=== PATIENT | female | born 1945 | race Caucasian/White ===

== ENCOUNTER → 2022-09-14 12:40 | Outpatient (BNVA) | payer MEDICARE, SELFPAY | PROVIDERS: PCP Pediatrics; Visit Provider Psychiatry & Neurology Psychiatry | DX: F32.4 Major depressive disorder, single episode, in partial remission (principal) | CPT/HCPCS: 90833; 99212 ==

== ENCOUNTER → 2023-03-10 11:25 | Outpatient (BNVA) | payer MEDICARE, SELFPAY | PROVIDERS: PCP Pediatrics; Visit Provider Psychiatry & Neurology Psychiatry | DX: F32.4 Major depressive disorder, single episode, in partial remission (principal); E78.00 Pure hypercholesterolemia, unspecified; I10 Essential (primary) hypertension | CPT/HCPCS: 90833; 99212 ==

== ENCOUNTER 2023-07-23 12:05 | Outpatient (AMB) | payer MEDICARE, SELFPAY ==
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
== END 2023-07-23 17:17 | disposition home or self-care (01) ==
LOC: HO.HOP 12:05
PROVIDERS: PCP Pediatrics; Visit Provider Psychiatry & Neurology Psychiatry
DX: E78.00 Pure hypercholesterolemia, unspecified (principal); I10 Essential (primary) hypertension; F32.4 Major depressive disorder, single episode, in partial remission
CPT/HCPCS: 90833; 99213

== ENCOUNTER → 2023-07-23 12:05 | Outpatient (BNVA) | payer MEDICARE, SELFPAY | PROVIDERS: PCP Pediatrics; Visit Provider Psychiatry & Neurology Psychiatry | DX: F32.4 Major depressive disorder, single episode, in partial remission (principal); E78.00 Pure hypercholesterolemia, unspecified; I10 Essential (primary) hypertension | CPT/HCPCS: 90833; 99212 ==

== ENCOUNTER 2023-12-30 10:56 | Outpatient (AMB) | payer MEDICARE, SELFPAY ==
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
== END 2023-12-30 12:07 | disposition home or self-care (01) ==
LOC: HO.HOP 10:56
PROVIDERS: PCP Pediatrics; Visit Provider Psychiatry & Neurology Psychiatry
DX: F32.4 Major depressive disorder, single episode, in partial remission (principal)
CPT/HCPCS: 90833; 99213

== ENCOUNTER → 2023-12-30 10:56 | Outpatient (BNVA) | payer MEDICARE, SELFPAY | PROVIDERS: PCP Pediatrics; Visit Provider Psychiatry & Neurology Psychiatry | DX: F32.4 Major depressive disorder, single episode, in partial remission (principal) | CPT/HCPCS: 99212 ==

== ENCOUNTER → 2024-03-09 11:03 | Outpatient (BNVA) | payer MEDICARE, SELFPAY | PROVIDERS: PCP Pediatrics; Visit Provider Psychiatry & Neurology Psychiatry ==

== ENCOUNTER 2024-07-26 12:51 | Outpatient (AMB) | payer MEDICARE, SELFPAY ==
--- OUTSIDE RECORDS SUMMARY | 2024-07-26 12:52 | XMS_ITS | Continuity of Care Document ---
Author Organization [facility] Address [address] [place] [address]- Care Team Providers Care Circus Train Supervisor Name Role Phone Hakeem BOOGIE, Dannie Primary Care Physician Encounter [facility] [place] Date(s): 03/30/23 - 04/29/23 [facility] [address] [place] [id number] Allergies, Adverse Reactions, Alerts Substance Reaction Severity Status Demerol HCl Rash/Headache Active Medications Calcium 600 +D oral tablet 2, tablet, By Mouth, Daily, 01/24/09 23:07:38 Start Date: 01/24/09 Stop Date: 02/23/09 Status: Ordered Fioricet Tablet By Mouth, Every 4 hours, 0 Refills, Maintenance, 03/24/19 10:42:17 EDT Start Date: 03/24/19 Status: Ordered LORazepam 1 mg oral tablet 1 tablet = 1 mg, By Mouth, 2 times a day, PRN as needed for anxiety, 0 Refills, Maintenance, 03/24/19 10:39:34 EDT, Tablet Start Date: 03/24/19 Status: Ordered Multivitamin 1, tablet, By Mouth, Daily, 01/24/09 23:07:09, Constant Indicator Start Date: 01/24/09 Stop Date: 02/23/09 Status: Ordered omeprazole 20 mg oral delayed release tablet 1 tablet = 20 mg, By Mouth, Daily, PRN Dyspepsia, # 120 tablet, 0 Refills, Maintenance, 07/15/20 13:10:00 EDT, EC Tablet Start Date: 07/15/20 Status: Ordered simvastatin 20 mg oral tablet 20 mg, 1, tablet, By Mouth, Daily at bedtime, # 30 tablet, Refills 0, Maintenance, 03/24/19 10:42:01 EDT Start Date: 03/24/19 Status: Ordered Toprol XL 50 mg oral tablet, extended release 100 mg, By Mouth, Daily, Soft Stop Start Date: 01/24/09 Stop Date: 02/23/09 Status: Ordered traZODone 100 mg oral tablet 100 mg, 1, tablet, By Mouth, Daily at bedtime, # 180 tablet, Refills 0, Maintenance, 03/24/19 10:40:26 EDT Start Date: 03/24/19 Status: Ordered Wellbutrin XL 300 mg/24 hours oral tablet, extended release 300 mg, By Mouth, Every 24 hours, 01/24/09 23:06:35 Start Date: 01/24/09 Stop Date: 02/22/09 Status: Ordered Social History Social History Type Response Smoking Status Never (less than 100 in lifetime) entered on: 02/06/22 Sex Patient Care team information Care Team Personnel Name: Dannie Palacio MD Position: Reference Physician Member Role: PCP Address: Address: [address] [place] [address]- Care Team Related Persons Name: MEE PATRICIA Address: home [address] [place] [address]
--- OUTSIDE RECORDS SUMMARY | 2024-07-26 12:52 | XMS_ITS | Continuity of Care Document ---
Author Organization [facility] Address [address] [place] [address] [address] [place] [address]- Care Team Providers Care Mechanic Senior Name Role Phone Dannie Palacio MD Primary Care Physician [place] [facility] [place]23 - 11/28/23 [facility] [address] [place], [place] [address] Allergies, Adverse Reactions, Alerts Substance Reaction [...] Reference Physician Member Role: PCP Address: Address: [address] [place] [address]- Care Team Related Persons Name: MEE PATRICIA Address: home [address] [place] [address]
--- OUTSIDE RECORDS SUMMARY | 2024-07-26 12:52 | XMS_ITS | Continuity of Care Document ---
Author Organization [facility] Address [address] [place] [address]- Care Team Providers Care Local Area Network Administrator Name Role Phone Hakeem BOOGIE, Dannie Primary Care Physician Encounter [facility] [place] Date(s): 03/08/24 - 04/07/24 [facility] [address] [place] [id number] Allergies, Adverse Reactions, Alerts Substance Reaction Severity Status Demerol HCl Rash/Headache Active Medications Calcium 600 +D oral tablet 2, tablet, By Mouth, Daily, 01/24/09 23:07:38 Start Date: 01/24/09 Stop Date: 02/23/09 Status: Ordered Colace sodium 100 mg oral capsule 100 mg, 1, capsule, By Mouth, 2 times a day, PRN, # 20 capsule, Refills 0, Tot. Refills 0, Maintenance, for constipation, 02/09/24 14:29:00 EDT, Route to Pharmacy Electronically, [facility]/pharmacy #[id number], Partial fill upon patient request if the prescriptio... Start Date: 02/09/24 Status: Ordered Fioricet Tablet By Mouth, Every 4 hours, 0 Refills, Maintenance, 03/24/19 10:42:17 EDT Start Date: 03/24/19 Status: Ordered levothyroxine 0.1 mg oral tablet 1 tablet = 100 mcg, By Mouth, Daily, # 30 tablet, 11 Refills, Maintenance, 03/09/24 15:52:00 EDT, [facility]/pharmacy #[id number], Partial fill upon patient request if the prescription is for a schedule II opioiddrug., 152.9, cm, 02/24/24 13:12:00 EDT, Height, 70... Start Date: 03/09/24 Status: Ordered LORazepam 1 mg oral tablet [...] EC Tablet Start Date: 07/15/20 Status: Ordered PROzac 10 mg oral capsule 10 mg, 1, capsule, By Mouth, Daily, # 30 capsule, Refills 0, Maintenance, 02/09/24 11:32:00 EDT, Partial fill upon patient request if the prescription is for a schedule II opioid drug. Start Date: 02/09/24 Status: Ordered simvastatin 20 mg oral tablet [...] Date: 01/24/09 Stop Date: 02/22/09 Status: Ordered Problem List Condition Confirmation Course Effective Dates Status H ealth Status Informant Bursitis of hip Confirmed Active CKD (chronic kidney disease) 1 Confirmed Active Impaired glucose metabolism 2 Confirmed Active Dyslipidemia Confirmed Active GERD (gastroesophageal reflux disease) 3 Confirmed Active Hiatal hernia Confirmed Active Hypertension Confirmed Active Migraines Confirmed Active Depression with anxiety Confirmed Active Multinodular goiter (nontoxic) Confirmed Active Osteoarthritis Confirmed Active Osteoporosis Confirmed Active RBBB Confirmed Active 1Estimated GFR between 54 and 61 in review of labs from 2021 on 2Hemoglobin A1c of 6 in late 2022 3h/o gastritis Social History Social History Type Response Smoking Status Never (less than 100 in lifetime) entered on: 02/06/22 Sex Patient Care team information Care Team Personnel Name: Issa BLAND, Kelle Position: S RN Member Role: Primary Care Nurse Name: Hakeem BOOGIE, Dannie Position: Reference Physician Member Role: PCP Address: Address: [address] [place] [address]- Care Team Related Persons Name: MEE PATRICIA Address: home [address] [place] [address]
--- OUTSIDE RECORDS SUMMARY | 2024-07-26 12:53 | XMS_ITS | Continuity of Care Document ---
Author Organization [facility] Address [address] [place] [address]- Care Team Providers Care Unscrambler Name Role Phone Hakeem BOOGIE, Dannie Primary Care Physician [phone] [place] [facility] [place](s): 03/24/23 - 04/23/23 [facility] [address] [place] [id number] Allergies, Adverse Reactions, Alerts Substance [...] Reference Physician Member Role: PCP Address: Address: [address] [place] [address]- Care Team Related Persons Name: MEE PATRICIA Address: home [address] [place] [address]
--- OUTSIDE RECORDS SUMMARY | 2024-07-26 12:53 | XMS_ITS | Continuity of Care Document ---
Author Organization [facility] Address [address] [facility] [place] [address]- Care Team Providers Care Business Rules Analyst Name Role Phone Hakeem BOOGIE, Dannie Primary Care Physician [phone] Encounter 10/22/21 - 10/29/21 [facility] [address], [address] [place] [address]- Attending Physician: Dannie Palacio MD Admitting Physician: Dannie Palacio MD Referring Physician: Dannie Palacio MD Allergies, Adverse Reactions, Alerts Substance Reaction Severity [...] (less than 100 in lifetime) entered on: 03/24/19 Sex
--- OUTSIDE RECORDS SUMMARY | 2024-07-26 12:53 | XMS_ITS | Continuity of Care Document ---
Author Organization [facility] Address [address] [place] [address]- Care Team Providers Care Copper Plater Name Role Phone Hakeem BOOGIE, Dannie Primary Care Physician Encounter [facility] [place] Date(s): 05/19/21 - 06/18/21 [facility] [address] [place] [id number] Allergies, Adverse Reactions, Alerts Substance Reaction [...]
--- OUTSIDE RECORDS SUMMARY | 2024-07-26 12:53 | XMS_ITS | Continuity of Care Document ---
Author Organization [facility] Address [address] [place] [address]- Care Team Providers Care Merchandise Carrier Name Role Phone Dannie Palacio MD Primary Care Physician [phone] Encounter [facility] [place] [facility] [id number] Date(s): 05/01/24 - 05/31/24 [facility] [address] [place] [phone] Allergies, Adverse Reactions, Alerts Substance Reaction Severity [...] 02/09/24 14:29:00 EDT, Route to Pharmacy Electronically, [facility]/pharmacy #[id number], Partial fill upon patient request if the prescriptio... Start Date: 02/09/24 Status: Ordered Fioricet Tablet By Mouth, Every 4 hours, 0 Refills, Maintenance, 03/24/19 10:42:17 EDT Start Date: 03/24/19 Status: Ordered levothyroxine 0.1 mg oral tablet See Instructions, 1 tablet By Mouth 6xweekly. Take 0.5 tabs on day 7., # 30 each, 11 Refills, Maintenance, 03/09/24 15:52:00 EDT, [facility]/pharmacy #[id number], Partial fill upon patient request if the prescription is for a schedule II opioid drug., 152.9, cm, 0... Start Date: 03/09/24 Status: Ordered LORazepam 1 [...] Reference Physician Member Role: PCP Address: Address: [address] [place] [address]- Care Team Related Persons Name: MEE PATRICIA Address: home [address] [place] [address]
--- OUTSIDE RECORDS SUMMARY | 2024-07-26 12:53 | XMS_ITS | Continuity of Care Document ---
Author Organization [facility] Address [address] [place] [address]- Care Team Providers Care Stitching Machine Operator Name Role Phone Dannie Palacio MD Primary Care Physician Encounter [facility] [place] Date(s): 07/11/20 - 08/18/[address] [address]- [facility] Attending Physician: Nick Sanchez MD Admitting Physician: Nick Sanchez MD Referring Physician: Nick Sanchez MD Allergies, Adverse Reactions, Alerts Substance Reaction Severity Status Demerol HCl Rash/Headache Active Medications Calcium 600 +D oral tablet 2, tablet, By Mouth, Daily, 01/24/09 23:07:38 Start Date: 01/24/09 Stop Date: 02/23/09 Status: Ordered Effexor XR 150 mg oral capsule, extended release 150 mg, 1, capsule, By Mouth, Daily, # 30 capsule, Refills 0, Maintenance, 03/24/19 10:39:10 EDT Start Date: 03/24/19 Status: Ordered Effexor XR 150 mg oral capsule, extended release 150 mg, By Mouth, Daily, 01/24/09 23:06:10 Start Date: 01/24/09 Stop Date: 02/23/09 Status: [...] 1 tablet = 20 mg, By Mouth, 2 times a day, # 120 tablet, 0 Refills, Maintenance, 07/15/20 13:10:00 EDT, EC Tablet Start Date: 07/15/20 Status: Ordered simvastatin 20 mg oral tablet 20 mg, 1, tablet, By Mouth, Daily at bedtime, # 30 tablet, Refills 0, Maintenance, 03/24/19 10:41:18 EDT Start Date: 03/24/19 Status: Ordered simvastatin 20 mg oral tablet 20 mg, 1, tablet, By Mouth, Daily at bedtime, # 30 tablet, Refills 0, Maintenance, 03/24/19 10:42:01 EDT Start Date: 03/24/19 Status: Ordered Toprol XL 50 mg oral tablet, extended release 50 mg, By Mouth, Daily, 01/24/09 23:06:22 Start Date: 01/24/09 Stop Date: 02/23/09 Status: Ordered traZODone 100 mg oral tablet 100 mg, 1, tablet, By Mouth, 2 times a day, # 180 tablet, Refills 0, Maintenance, 03/24/19 10:40:26EDT Start Date: 03/24/19 Status: Ordered trazodone 100 mg oral tablet 100 mg, 1, tablet, By Mouth, 3 times a day, 01/24/09 23:06:53 Start Date: 01/24/09 Stop Date: 02/23/09 Status: Ordered Wellbutrin XL 300 mg/24 hours oral tablet, extended release 300 mg, By Mouth, Every 24 hours, 01/24/09 23:06:35 Start Date: 01/24/09 Stop Date: 02/22/09 Status: Ordered Social History Social History Type Response Smoking Status Never (less than 100 in lifetime) entered on: 03/24/19 Sex
--- OUTSIDE RECORDS SUMMARY | 2024-07-26 12:53 | XMS_ITS | Continuity of Care Document ---
Author Organization [facility] Address [address] [place] [address] [address] [place] [address]- Care Team Providers Care Mortar Mixer Name Role Phone Dannie Palacio MD Primary Care Physician [phone] [place] [facility] [place] - 03/[place]/[address] [place], [place] [address] Attending Physician: Douglas BOOGIE, May Referring Physician: Dannie Palacio MD Allergies, Adverse [...] 02/09/24 14:29:00 EDT, Route to Pharmacy Electronically, [facility]/pharmacy #[id number], Partial fill upon patient request if the prescriptio... Start Date: 02/09/24 Status: Ordered Fioricet Tablet By Mouth, Every 4 hours, 0 Refills, Maintenance, 03/24/19 10:42:17 EDT Start Date: 03/24/19 Status: Ordered levothyroxine 0.112 mg oral tablet 1 tablet = 112 mcg, By Mouth, Daily, # 30 tablet, 2 Refills, Maintenance, 02/09/24 14:29:00 EDT, Tablet, [facility]/pharmacy #[id number], Partial fill upon patient request if the prescription is for a schedule IIopioid drug., 152.9, cm, 02/09/24 11:34:00 EDT, Hei... Start Date: 02/09/24 Stop Date: 05/09/24 Status: Ordered LORazepam 1 mg oral tablet [...] of 6 in late 2022 3h/o gastritis Vital Signs Most recent to oldest [Reference Range]: 1 Height 152.9 cm (02/24/24 1:12 PM) Weight 69.2 kg (02/24/24 1:12 PM) Pulse Rate [55-90 bpm] 81 bpm (02/24/24 1:12 PM) Body Mass Index [18.5-24.99 kg/m2] 29.6 kg/m2 *H* (02/24/24 1:12 PM) Blood Pressure [90-138/55-84 mm Hg] 159/ 85mm Hg *H* (02/24/24 1:12 PM) Temperature [96.8-100.4 DegF] 97.9 DegF (02/24/24 1:12 PM) Blood pressure sites Arm, left (02/24/24 1:12 PM) Temperature Route Temporal (02/24/24 1:12 PM) Social History Social History Type Response Smoking Status Never (less than 100 in lifetime) entered on: 02/06/22 Sex Patient Care team information Care Team Personnel Name: Kelle Parsons RN Position: ALISHA RN Member Role: Primary Care Nurse Name: Dannie Palacio MD Position: Reference Physician Member Role: PCP Address: Address: [address] [place] [address] Care Team Related Persons Name: HARSHADMEE Address: home [address] [place] [address]
--- OUTSIDE RECORDS SUMMARY | 2024-07-26 12:53 | XMS_ITS | Continuity of Care Document ---
Author Organization [facility] Address [address] [place] [address]- Care Team Providers Care Dry Mop Maker Name Role Phone Hakeem BOOGIE, Dannie Primary Care Physician [place] [facility] [place](s): 05/25/24 - 06/24/24 [facility] [address] [place] [id number] Allergies, Adverse Reactions, Alerts Substance Reaction Severity [...] 02/09/24 14:29:00 EDT, Route to Pharmacy Electronically, [facility]/pharmacy #[id number], Partial fill upon patient request if the prescriptio... Start Date: 02/09/24 Status: Ordered Fioricet Tablet By Mouth, Every 4 hours, 0 Refills, Maintenance, 03/24/19 10:42:17 EDT Start Date: 03/24/19 Status: Ordered levothyroxine 0.1 mg oral tablet See Instructions, 1 tablet By Mouth 6xweekly. Take 0.5 tabs on day 7., # 30 each, 11 Refills, Maintenance, 03/09/24 15:52:00 EDT, [facility]/pharmacy #[id number], Partial fill upon patient request [...] Reference Physician Member Role: PCP Address: Address: [address] [place] [address] Care Team Related Persons Name: HARSHADMEE Address: home [address] [place] [address]
--- OUTSIDE RECORDS SUMMARY | 2024-07-26 12:53 | XMS_ITS | Continuity of Care Document ---
Author Organization [facility] Address [address] [place] [address]- Care Team Providers Care Bowling Alley Manager Name Role Phone Dannie Palacio MD Primary Care Physician [phone] Encounter [facility] [place] Date(s): 06/14/20 - 08/15/20 [facility] [address] [place] [address]- [facility] Attending Physician: Allyn Wei MD Admitting Physician: Allyn Wei MD Referring Physician: Dannie Palacio MD Allergies, [...]
--- OUTSIDE RECORDS SUMMARY | 2024-07-26 12:53 | XMS_ITS | Continuity of Care Document ---
Author Organization [facility] Address [address] [place] [address]- Care Team Providers Care Filenet P8 Developer Name Role Phone Dannie Palacio MD Primary Care Physician [phone] Encounter [facility] [place] Date(s): 07/15/20 - 08/14/20 [facility] [address] [place] [address]- [facility] Attending Physician: Claire Kennedy Admitting Physician: Claire Kennedy Referring Physician: AdmtrClaire Allergies, Adverse Reactions, Alerts Substance Reaction Severity [...]
--- OUTSIDE RECORDS SUMMARY | 2024-07-26 12:53 | XMS_ITS | Continuity of Care Document ---
Author Organization [facility] Address [address] [place] [address]- Care Team Providers Care Director Of Event Sales Name Role Phone Hakeem BOOGIE, Dannie Primary Care Physician En[place] [facility] [place] Date(s): 10/06/23 - 11/05/23 [facility] [address] [place] [address] [[email or web address]] Allergies, Adverse Reactions, Alerts Substance Reaction Severity [...] Reference Physician Member Role: PCP Address: Address: [address] [place] [address]- Care Team Related Persons Name: MEE PATRICIA Address: home [address] [place] [address]
--- OUTSIDE RECORDS SUMMARY | 2024-07-26 12:53 | XMS_ITS | Continuity of Care Document ---
Author Organization [facility] Address [address] [place] [address]- Care Team Providers Care Clerk Entry Level Name Role Phone Hakeem BOOGIE, Dannie [id number]s): [facility] - 02/02/24 [facility] [address], [place] [address] Attending Physician: Fam Wilkerson DO Referring Physician: Douglas BOOGIE, May Allergies, Adverse Reactions, Alerts Substance Reaction Severity [...] of 6 in late 2022 3h/o gastritis Procedures Procedure Date Related Diagnosis Body Site Status Appendectomy 1958 Completed Cervical spine surgery Co mpleted Hysterectomy and left salpingo-oophorectomy sample 1 C ompleted Tubal ligation Completed 1Reportedly some residual right ovarian tissue Vital Signs Most recent to oldest [Reference Range]: 1 Height 152.9 cm (01/26/24 11:55 AM) Weight 69.9 kg (01/26/24 11:55 AM) Oxygen Saturation [94-100 %] 97 % (01/26/24 11:55 AM) Pulse Rate [55-90 bpm] 88 bpm (01/26/24 11:55 AM) Body Mass Index [18.5-24.99 kg/m2] 29.9 kg/m2 *H* (01/26/24 11:55 AM) Blood Pressure [90-138/55-84 mm Hg] 146/ 63mm Hg *H* (01/26/24 11:55 AM) Respiratory Rate [16-30 br/min] 18 br/mi n (01/26/24 11:55 AM) Blood pressure sites Arm, left (01/26/24 11:55 AM) Weight Obtained Via Standing scale (01/26/24 11:55 AM) Social History Social History Type Response Smoking Status Never (less than 100 in lifetime) entered on: 02/06/22 Sex EKG study * Event Display: ECG 12-Lead Authored Date: Please click on pdf link to open report * Event Display: ECG 12-Lead Authored Date: Ventricular Rate: 83 BPM Atrial Rate: 83 BPM P-R Interval: 150 ms QRS Duration: 124 ms Q-T Interval: 388 ms QTC Calculation(Bazett): 455 ms P [place]: 22 degrees R [place]: -10 degrees T [place]: 14 degrees Normal sinus rhythm Right bundle branch block Moderate voltage criteria for LVH, may be normal variant Abnormal ECG When compared with ECG of 06-FEB-2022 07:55, No significant change was found Confirmed by PAZ LUNSFORD MD ([id number]) on 01/26/2024 12:13:37 PM [place]: PAZ LUNSFORD MD Patient Care team information Care Team Personnel Name: Dannie Palacio MD Position: Reference Physician Member Role: PCP Address: Address: [address] [place] [address]- Care Team Related Persons Name: MEE PATRICIA Address: home [address] [place] [address]
--- OUTSIDE RECORDS SUMMARY | 2024-07-26 12:53 | XMS_ITS | Continuity of Care Document ---
Author Organization [facility] Address [address] [place] [address]- Care Team Providers Care Principal Security Architect Name Role Phone Hakeem BOOGIE, Dannie Primary Care Physician En[facility] [place] Date(s): 06/23/24 - 07/23/24 [facility] [address] [place] [id number] Allergies, Adverse Reactions, Alerts Substance Reaction [...] 02/09/24 14:29:00 EDT, Route to Pharmacy Electronically, [facility]/pharmacy #[id number], Partial fill upon patient request if the prescriptio... Start Date: 02/09/24 Status: Ordered Fioricet Tablet By Mouth, Every 4 hours, 0 Refills, Maintenance, 03/24/19 10:42:17 EDT Start Date: 03/24/19 Status: Ordered levothyroxine 0.1 mg oral tablet See Instructions, 1 tablet By Mouth 6xweekly. Take 0.5 tabs on day 7., # 30 each, 11 Refills, Maintenance, 03/09/24 15:52:00 EDT, [facility]/pharmacy #[id number], Partial fill upon patient request if [...] Reference Physician Member Role: PCP Address: Address: [address] [place] [address] Care Team Related Persons Name: HARSHADMEE Address: home [address] [place] [address]
--- OUTSIDE RECORDS SUMMARY | 2024-07-26 12:53 | XMS_ITS | Continuity of Care Document ---
Author Organization [facility] Address [address] [place] [address] [address] [place] [address]- Care Team Providers Care Jukebox Coin Collector Name Role Phone Dannie Palacio MD Primary Care Physician [place] [facility] [place] Date(s): 11/25/23 - 12/25/23 [facility] [address] [place], [place] [address] Allergies, Adverse Reactions, Alerts Substance Reaction Severity [...] Reference Physician Member Role: PCP Address: Address: [address] [place] [address]- Care Team Related Persons Name: MEE PATRICIA Address: home [address] [place] [address]
--- OUTSIDE RECORDS SUMMARY | 2024-07-26 12:53 | XMS_ITS | Continuity of Care Document ---
Author Organization [facility] Address [address] [place] [address]- Care Team Providers Care Crozer Operator Name Role Phone Hakeem BOOGIE, Dannie Primary Care Physician [phone] En[place] [facility] [place] Date(s): 10/08/23 - 11/07/23 [facility] [address] [place] [address] [...] Reference Physician Member Role: PCP Address: Address: [address] [place] [address]- Care Team Related Persons Name: MEE PATRICIA Address: home [address] [place] [address]
--- OUTSIDE RECORDS SUMMARY | 2024-07-26 12:53 | XMS_ITS | Continuity of Care Document ---
Author Organization [facility] Address [address] [place] [address]- Care Team Providers Care Regional Intermodal Truck Driver Name Role Phone Dannie Palacio MD Primary Care Physician [phone] Encounter [facility] [place] Date(s): 09/05/21 - 10/19/21 [facility] [address] [place] [address] Attending Physician: Gloria Beltran MD Admitting Physician: Devin BOOGIE, Gloria Referring Physician: Dannie Palacio MD Allergies, Adverse [...]
--- OUTSIDE RECORDS SUMMARY | 2024-07-26 12:53 | XMS_ITS | Continuity of Care Document ---
Author Organization [facility] Address [address] [place] [address]- Care Team Providers Care Maintenance Technician 3Rd Shift Name Role Phone Hakeem BOOGIE, Dannie Primary Care Physician [place] [facility] [place] Date(s[place] 05/07/21 - 06/06/21 [facility] [address] [place] [address] Attending Physician: Claire Kennedy Admitting Physician: Claire [...]
--- OUTSIDE RECORDS SUMMARY | 2024-07-26 12:53 | XMS_ITS | Continuity of Care Document ---
Author Organization [facility] Address [address] [place] [address]- Care Team Providers Care Maintenance Services Dispatcher Name Role Phone Hakeem BOOGIE, Dannie Primary Care Physician En[place] [facility] [place] Date(s): 03/09/24 - 04/08/24 [facility] [address] [place] [address] [...] 02/09/24 14:29:00 EDT, Route to Pharmacy Electronically, [facility]/pharmacy #[id number], Partial fill upon patient request if the prescriptio... Start Date: 02/09/24 Status: Ordered Fioricet Tablet By Mouth, Every 4 hours, 0 Refills, Maintenance, 03/24/19 10:42:17 EDT Start Date: 03/24/19 Status: Ordered levothyroxine 0.1 mg oral tablet 1 tablet = 100 mcg, By Mouth, Daily, # 30 tablet, 11 Refills, Maintenance, 03/09/24 15:52:00 EDT, [facility]/pharmacy #[id number], Partial fill upon patient request if [...] Reference Physician Member Role: PCP Address: Address: [address] [place] [address] Care Team Related Persons Name: MEE PATRICIA Address: home [address] [place] [address]
--- OUTSIDE RECORDS SUMMARY | 2024-07-26 12:53 | XMS_ITS | Continuity of Care Document ---
Author Organization [facility] Address [address] [place] [address]- Care Team Providers Care Veterinary Laboratory Diagnostician Name Role Phone Hakeem BOOGIE, Dannie Primary Care Physician [place] [facility] [place] 12/21/23 - 01/20/24 [facility] [address] [place] [phone] Allergies, Adverse Reactions, Alerts Substance Reaction [...] Reference Physician Member Role: PCP Address: Address: [address] [place] [address]- Care Team Related Persons Name: MEE PATRICIA Address: home [address] [place] [address]
--- OUTSIDE RECORDS SUMMARY | 2024-07-26 12:53 | XMS_ITS | Continuity of Care Document ---
Author Organization [facility] Address [address] [place] [address]- Care Team Providers Care Stay Cutter Name Role Phone Hakeem BOOGIE, Dannie Primary Care Physician En[place] [facility] [place] Date(s): 03/04/23 - 04/03/23 [facility] [address] [place] [address] Allergies, Adverse Reactions, Alerts Substance Reaction [...] Reference Physician Member Role: PCP Address: Address: [address] [place] [address]- Care Team Related Persons Name: MEE PATRICIA Address: home [address] [place] [address]
--- OUTSIDE RECORDS SUMMARY | 2024-07-26 12:53 | XMS_ITS | Continuity of Care Document ---
Author Organization [facility] Address [address] [place] [address]- Care Team Providers Care Sales Floor Manager Name Role Phone Hakeem BOOGIE, Dannie Primary Care Physician Encounter [facility] [place] Date(s): 07/23/21 - 08/22/21 [facility] [address] [place] [address] Allergies, Adverse Reactions, Alerts Substance [...]
--- OUTSIDE RECORDS SUMMARY | 2024-07-26 12:53 | XMS_ITS | Continuity of Care Document ---
Author Organization [facility] Address [address] [place] [address]- Care Team Providers Care Leasing Property Manager Name Role Phone Hakeem BOOGIE, Dannie Primary Care Physician [phone] En[place] [facility] [place] Date(s): 12/21/23 - 01/20/24 [facility] [address] [place] [address] Allergies, Adverse Reactions, Alerts Substance [...] Physician Member Role: PCP Address: Address: [address] [place] [address]- Care Team Related Persons Name: MEE PATRICIA Address: home [address] [place] [address]
--- OUTSIDE RECORDS SUMMARY | 2024-07-26 12:53 | XMS_ITS | Continuity of Care Document ---
Author Organization [facility] Address [address] [place] [address]- Care Team Providers Care Head Of Global Strategic Partnerships Name Role Phone Dannie Palacio MD Primary Care Physician [phone] [place] [facility] [place]10/[place] - 06/25/21 [facility] [address] [place] [address] Attending Physician: Gloria Beltran MD Admitting Physician: [...]
--- OUTSIDE RECORDS SUMMARY | 2024-07-26 12:53 | XMS_ITS | Continuity of Care Document ---
Author Organization [facility] Address [address] [place] [address] [address] [place] [address]- Care Team Providers Care Aircraft Motor Mechanic Name Role Phone Dannie Palacio MD Primary Care Physician Encounter [facility] [place] Date(s): 11/25/23 - 12/25/23 [facility] [address] [place], [place] [address] Allergies, Adverse Reactions, Alerts Substance Reaction Severity [...] Reference Physician Member Role: PCP Address: Address: [address] [place] [address]- Care Team Related Persons Name: MEE PATRICIA Address: home [address] [place] [address]
--- OUTSIDE RECORDS SUMMARY | 2024-07-26 12:53 | XMS_ITS | Continuity of Care Document ---
Author Organization [facility] Address [address] [place] [address] [address] [place] [address]- Care Team Providers Care Gastrointestinal Technician Name Role Phone Hakeem BOOGIE, Dannie Primary Care Physician Encounter [facility] [place] Date(s): 10/28/23 - 11/04/23 [facility] [address] [place], [place] [address] Attending Physician: Douglas BOOGIE, May Referring Physician: Samantha Cordova MD Allergies, Adverse Reactions, Alerts Substance Reaction [...] Date: 01/24/09 Stop Date: 02/22/09 Status: Ordered Vital Signs Most recent to oldest [Reference Range]: 1 Height 152.9 cm (10/28/23 9:17 AM) Weight 70.0 kg (10/28/23 9:17 AM) Pulse Rate [55-90 bpm] 83 bpm (10/28/23 9:17 AM) Body Mass Index [18.5-24.99 kg/m2] 29.94 kg/m2 *H* (10/28/23 9:17 AM) Blood Pressure [90-138/55-84 mm Hg] 178/ 78mm Hg *H* (10/28/23 9:17 AM) Temperature [96.8-100.4 DegF] 97.1 DegF (10/28/23 9:17 AM) Blood pressure sites Arm, left (10/28/23 9:17 AM) Temperature Route Temporal (10/28/23 9:17 AM) Social History Social History Type Response Smoking Status Never (less than 100 in lifetime) entered on: 02/06/22 Sex Patient Care team information Care Team Personnel Name: Dannie Palacio MD Position: Reference Physician Member Role: PCP Address: Address: [address] [place] [address]- Care Team Related Persons Name: MEE PATRICIA Address: home [address] [place] [address]
--- OUTSIDE RECORDS SUMMARY | 2024-07-26 12:53 | XMS_ITS | Continuity of Care Document ---
Author Organization [facility] Address [address] [place] [address]- Care Team Providers Care Electric Cutter Operator Name Role Phone Hakeem BOOGIE, Dannie Primary Care Physician [facility] [place] Date(s): 09/19/21 - 10/19/21 [facility] [address] [place] [address] Attending Physician: Claire Kennedy Admitting Physician: Claire Kennedy Referring Physician: Admtr ArClif Allergies, Adverse Reactions, Alerts Substance Reaction Severity [...]
--- OUTSIDE RECORDS SUMMARY | 2024-07-26 12:53 | XMS_ITS | Continuity of Care Document ---
Author Organization [facility] Address [address] [place] [address]- Care Team Providers Care Horizontal Resaw Operator Name Role Phone Hakeem BOOGIE, Dannie Primary Care Physician [phone] Encounter [facility] [place] Date(s): 09/09/21 - 10/09/21 [facility] [address] [place] [phone] Allergies, Adverse Reactions, Alerts Substance Reaction Severity [...]
--- OUTSIDE RECORDS SUMMARY | 2024-07-26 12:53 | XMS_ITS | Continuity of Care Document ---
Author Organization [facility] Address [address] [place] [address]- Care Team Providers Care Call Or Contact Centre Manager Name Role Phone Hakeem BOOGIE, Dannie Primary Care Physician [place] [facility] [place]): [place]21 - 08/31/21 [facility] [address] [place] [id number] Attending Physician: Not on Staff, Attending MD Allergies, Adverse Reactions, Alerts Substance Reaction [...]
--- OUTSIDE RECORDS SUMMARY | 2024-07-26 12:53 | XMS_ITS | Continuity of Care Document ---
Author Organization [facility] Address [address] [place] [address] [address] [place] [address]- Care Team Providers Care Nurse Advocate Name Role Phone Dannie Palacio MD Primary Care Physician [place] [facility] [place] 12/01/23 - 12/31/23 [facility] [address] [place], [place] [address] Allergies, Adverse Reactions, Alerts Substance [...] Physician Member Role: PCP Address: Address: [address] [place] [address]- Care Team Related Persons Name: MEE PATRICIA Address: home [address] [place] [address]
--- OUTSIDE RECORDS SUMMARY | 2024-07-26 12:53 | XMS_ITS | Continuity of Care Document ---
Author Organization [facility] Address [address] [place] [address]- Care Team Providers Care Litigation Docket Manager Name Role Phone Hakeem BOOGIE, Dannie Primary Care Physician En[place] [facility] [place] Date(s): 05/07/21 - 05/14/21 [facility] [address] [place] [id number] Attending Physician: Allyn Wei MD Referring Physician: Dannie [...] recent to oldest [Reference Range]: 1 Height 155 cm (05/07/21 9:48 AM) Weight 67.8 kg (05/07/21 9:48 AM) Oxygen Saturation [94-100 %] 97 % (05/07/21 9:48 AM) Pulse Rate [55-90 bpm] 80 bpm (05/07/21 9:48 AM) Body Mass Index [18.5-24.99] 28.22 *H* (05/07/21 9:48 AM) Blood Pressure [90-138/55-84 mm Hg] 118/ 66mm Hg (05/07/21 9:48 AM) Temperature [96.8-100.4 DegF] 96.8 DegF (05/07/21 9:48 AM) Blood pressure sites Arm, right (05/07/21 9:48 AM) Temperature Route Temporal (05/07/21 9:48 AM) Social History Social History Type Response Smoking Status Never (less than 100 in lifetime) entered on: 03/24/19 Sex
--- OUTSIDE RECORDS SUMMARY | 2024-07-26 12:53 | XMS_ITS | Continuity of Care Document ---
Author Organization [facility] Address [address] [place] [address]- Care Team Providers Care Search Marketing Analyst Name Role Phone Hakeem BOOGIE, Dannie Primary Care Physician [phone] En[place] [facility] [place](s[place] 05/11/24 - 06/10/24 [facility] [address] [place] [address] Allergies, Adverse Reactions, Alerts Substance Reaction Severity [...] 02/09/24 14:29:00 EDT, Route to Pharmacy Electronically, [facility]/pharmacy #[id number], Partial fill upon patient request if the prescriptio... Start Date: 02/09/24 Status: Ordered Fioricet Tablet By Mouth, Every 4 hours, 0 Refills, Maintenance, 03/24/19 10:42:17 EDT Start Date: 03/24/19 Status: Ordered levothyroxine 0.1 mg oral tablet See Instructions, 1 tablet By Mouth 6xweekly. Take 0.5 tabs on day 7., # 30 each, 11 Refills, Maintenance, 03/09/24 15:52:00 EDT, [facility]/pharmacy #[id number], Partial fill upon patient request [...] Reference Physician Member Role: PCP Address: Address: [address] [place] [address] Care Team Related Persons Name: HARSHADMEE Address: home [address] [place] [address]
--- OUTSIDE RECORDS SUMMARY | 2024-07-26 12:53 | XMS_ITS | Continuity of Care Document ---
Author Organization [facility] Address [address] [place] [address]- Care Team Providers Care Database Developer Name Role Phone Hakeem BOOGIE, Dannie Primary Care Physician [place] [facility] [place] 06/07/21 [facility] [address] [place] [id number] Allergies, Adverse [...]
--- OUTSIDE RECORDS SUMMARY | 2024-07-26 12:53 | XMS_ITS | Continuity of Care Document ---
Author Organization [facility] Address [address] [place] [address] [address] [place] [address]- Care Team Providers Care Care Tech Name Role Phone Dannie Palacio MD Primary Care Physician [place] [facility] [place](s): 02/10/24 - 03/11/[address] [place], [place] [address] Allergies, Adverse Reactions, Alerts Substance Reaction [...] 02/09/24 14:29:00 EDT, Route to Pharmacy Electronically, [facility]/pharmacy #[id number], Partial fill upon patient request if the prescriptio... Start Date: 02/09/24 Status: Ordered Fioricet Tablet By Mouth, Every 4 hours, 0 Refills, Maintenance, 03/24/19 10:42:17 EDT Start Date: 03/24/19 Status: Ordered levothyroxine 0.1 mg oral tablet 1 tablet = 100 mcg, By Mouth, Daily, # 30 tablet, 11 Refills, Maintenance, 03/09/24 15:52:00 EDT, [facility]/pharmacy #[id number], Partial fill upon patient request if [...] Team Personnel Name: Kelle Parsons RN Position: S RN Member Role: Primary Care Nurse Name: Hakeem BOOGIE, Dannie Position: Reference Physician Member Role: PCP Address: Address: [address] [place] [address]- Care Team Related Persons Name: ERAL PATRICIAA Address: home [address] [place] [address]
--- OUTSIDE RECORDS SUMMARY | 2024-07-26 12:53 | XMS_ITS | Continuity of Care Document ---
Author Organization [facility] Address [address] [place] [address] [address] [place] [address]- Care Team Providers Care Roll Dough Divider Name Role Phone Dannie Palacio MD Primary Care Physician [place] [facility] [place](s): 02/24/24 - 03/25/[address] [place], [place] [address] Attending Physician: Admtr, Claire Admitting Physician: Admtr, Ar8 Referring Physician: Admtr, Ar8 Allergies, Adverse Reactions, Alerts Substance Reaction Severity [...] 02/09/24 14:29:00 EDT, Route to Pharmacy Electronically, [facility]/pharmacy #[id number], Partial fill upon patient request if the prescriptio... Start Date: 02/09/24 Status: Ordered Fioricet Tablet By Mouth, Every 4 hours, 0 Refills, Maintenance, 03/24/19 10:42:17 EDT Start Date: 03/24/19 Status: Ordered levothyroxine 0.1 mg oral tablet 1 tablet = 100 mcg, By Mouth, Daily, # 30 tablet, 11 Refills, Maintenance, 03/09/24 15:52:00 EDT, [facility]/pharmacy #[id number], Partial fill upon [...] Reference Physician Member Role: PCP Address: Address: [address] [place] [address]- Care Team Related Persons Name: MEE PATRICIA Address: home [address] [place] [address]
--- OUTSIDE RECORDS SUMMARY | 2024-07-26 12:53 | XMS_ITS | Continuity of Care Document ---
Author Organization [facility] Address [address] [place] [id number]- Care Team Providers Care Dent Remover Name Role Phone Hakeem BOOGIE, Dannie Primary Care Physician Encounter [facility] [place] Date(s): 04/02/22 - 05/02/22 [facility] [address] [place] [id number] Allergies, Adverse Reactions, Alerts Substance Reaction [...]
--- OUTSIDE RECORDS SUMMARY | 2024-07-26 12:53 | XMS_ITS | Continuity of Care Document ---
Author Organization [facility] Address [address] [place] [phone]- Care Team Providers Care Cook Fast Food Name Role Phone Dannie Palacio MD Primary Care Physician [phone] Encounter [facility] [place] Date(s): 10/04/23 - 11/03/23 [facility] [address] [place] [id number] Attending Physician: Claire Kennedy Admitting Physician: Claire [...] 100 in lifetime) entered on: 02/06/22 Sex Radiology * Event Display: Bone Density Authored Date: * Event Display: Ultrasound Miscellaneous Authored Date: * Event Display: MRI Head, Non- BH Authored Date: * Event Display: MRI Head, Non- BH Authored Date: Patient Care team information Care Team Personnel Name: Dannie Palacio MD Position: Reference Physician Member Role: PCP Address: Address: [address] [place] [address]- Care Team Related Persons Name: MEE PATRICIA Address: home [address] [place] [address]
--- OUTSIDE RECORDS SUMMARY | 2024-07-26 12:54 | XMS_ITS | Continuity of Care Document ---
Author Organization [facility] Address [address] [place] [phone]- Care Team Providers Care Advertising Traffic Manager Name Role Phone Dannie Palacio MD Primary Care Physician Encounter [facility] [place] Date(s): 07/15/20 - 07/22/20 [facility] [address] [place] [phone]- [facility] Attending Physician: Allyn Wei MD Referring Physician: [...] oldest [Reference Range]: 1 Height 155 cm (07/15/20 12:56 PM) Weight 72.2 kg (07/15/20 12:56 PM) Pulse Rate [55-90 bpm] 86 bpm (07/15/20 12:56 PM) Body Mass Index [18.5-24.99] 30.05 *>HHI* (07/15/20 12:56 PM) Blood Pressure [90-138/55-84 mm Hg] 140/ 76mm Hg *H* (07/15/20 12:56 PM) Temperature [96.8-100.4 DegF] 96.7 DegF *L* (07/15/20 12:56 PM) Blood pressure sites Arm, right (07/15/20 12:56 PM) Temperature Route Temporal (07/15/20 12:56 PM) Dry Weight 72.2 kg (07/15/20 12:56 PM) Weight Obtained Via Standing scale (07/15/20 12:56 PM) Dry Weight Obtained Via Standing scale (07/15/20 12:56 PM) Social History Social History Type Response Smoking Status Never (less than 100 in lifetime) entered on: 03/24/19 Sex
--- OUTSIDE RECORDS SUMMARY | 2024-07-26 12:54 | XMS_ITS | Continuity of Care Document ---
Author Organization [facility] Address [address] [place] [phone]- Care Team Providers Care Senior Patient Account Representative Name Role Phone Hakeem BOOGIE, Dannie Primary Care Physician [phone] Encounter [facility] [place] Date(s): 04/13/23 - 05/13/23 [facility] [address] [place] [id number] Allergies, Adverse Reactions, Alerts Substance [...] Reference Physician Member Role: PCP Address: Address: [address] [place] [phone]- Care Team Related Persons Name: MEE PATRICIA Address: home [address] [place] [id number]
--- OUTSIDE RECORDS SUMMARY | 2024-07-26 12:54 | XMS_ITS | Continuity of Care Document ---
Author Organization [facility] Address [address] [place] [phone]- Care Team Providers Care Breeder Hen Service Technician Name Role Phone Hakeem BOOGIE, Dannie Primary Care Physician Encounter [facility] [place] Date(s): 10/15/23 - 11/14/23 [facility] [address] [place] [id number] Allergies, Adverse Reactions, Alerts Substance [...] Reference Physician Member Role: PCP Address: Address: [address] [place] [address]- Care Team Related Persons Name: MEE PATRICIA Address: home [address] [place] [id number]
--- OUTSIDE RECORDS SUMMARY | 2024-07-26 12:54 | XMS_ITS | Continuity of Care Document ---
Author Organization [facility] Address [address] [place] [phone]- Care Team Providers Care Gel Coat Sprayer Name Role Phone Hakeem BOOGIE, Dannie Primary Care Physician Encounter [facility] [place] Date(s): 09/22/21 - 10/22/21 [facility] [address] [place] [id number] Allergies, Adverse Reactions, Alerts Substance Reaction Severity [...]
--- OUTSIDE RECORDS SUMMARY | 2024-07-26 12:54 | XMS_ITS | Continuity of Care Document ---
Author Organization [facility] Address [address] [place] [phone]- Care Team Providers Care Child Attendant Name Role Phone Dannie Palacio MD Primary Care Physician [phone] [place] [facility] [place] 07/16/20 - 08/15/20 [facility] [address] [place] [phone]- [facility] Attending Physician: Claire Kennedy Admitting Physician: Claire [...]
--- OUTSIDE RECORDS SUMMARY | 2024-07-26 12:54 | XMS_ITS | Continuity of Care Document ---
Author Organization [facility] ter Address [address] [place] [id number]- Care Team Providers Care Practice Consultant Name Role Phone Dannie Palacio MD Primary Care Physician [phone] [place] [facility] 02/09[place]24 - 02/10/[address] [id number] Discharge Disposition: A-D/C Home Attending Physician: May Cole MD Admitting Physician: May Cole MD Referring Physician: May Cole MD Allergies, Adverse Reactions, Alerts Substance Reaction Severity Status Demerol HCl Rash/Headache Active Medications benzonatate 100 mg oral capsule 1 capsule = 100 mg, By Mouth, 3 times a day, PRN as needed for cough, for 14 days, # 42 capsule, 0 Refills, Acute 02/24/24 11:55:00 EDT, 02/10/24 11:55:00 EDT, Capsule, [id number], Partial fill upon patient request if the prescription is for a... Start Date: 02/10/24 Stop Date: 02/24/24 Status: Ordered Calcium 600 +D oral tablet 2, tablet, By Mouth, Daily, 01/24/09 23:07:38 Start Date: 01/24/09 Stop Date: 02/23/09 Status: Ordered Colace sodium 100 mg oral capsule 100 mg, 1, capsule, By Mouth, 2 times a day, PRN, # 20 capsule, Refills 0, Tot. Refills 0, Maintenance, for constipation, 02/09/24 14:29:00 EDT, Route to Pharmacy Electronically, [facility]/pharmacy #[id number], Partial fill upon patient request if the prescriptio... Start Date: 02/09/24 Status: Ordered Fioricet Tablet By Mouth, Every 4 hours, 0 Refills, Maintenance, 03/24/19 10:42:17 EDT Start Date: 03/24/19 Status: Ordered levothyroxine 0.112 mg oral tablet 1 tablet = 112 mcg, By Mouth, Daily, # 30 tablet, 2 Refills, Maintenance, 02/09/24 14:29:00 EDT, Tablet, [facility]/pharmacy #[id number], Partial fill upon patient request if [...] EC Tablet Start Date: 07/15/20 Status: Ordered oxyCODONE 5 mg oral tablet 5 mg, Tablet, By Mouth, Every 4 hours, PRN for Pain , Moderate, Routine, 02/09/24 14:56:00 EDT Start Date: 02/09/24 Stop Date: 02/10/24 Status: Discontinued oxyCODONE 5 mg oral tablet 5 mg, By Mouth, Every 6 hours, PRN, for 3 days, # 12 tablet, Refills 0, Tot. Refills 0, Acute 02/12/24 14:29:00 EDT, Pain , Moderate, 02/09/24 14:29:00 EDT, Route to Pharmacy Electronically, [facility]/pharmacy #[id number], Partial fill upon patient request if the... Start Date: 02/09/24 Stop Date: 02/12/24 Status: Ordered PROzac 10 mg oral capsule [...] Start Date: 03/24/19 Status: Ordered Toprol XL 100 mg oral tablet, extended release 100 mg, XL Tablet, By Mouth, 02/10/24 9:00:00 EDT Start Date: 02/10/24 Stop Date: 02/10/24 Status: Completed Toprol XL 50 mg oral tablet, extended [...] Procedure Date Related Diagnosis Body Site Status Thyroidectomy, total or complete 02/09/24 Completed Vital Signs Most recent to oldest [Reference Range]: 1 2 3 Height 152.9 cm (02/09/24 5:52 PM) 152.9 cm (02/09/24 11:21 AM) 152.9 cm (02/07/24 3:30 PM) Weight 70.1 kg (02/09/24 5:52 PM) 70.1 kg (02/09/24 11:21 AM) 69.9 kg (02/07/24 3:30 PM) Oxygen Saturation [94-100 %] 97 % (02/10/24 7:00 AM) 95 % (02/10/24 4:49 AM) 93 % *L* (02/10/24 12:34 AM) Pulse Rate [55-90 bpm] 88 bpm (02/10/24 8:56 AM) 87 bpm (02/10/24 7:00 AM) 93 bpm *H* (02/10/24 4:49 AM) Body Mass Index [18.5-24.99 kg/m2] 29.98 kg/m2 *H* (02/09/24 5:52 PM) 29.98 kg/m2 *H* (02/09/24 11:21 AM) 29.9 kg/m2 *H* (02/07/24 3:30 PM) Blood Pressure [90-138/55-84 mm Hg] 140/70mm Hg *H* (02/10/24 8:56 AM) 145/70mm Hg *H* (02/10/24 7:00 AM) 140/68mm Hg *H* (02/10/24 4:49 AM) Respiratory Rate [16-30 br/min] 16 br/min (02/10/24 11:00 AM) 18 br/min (02/10/24 7:38 AM) 18 br/min (02/10/24 6:38 AM) Temperature [96.8-100.4 DegF] 98.1 DegF (02/10/24 7:00 AM) 98.4 DegF (02/10/24 4:49 AM) 98.0 DegF (02/10/24 12:34 AM) Liters per Minute 6 L/min (02/09/24 2:45 PM) 6 L/min (02/09/24 2:30 PM) Mode of Delivery (Oxygen) Room air (02/10/24 7:00 AM) Room air (02/10/24 4:49 AM) Room air (02/10/24 12:34 AM) Blood pressure sites Arm, right (02/10/24 7:00 AM) Arm, right (02/10/24 4:49 AM) Arm, left (02/10/24 12:34 AM) Temperature Route Oral (02/10/24 7:00 AM) Oral (02/10/24 4:49 AM) Oral (02/10/24 12:34 AM) Dry Weight 70.1 kg (02/09/24 5:52 PM) 70.1 kg (02/09/24 11:21 AM) 69.9 kg (02/07/24 3:30 PM) Weight Obtained Via Standing scale (02/09/24 11:21 AM) Dry Weight Obtained Via Standing scale (02/09/24 11:21 AM) Social History Social History Type Response Smoking Status Never (less than 100 in lifetime) entered on: 02/06/22 Sex Hospital Progress note * Julia Medellin RN: PERFORM, SIGN, VERIFY Event Display: Progress Note Hospital Authored Date: Patient: ARACELY CRISTINA Age: 78 years Sex: Female : 1945 Associated Diagnoses: None Author: Julia Medellin RN Findings Narrative/Incidental IV access pulled DC instructions explained to the pt DC via WC * Stephanie Barker RN: PERFORM, SIGN, VERIFY Event Display: Progress Note Hospital Authored Date: Patient: ARACELY CRISTINA Age: 78 years Sex: Female : 1945 Associated Diagnoses: None Author: Stephanie Barker RN Findings Problem Related to Alteration in Endocrine : Alteration in Endocrine Function/new 02/10/2024 10:00 EDT Alteration in Endocrine Related to Parathyroid Goals & Outcomes, Endocrine Intake & Output will improve & return to baseline, Pt will receive/maintain adequate nutrition status, Pt will resume/maintain adequate cardiac output, Pt willresume/maintain adequate hemodynamic status, Pt will tolerate age appropriate diet prior to discharge, Pt will experience progressive wound healing Interventions, Endocrine Assess/monitor GI/ status, Assess skin turgor, temperature & capillary refill, Maintain IV access, Monitor pt's response to IV hydration, Teach Pt/caregiver activity instructions, Teach Pt/caregiver pain management strategies, Teach Pt/caregiver signs & symptoms of hypoglycemia, Teach Pt/caregiver signs & symptoms of hyperglycemia, Teach Pt/caregiver use of home glucose monitoring, Teach Pt/caregiver Medic Alert bracelet/Wallet Notification BH Goals/Interventions, Endocrine Yes Endocrine, Problem Start 02/09/2024 19:09 Reviewed Plan with, Endocrine Patient Patient Progression, Endocrine Pt progressing according to plan . Narrative/Incidental P: Alteration in Endocrine I: See above care plan E: Upon assessment patient reports 5/10 pain. Pain well managed with oxycodone, ice, and rest and repositioning. Jaw bra applied to neck every other hour as ordered. Patient is alert and oriented to person, place, time, and situation. Lung sounds clear on room air. Patient denies shortness of breath. Patient has dry nonproductive cough. PRN throat lozenges given for comfort. Patient not using incentive spirometer, contraindicated. No edema noted upon assessment. Circulation, movement, and sensation present in all four extremities. Patient wearing sequential compression boots. Abdomen is soft,round, and nontender. Bowel sounds present in all four quadrants. Patient passing gas and belching. Patient tolerating diet. Patient independently ambulating around the room and unit approximately 300 feet. Patient voiding clear yellow urine. Patient has anterior neck incision with steri strips. Minimal swelling noted at incision site. Bed locked and in lowest position. Call varghese in reach. . Discharge Information Case Management Discharge Plan : Case Management Discharge Plan Data 02/10/2024 10:47 EDT Discharge Level of Care at Discharge Home/Chcf/Foster Care * Shari Matthew: PERFORM Event Display: Progress Note Hospital Authored Date: [id number] Patient: ??ARACELY CRISTINA ? Age:??78 Years?Sex:??Female?:??1945?? Subjective Pain with coughing, sore throat. Able to swallow ok, but doesn't like the food. Voice a little raspy but was like that prior to surgery and doesn't think its any worse. Ambulating, voiding. No fevers, nausea or vomiting Physical Exam Vitals & Measurements T:??98.1?F?? HR:??88??(Peripheral)?? RR:??18?? BP:??140/70?? SpO2:??97%?? HT:??152.9??cm?? WT:??70.1??kg?? BMI:??29.98? Physical Exam: Constitutional:??In no acute distress, awake, and alert HEENT: Neck incision with minimal swelling, bruising. Soft. Steris c/d/i Respiratory: Non-labored breathing on room air Cardiovascular: Regular rate. No LE edema; SCDs in place. Warm, well-perfused Neurologic:??Alert and oriented x3.??No focal neurological deficits. Moves all extremities spontaneously Assessment/Plan 78F with multinodular goiter now s/p total thyroid (Douglas, 02/08). Recovering well overall. Postop PTH, Ical wnl. Incision looks good, no hematoma. ?? Plan: - Diet - Pain ctrl prn - Levothyroxine 112mcg daily - Home meds - Ambulate/SCDs - DC home? Discussed with Dr. Douglas MCCANN [id number] Intake and Output Intake and Output Results?? This visit (24 hour periods starting at 07:00 EDT)? 02/10/24 *?? 02/09/24?? 02/08/24?? Total Summary?Intake mL?? --?? ,905?? --?Output mL?? --?? 3,175?? --?Fluid Balance ?? --?? -1,270?? --?? Intake (2)?Lactated Ringers Injection 1,000 mL mL?? --?? 1,225?? --?Oral Fluids mL?? --?? 680?? --?Total?? --?? 1,905?? --?? Output (1)?Urine Voided mL?? --?? 3,175?? --?Total?? --?? 3,175?? --?? Counts (2)?Oral Fluids mL?? --?? 680?? --?Urine Voided mL?? --?? 3,175?? --? * This column has not completed the indicated time period.?? Labs Last 24 Hours CHEM GENERAL ? Event Name?? Event Result?? Date/Time?? Calcium, Ionized pH Corrected 1.17 mmol/L 02/10/24 04:57:00 ? Lab Results Test Name Test Result Date/Time PTH, Intact 48 pg/mL 02/09/2024 14:49 EDT * Douglas BOOGIE, May: PERFORM Event Display: Progress Note Hospital Authored Date: [id number] As above.?? Normal voice and parathyroid function.?Minimal per-Incisional bruising, no hematoma. Discharged home on levothyroxine??112 mcg daily. ??No need for outpatient calcium supplements unless becomes symptomatic. Follow-up in 2 to 3 weeks. Note * Stephanie Barker RN: PERFORM Event Display: Discharge/Transfer Note Hospital Authored Date: [id number] Nursing Discharge Note Entered On: 02/10/2024 10:47 EDT Performed On: 02/10/2024 10:47 EDT by Stephanie Barker RN Nursing Discharge Note 2 Discharge Time : 02/10/2024 11:06 EDT Julia Medellin RN - 02/10/2024 11:06 EDT Discharge Level of Care at Discharge : Home/Chcf/Foster Care Patient Left Unit Via : Wheelchair Patient Accompanied Off Unit with : Responsible adult DC Instructions Provided & Signed by Pt : Yes Patient Understands D/C Instructions : Yes Patient Instructions Discharge Signed : Yes Did Pt have Specialty Bed or Wound Vac : No Stephanie Barker RN - 02/10/2024 10:47 EDT * Julia Medellin RN: PERFORM Event Display: Patient Education/Instruction Authored Date: [id number] Inpatient Adult Discharge Instructions. [address] [address] Name: ARACELY CRISTINA : 1945?? Visit: 02/09/2024 11:04?? Current Date: 02/10/2024 10:54 ?? Account: [id number]?? Inpatient Adult Discharge Instructions We would like to thank you for allowing us to assist you with your healthcare needs. The following includes patient education materials and information regarding your injury/illness. Our entire staffstrives to provide an excellent experience for our patients and their families. PLEASE ENSURE YOU FOLLOW-UP PER THE INSTRUCTIONS BELOW! ?? YOUR OPINION IS IMPORTANT TO US! Please complete the survey you may receive by mail or email. Your feedback will be used to make improvements to the healthcare experiences of our patients and their families. Surveys are administered by [employer] ?? If further treatment with your primary care physician or another doctor is recommended, it is important for you to keep the appointment. Call your primary care physician or return to the Emergency Department immediately if your condition worsens, fails to improve, or new symptoms develop. If you need to find a doctor, you can call [facility] [employer] for a referral at [phone] or toll free at [phone]) or log in to [email or web address], Inc... ?? [facility], in keeping with [facility] guidance, no longer requires face masks for staff, patientsor visitors in most situations. Similiar to time spent indoors at other locations, there is the chance that you were exposed to repiratory viruses during your time with us (such as flu or COVID-19). If you develop symptoms concerning for a viral respiratory infection, please seek testing (and treatment if indicated) from your medical provider or home test kit. ?? You can view and manage your care through the patient portal or by using a health care mya of your choosing. [employer] is a website that allows you to securely view your medical information including your hospital discharge summary, office visit summaries, medications and follow-up visits. You can also request appointments, renew medications, and request access to your medical information using a health care mya of your choosing, or just ask a question. You can enroll at [email or web address] or register during your next office visit. You have been discharged from [facility], Patient Care Unit: SW6??. If you have any questions regarding these instructions, including results of studies pending, afteryou leave, please call us and we will be happy to assist you 24/05. [facility] Your Care Team Attending Physician May Cole MD?? Consulting Providers May Cole MD?? Discharging Providers Shari Matthew Your Diagnosis Goiter Tests Performed Below is a partial list of the tests performed during your hospitalization. You may have had other tests and procedures not included in this list. Please discuss all test results with your provider. HOLD GEL TUBE HOLD LAVENDER TUBE Ionized Calcium PTH Intact Pathology Tissue Request ()?? Primary Care Provider Dannie Palacio MD? Advance Directive Health Care Proxy on File Yes - Health Care Proxy Caregiver Relationship: Daughter Name of Caregiver: mee patricia Discharge Vitals Temperature: 98.1 DegF Height: 152.9 cm Pulse Rate: 88 bpm Weight: 70.1 kg Respiratory Rate: 18 br/min Body Mass Index:??29.98 kg/m2??High Systolic Blood Pressure:??140 mm Hg??High Body surface area: 1.73 Diastolic Blood Pressure: 70 mm Hg ?? Oxygen Saturation: 97 % ?? Studies Pending All studies ordered during this hospital stay have been completed unless listed below. Please discuss all pending results with your provider listed above in these instructions. ?? Pathology Tissue Request ()?? What to do next Instructions From Your Doctor Discharge Instructions?If you develop fever, chills, increased pain, nausea, vomiting, bleeding, or increased redness or pus around the wound please call the surgery office at . A narcotic was prescribed to help reduce your pain. Take only as needed for your pain; you may choose to fill the prescription in a lesser amount. When taking opioids, there is an increase chance of abuse and/or overdose. Other side effects/complications include nausea, vomiting, difficulty breathing, sedation and constipation. A stool softener was also prescribed to help prevent constipation. Please take medicationsas prescribed and do not drive while on narcotic medications. Refer to handout for more information. ?You may continue to take Extra Strength Tylenol 1000mg every??6-8 hours for pain control if needed ? Please begin levothyroxine 112mcg daily. Please take first thing in the morning without other medications and on an empty??stomach.??You will need to follow up with health science instructor??in 2-3 months forfurther management and dose adjustments. ?? If you develop any symptoms, such as numbness or tingling in your fingers or around your mouth, please begin taking Citracal 2 tablets??two times a day and call the office? Please begin levothyroxine 80mcg daily. You will need to follow up with health science instructor??in 2-3 months for further management and dose adjustments. ?Incision??is closed with absorbable sutures and overlying Steri- strips. Please remove Steri-strip in one week.?If you have any questions, please call the surgery office at . ?Please call your Primary Care Provider within 1 week for post hospital follow up and review of your medications. ?Activity Instructions ?-Increase activity as tolerated ?-No tub baths until incision(s) has/have healed ?-May shower??tomorrow ?-No driving until off narcotics and cleared by Surgery?Incision??is closed with absorbable sutures and overlying Steri- strips. Please remove Steri-strip in one week.?If you have any questions, please call the surgery office at ?Activity Instructions ?-Increase activity as tolerated ?-No tub baths until incision(s) has/have healed ?-May shower??tomorrow ?-No driving until off narcotics and cleared by Surgery? Orders? 02/10/24 10:35:00 EDT?? Prescriptions??, ??02/10/24 10:35:00 EDT?? Scheduled Follow-Up Appointments 2023 1:00 PM EDT ?? With: Ricardo Gaitan Where: [address] [place], [place] [id number]- Status: Pending You Need to Schedule the Following Appointments Follow Up with??Ricardo Pearson When:??02/24/2024 01:00 PM EDT Why: Follow up after your recent surgery Where: [address] [place] [address] Drive [address] [place] [address]- Business (1) Discharge Medications ARACELY CRISTINA :1945 Visit Date:02/09/2024 Medications: Please continue your medications until treatment is completed or stopped by your provider. Medications not listed below should be discontinued. Discuss any questions related to medications with your provider. What How Much When Instructions Next Dose New Docusate (Colace sodium 100 mg oral capsule) 1 capsule Oral Twice a day as needed for for constipation Pickup at [facility]/pharmacy #[id number] as needed New Levothyroxine (levothyroxine 0.112 mg oral tablet) 1 tab(s) Oral Daily Duration: 30 Days Refills: 2 Pickup at [facility]/pharmacy #0957 7am 02/11/24 New Oxycodone (oxyCODONE 5 mg oral tablet) 5 Milligram Oral Every 6 hours as needed for Pain , Moderate Duration: 3 Days Pickup at [facility]/pharmacy #0957 as needed Unchanged Acetaminophen/ Butalbital/ Caffeine (Fioricet Tablet) Oral Every 4 hours as directed Unchanged BuPROpion (Wellbutrin XL 300 mg/ 24 hours oral tablet, extended release) 300 Milligram Oral Every 24 hours 9am 02/11/24 Unchanged Calcium And Vitamin D Combination (Calcium 600 +D oral tablet) 2 tab(s) Oral Daily 9am 02/11/24 Unchanged Fluoxetine (PROzac 10 mg oral capsule) 1 capsule Oral Daily 9a02/11/24 Unchanged Lorazepam (LORazepam 1 mg oral tablet) 1 tab(s) Oral Twice a day as needed for as needed for anxiety as needed Unchanged Metoprolol (Toprol XL 50 mg oral tablet, extended release) 100 Milligram Oral Daily 9a02/11/24 Unchanged Multivitamin 1 tab(s) Oral Daily 02/11/24 Unchanged Omeprazole (omeprazole 20 mg oral delayed release tablet) 1 tab(s) Oral Daily as needed for Dyspepsia as needed Unchanged Simvastatin (simvastatin 20 mg oral tablet) 1 tab(s) Oral Daily at Bedtime 8pm 02/10/24 Unchanged Trazodone (traZODone 100 mg oral tablet) 1 tab(s) Oral Daily at Bedtime 8pm 02/10/24 Pharmacy Information [facility]/pharmacy #[id number]: [address] [place] [address] [phone] Prescription Given During Visit Docusate (Colace sodium 100 mg oral capsule) - 1 capsule = 100 mg, By Mouth, 2 times a day, # 20 capsule, 0 Refills, [facility] [place] [address] [phone]?? Levothyroxine (levothyroxine 0.112 mg oral tablet) - 1 tablet = 112 mcg, By Mouth, Daily, # 30 tablet, 2 Refills, [id number], [address] [place] [phone]?? Oxycodone (oxyCODONE 5 mg oral tablet) - 5 mg, By Mouth, Every 6 hours, # 12 tablet, 0 Refills, [id number], [address] [place] [phone]?? Laboratory Results Below is a partial list of the most recent Laboratory test results done prior to this discharge. You may have had other tests and procedures not included in this list. Please discuss all test resultswith your provider. HOLD GEL TUBE (02/10/2024) ???Hold Gel Top - SPECIMEN DISCARDED AFTER 1 WEEK HOLD LAVENDER TUBE (02/10/2024) ???Hold Lavender Top - SPECIMEN DISCARDED AFTER 24 HOURS. Ionized Calcium (02/10/2024) ???Calcium, Ionized pH Corrected - 1.17 mmol/L PTH Intact (02/09/2024) ???PTH, Intact - 48 pg/mL Allergies (NKA means No Known Allergies) Demerol HCl??(Rash/Headache) Problems Active Problems??(13) Bursitis of hip?? CKD (chronic kidney disease)?? Depression with anxiety?? Dyslipidemia?? GERD (gastroesophageal reflux disease)?? Hiatal hernia?? Hypertension?? Impaired glucose metabolism?? Migraines?? Multinodular goiter (nontoxic)?? Osteoarthritis?? Osteoporosis?? RBBB?? Education Materials Below is the list of Educational Leaflet Providered with your Discharge Instructions. Valuables and Belongings I fully understand and agree that [facility] accepts no responsibility for all my personal property including clothing, toilet articles, radios, jewelry, dentures, hearing aids, rings, money, or any other property that is in my possession or is brought to me after admission. I understand certain valuables may be placed in a hospital safe for a short period of time. I understand that the hospital is not liable for loss or damage due to accident, fire, or other natural occurrence while said property is in the safe. I accept full responsibility for any personal property that I keep with me, and will not hold the hospital responsible in case of loss or disappearance. I acknowledge that i have been encouraged to send valuables and belongings home. ?? Review of Valuable and Belonging List: With patient Disposition of Belongings: Sent home with patient/family Possessions released to: Patient Date for Pt to Sign Valuables/Belongings: 02/10/24 10:47:00 ?? Other Discharge Information ? Case Management Discharge Plan?? Discharge Plan?? Discharge Level of Care at Discharge: Home/Chcf/Foster Care ?? Pulmonary Rehab Status?? Pulmonary Rehab Discharge Status?? Respiratory Rate: 18 br/min ? Common Emergency Awareness Tips IS IT A STROKE? Act FAST and Check for these signs: FACE Does the face look uneven? ARM Does one arm drift down? SPEECH Does their speech sound strange? TIME Call at any sign of stroke ?? Heart Attack Signs Chest discomfort: Most heart attacks involve discomfort in the center of the chest and lasts more than a few minutes, or goes away and comes back. It can feel like uncomfortable pressure, squeezing, fullness or pain. Discomfort in upper body: Symptoms can include pain or discomfort in one or both arms, back, neck, jaw or stomach. Shortness of breath: With or without discomfort. Other signs: Breaking out in a cold sweat, nausea, or lightheaded. Remember, MINUTES DO MATTER. If you experience any of these heart attack warning signs, call to get immediate medical attention! ?? Smoking can increase your chances of developing chronic health problems and can cause harmful effects to other family members in your house. If you smoke, you are strongly encouraged to quit. Please call [facility] [employer] at [phone] or [phone] ([phone]) or log in to [email or web address] for referrals to smoking cessation programs. ?? 314 Suicide & Crisis Lifeline is available 24/05 if you or someone you know needs to find a reason to keep living. By calling 930 you'll be connected to a skilled, trained counselor at a crisis center in your area. INPATIENT DISCHARGE INSTRUCTIONS SIGNATURE PAGE ARACELY CRISTINA Location:[facility] Registration Date and Time:02/09/2024 11:04 EDT Primary Care Physician: Hakeem BOOGIE, Dannie, Attending Physician: Douglas BOOGIE, May, I ARACELY CRISTINA, have received the above patient education materials/instructions and have verbalized understanding. If ambulance or transport services are being used I further acknowledge being given a choice of service. ?? If you need to contact me, please call me at this number: . Patient/Courtesy Clerk Name: Patient/Courtesy Clerk Signature: Relationship to Patient: Witness Name/Signature: Date: * Minh Toro MD: PERFORM, SIGN, VERIFY Event Display: Patient Education Handout Authored Date: [id number] Patient Care team information Care Team Personnel Name: Kelle Parsons RN Position: ALISHA RN Member Role: Primary Care Nurse Name: Dannie Palacio MD Position: Reference Physician Member Role: PCP Address: Address: [address] [place] [address] Care Team Related Persons Name: MEE PATRICIA Address: home [address] [place] [address]
--- OUTSIDE RECORDS SUMMARY | 2024-07-26 12:54 | XMS_ITS | Continuity of Care Document ---
Author Organization [facility] Address [address] [place] [address]- Care Team Providers Care Convention Planner Name Role Phone Hakeem BOOGIE, Dannie Primary Care Physician [phone] [place] [facility] [place]/23 [facility] [address] [place] [id number] Allergies, Adverse Reactions, Alerts Substance [...] Reference Physician Member Role: PCP Address: Address: [address] [place] [address]- Care Team Related Persons Name: MEE PATRICIA Address: home [address] [place] [address]
--- OUTSIDE RECORDS SUMMARY | 2024-07-26 12:54 | XMS_ITS | Continuity of Care Document ---
Author Organization [facility] Address [address] [place] [address]- Care Team Providers Care Robotic Machine Operator Name Role Phone Dannie Palacio MD Primary Care Physician [place] [facility] [place] 07/25/20 - 08/24/20 [facility] [address] [place] [address]- [facility] Allergies, Adverse Reactions, Alerts Substance Reaction Severity [...]
--- OUTSIDE RECORDS SUMMARY | 2024-07-26 12:54 | XMS_ITS | Continuity of Care Document ---
Author Organization [facility] Address [address] [place] [address]- Care Team Providers Care Technician Trainee Name Role Phone Hakeem BOOGIE, Dannie Primary Care Physician [place] [facility] [place] 03/31/23 - 04/30/23 [facility] [address] [place] [address] Allergies, Adverse [...] Physician Member Role: PCP Address: Address: [address] [place] [address]- Care Team Related Persons Name: MEE PATRICIA Address: home [address] [place] [address]
--- OUTSIDE RECORDS SUMMARY | 2024-07-26 12:54 | XMS_ITS | Continuity of Care Document ---
Author Organization [facility] Address [address] [place] [address]- Care Team Providers Care Ground Layer Name Role Phone Hakeem BOOGIE, Dannie Primary Care Physician [phone] Encounter [facility] [place] Date(s): 09/19/21 - 10/19/21 [facility] [address] [place] [address] Allergies, Adverse Reactions, Alerts Substance Reaction [...]
--- OUTSIDE RECORDS SUMMARY | 2024-07-26 12:54 | XMS_ITS | Continuity of Care Document ---
Author Organization [facility] Address [address] [place] [address] [address] [place] [address]- Care Team Providers Care Hotel Front Desk Agent Name Role Phone Dannie Palacio MD Primary Care Physician Encounter [facility] [place] Date(s): 11/25/23 - 12/25/23 [facility] [address] [place], [place] [address] Allergies, Adverse Reactions, Alerts Substance Reaction [...] Physician Member Role: PCP Address: Address: [address] [place] [address]- Care Team Related Persons Name: MEE PATRICIA Address: home [address] [place] [address]
--- OUTSIDE RECORDS SUMMARY | 2024-07-26 12:54 | XMS_ITS | Continuity of Care Document ---
Author Organization [facility] ter Address [address] [place] [address]- Care Team Providers Care Food Expeditor Name Role Phone Dannie Palacio MD Primary Care Physician Encounter [facility] [place] Date(s): 02/06/22 - 02/06/[address] [address]- Encounter Diagnosis Right lower quadrant pain(Discharge Diagnosis) - 02/06/22 Discharge Disposition: A-D/C Home Attending Physician: Tatianna Kwan DO Admitting Physician: Tatianna Kwan DO Referring Physician: Not on Staff, Referring MD Allergies, Adverse Reactions, Alerts Substance Reaction [...] EDT, Tablet Start Date: 03/24/19 Status: Ordered MorPHINE Inj 4 mg, Injection, IV Push Slowly, Once, STAT, 02/06/22 7:17:00 EDT, Stop date 02/06/22 7:17:00 EDT Start Date: 02/06/22 Stop Date: 02/06/22 Status: Completed Multivitamin 1, tablet, By Mouth, Daily, 01/24/09 23:07:09, Constant Indicator Start Date: 01/24/09 Stop Date: 02/23/09 Status: Ordered omeprazole 20 mg oral delayed release tablet 1 tablet = 20 mg, By Mouth, Daily, PRN Dyspepsia, # 120 tablet, 0 Refills, Maintenance, 07/15/20 13:10:00 EDT, EC Tablet Start Date: 07/15/20 Status: Ordered oxyCODONE 5 mg oral capsule 1 capsule = 5 mg, By Mouth, Every 6 hours, PRN for pain, for 3 days, # 7 capsule, 0 Refills, Acute 02/09/22 12:23:00 EDT, 02/06/22 12:23:00 EDT, Capsule, [facility] # [id number], Partial fill upon patient request if the prescription is for a schedule II... Start Date: 02/06/22 Stop Date: 02/09/22 Status: Ordered simvastatin 20 mg oral tablet [...] Stop Date: 02/22/09 Status: Ordered Problem List Diagnosis Diagnosis Type Effective Dates Health Status Cl inical Service Informant Right lower quadrant pain Discharge Diagnosis 02/06/22 Results Radiology Reports * Exam Date Time Procedure Performing Provider Status 02/06/22 7:58 AM Chest Portable Sharda Foreman; Auth (Ve rified) Notes: (Chest Portable) Reason For Exam: Shortness of Breath RESULT: Chest Portable Chest Portable Hx of Present Illness: pt states that yesterday at noon started with right lower quad pain, and nowit is more in the right flank and in the right lower quad, denies nausea vomiting, eating and drinking well; Reason: Shortness of Breath; Clinical Question(s): CHF COMPARISON: None. FINDINGS: No acute cardiopulmonary process. IMPRESSION: No acute abnormality. Normal exam WSN: [id number] Ordering Physician: Damion Mayorga Dictated By: Han Faust MD Dictated Date/Time: 02/06/22 7:59 am Reviewed By: Han Faust MD Signed By: Han Faust MD Signed Date/Time: 02/06/22 7:59 am Transcribed By: BENNIE Transcribed Date/Time: 02/06/22 7:59 am Vital Signs Most recent to oldest [Reference Range]: 1 2 3 Height 154 cm (02/06/22 7:04 AM) 154 cm (02/06/22 5:22 AM) Weight 70 kg (02/06/22 7:04 AM) 70 kg (02/06/22 5:22 AM) Oxygen Saturation [94-100 %] 99 % (02/06/22 11:56 AM) 100 % (02/06/22 10:00 AM) 99 % (02/06/22 7:04 AM) Pulse Rate [55-90 bpm] 70 bpm (02/06/22 11:56 AM) 76 bpm (02/06/22 10:00 AM) 72 bpm (02/06/22 7:04 AM) Body Mass Index [18.5-24.99] 29.52 *H* (02/06/22 7:04 AM) Blood Pressure [90-138/55-84 mm Hg] 136/70mm Hg (02/06/22 11:56 AM) 148/68mm Hg *H* (02/06/22 10:00 AM) 142/66mm Hg *H* (02/06/22 7:04 AM) Respiratory Rate [16-30 br/min] 18 br/min (02/06/22 11:56 AM) 18 br/min (02/06/22 10:00 AM) 18 br/min (02/06/22 8:32 AM) Temperature [96.8-100.4 DegF] 97.6 DegF (02/06/22 7:04 AM) 97.8 DegF (02/06/22 5:22 AM) Mode of Delivery (Oxygen) Room air (02/06/22 11:56 AM) Room air (02/06/22 10:00 AM) Room air (02/06/22 7:04 AM) Blood pressure sites Arm, right (02/06/22 11:56 AM) Arm, right (02/06/22 10:00 AM) Arm, right (02/06/22 7:04 AM) Temperature Route Oral (02/06/22 7:04 AM) Oral (02/06/22 5:22 AM) Dry Weight 70 kg (02/06/22 7:04 AM) 70 kg (02/06/22 5:22 AM) Social History Social History Type Response Smoking Status Never (less than 100 in lifetime) entered on: 02/06/22 Sex
--- OUTSIDE RECORDS SUMMARY | 2024-07-26 12:54 | XMS_ITS | Continuity of Care Document ---
Author Organization [facility] ter Address [address] [place] [address]- Care Team Providers Care Protective Signal Operations Supervisor Name Role Phone Dannie Palacio MD Primary Care Physician [phone] Encounter [facility] [place] Date(s): 10/19/19 - 12/16/[address] [address]- [facility] Attending Physician: Kelley Lind MD Admitting Physician: Kelley Lind MD Referring Physician: Kelley Lind MD Allergies, Adverse Reactions, Alerts Substance Reaction [...] Date: 01/24/09 Stop Date: 02/23/09 Status: Ordered simvastatin 20 mg oral tablet [...]
--- OUTSIDE RECORDS SUMMARY | 2024-07-26 12:54 | XMS_ITS | Continuity of Care Document ---
Author Organization [facility] Address [address] [place] [address] [address] [place] [address]- Care Team Providers Care Inspector Canvas Products Name Role Phone Dannie Palacio MD Primary Care Physician Encounter [facility] [place] Date(s): 03/03/24 - 04/02/[address] [place], [place] [address] Allergies, Adverse Reactions, Alerts Substance Reaction [...] 02/09/24 14:29:00 EDT, Route to Pharmacy Electronically, [facility]/pharmacy #[id number], Partial fill upon patient request if the prescriptio... Start Date: 02/09/24 Status: Ordered Fioricet Tablet By Mouth, Every 4 hours, 0 Refills, Maintenance, 03/24/19 10:42:17 EDT Start Date: 03/24/19 Status: Ordered levothyroxine 0.1 mg oral tablet 1 tablet = 100 mcg, By Mouth, Daily, # 30 tablet, 11 Refills, Maintenance, 03/09/24 15:52:00 EDT, [facility]/pharmacy #[id number], Partial fill upon patient request [...] Reference Physician Member Role: PCP Address: Address: [address] [place] [address]- Care Team Related Persons Name: EARL PATRICIAA Address: home [address] [place] [address]
--- OUTSIDE RECORDS SUMMARY | 2024-07-26 12:54 | XMS_ITS | Continuity of Care Document ---
Author Organization [facility] Address [address] [place] [address]- Care Team Providers Care Mandate Retail Service Merchandiser Name Role Phone Dannie Palacio MD Primary Care Physician Encounter [facility] [place] Date(s): 01/26/24 - 02/25/24 [facility] [address] [place], [place] [address] Attending Physician: Claire Kennedy Admitting Physician: AdmtrClaire Referring Physician: Admtr, ArClif Allergies, Adverse Reactions, Alerts Substance Reaction [...] 02/09/24 14:29:00 EDT, Route to Pharmacy Electronically, [facility]/pharmacy #[id number], Partial fill upon patient request if the prescriptio... Start Date: 02/09/24 Status: Ordered Fioricet Tablet By Mouth, Every 4 hours, 0 Refills, Maintenance, 03/24/19 10:42:17 EDT Start Date: 03/24/19 Status: Ordered levothyroxine 0.112 mg oral tablet 1 tablet = 112 mcg, By Mouth, Daily, # 30 tablet, 2 Refills, Maintenance, 02/09/24 14:29:00 EDT, Tablet, [facility]/pharmacy #[id number], Partial fill upon patient [...] Reference Physician Member Role: PCP Address: Address: [address] [place] [address]- Care Team Related Persons Name: MEE PATRICIA Address: home [address] [place] [address]
--- OUTSIDE RECORDS SUMMARY | 2024-07-26 12:54 | XMS_ITS | Continuity of Care Document ---
Author Organization [facility] Address [address] [place] [address] [address] [place] [address]- Care Team Providers Care Cell Tower Climber Name Role Phone Dannie Palacio MD Primary Care Physician Encounter [facility] [place] Date(s): 05/25/24 - 06/24/[address] [place], [place] [address] Allergies, Adverse Reactions, Alerts Substance [...] 02/09/24 14:29:00 EDT, Route to Pharmacy Electronically, [facility]/pharmacy #[id number], Partial fill upon patient request if the prescriptio... Start Date: 02/09/24 Status: Ordered Fioricet Tablet By Mouth, Every 4 hours, 0 Refills, Maintenance, 03/24/19 10:42:17 EDT Start Date: 03/24/19 Status: Ordered levothyroxine 0.1 mg oral tablet See Instructions, 1 tablet By Mouth 6xweekly. Take 0.5 tabs on day 7., # 30 each, 11 Refills, Maintenance, 03/09/24 15:52:00 EDT, [facility]/pharmacy #[id number], Partial fill upon patient request if [...] Reference Physician Member Role: PCP Address: Address: [address] [place] [address]- Care Team Related Persons Name: MEE PATRICIA Address: home [address] [place] [address]
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
== END 2024-07-26 13:51 | disposition home or self-care (01) ==
LOC: HO.HOP 12:51
PROVIDERS: PCP Pediatrics; Visit Provider Psychiatry & Neurology Psychiatry
DX: F33.42 Major depressive disorder, recurrent, in full remission (principal)
CPT/HCPCS: 90833; 99213

== ENCOUNTER → 2024-07-26 12:51 | Outpatient (BNVA) | payer MEDICARE, SELFPAY | PROVIDERS: PCP Pediatrics; Visit Provider Psychiatry & Neurology Psychiatry | DX: F33.42 Major depressive disorder, recurrent, in full remission (principal) | CPT/HCPCS: 99212 ==

== ENCOUNTER 2024-10-17 11:58 | Outpatient (AMB) | payer MEDICARE, SELFPAY ==
--- OUTSIDE RECORDS SUMMARY | 2024-10-17 12:00 | XMS_ITS | Data Portability ---
Author Organization [place] - [facility], Allergy Address [address] [address] Assessment No assessment recorded. Plan of Treatment Reminders Order Date Submit Date Provider Last Modified By Organization Details Last Modified Time Details Appointments None record ed. Lab None record ed. Referral None record ed. Procedures None record ed. Surgeries None record ed. Imaging None record ed. Medication Orders None record ed. Patient TargetsNo targets recorded. Patient InstructionsNo instructions recorded. Reason for Referral None Reported. Results Created Date Observation Date Name Description Value Unit Range Abnormal Flag Note LastModifiedBy Organization Detail LastModifiedTime 06/21/20 24 11/11/2020 imagi ng/di agnos tic resul t No observ ation record ed. [email or web address] Not Available 20:45:05 Result Notes None recorded. Problems Name Problem SNOMED Code Status Onset Date Resolution Date Notes Provider Name and Address Organization Details Recorded Time Dizziness and giddiness 838381755 Active 2020 Dizziness and giddiness ; Note: Date Diagnosed : 11/11/2020 11:47 AM (R42) Not Available [facility] 4 02:56:40 Dysphonia 07297011 Active 2016 Hoarsenes s; Note: Date Diagnosed : 09/07/2017 10:26 AM (R49.0) Not Available [facility] 4 02:56:38 Allergic rhinitis 70306754 Active 2018 Perennial allergic rhinitis; Note: Date Diagnosed : 03/30/2019 10:59 AM (J30.89) Not Available [facility] 4 02:56:39 Gastroeso phageal reflux disease 602321765 Active 2014 Laryngoph aryngeal reflux; Note: Date Diagnosed : 07/11/2015 1:20 PM (530.81) Not Available [facility] 4 02:56:40 Gastroeso phageal reflux disease without esophagit is 654235189 Active 2018 Gastro-es ophageal reflux disease without esophagit is; Note: Date Diagnosed : 03/30/2019 10:56 AM (K21.9) Not Available [facility] 4 02:56:41 Difficult y speaking Active 2014 Muscle tension dysphonia ; Note: Date Diagnosed : 07/11/2015 1:20 PM (784.49) Not Available [facility] 4 02:56:37 Chronic hoarsenes s 44317734529 05 Active 2023 LUIS MANUEL SHELLEY MD [address] [place] [address] [place], [address] , [place] - [facility] 13:35:09 Chronic cough 67085503 Active 2023 LUIS MANUEL SHELLEY MD [address] [place] [address], [place], [address] , [place] - [facility] 4 13:44:56 Problem Notes None recorded. Procedures Surgical History Date Name Laterality Status Provider Name and Address Organization Details Recorded Time 05/25/2024 FFL_RE completed LUIS MANUEL SHELLEY MD [address] [place] [address], [place], [address], [facility] 05/25/2024 13:35:22 Imaging Results Imaging Date Name Status LastModified by Organiz ation Details LastModified Time 11/11/2020 imaging/diag nostic result completed [email or web address] Information not available 06/21/2024 20:45:05 Procedure Notes None recorded. Medical Equipment None Reported. Allergies Allergen ID Allergen Name Allergen Category Reaction Reaction Severity Criticality Documentation Date Start Date Code Code System Note Provider Name and Address Organization Details Recorded Time 480135 meperidin e hydrochlo ride medicatio n other Not available Not available 03/14/2024 28900 5 RxNorm React ion: unkno wn, unspe cifie d;; Not Available [facility] 4 01:14:58 Medications Name Sig Start Date Stop Date Status Note LastModified by Organization Details LastModified Time prednison e 10 mg tablet 11/11 completed Medicati on ID: [id number] Du ration Value: 12 Brand Name: predniso ne Send Method: E-Prescr ibed Sub s Allowed: subs OK Speci al Instruct ion: TAKE 4 TABS DAILY FOR 3 DAYS THEN 3 TABS FOR 3 DAYS THEN 2 TABS FOR 3 DAYS THEN 1 TAB FOR 3 DAYS Med icationG enericNa me: predniso ne Not Available Not Available Not Available azithromy rony 250 mg tablet 2014 active Medicati on ID: [id number] Du ration Value: 5 Brand Name: azithsailaja ycin Sen d Method: E-Prescr ibed Sub s Allowed: subs OK Speci al Instruct ion: TAKE 2 TABLETS BY MOUTH TODAY, THEN TAKE 1 TABLET DAILY FOR 4 DAYS Med icationG enericNa me: azithrom ycin Not Available Not Available Not Available fluconazo le 150 mg tablet PLEASE SEE ATTACHED FOR DETAILED DIRECTIO NS active Not Available Not Available No t Available metoprolo l succinate ER 50 mg tablet,ex tended release 24 hr 11/11 completed Medicati on ID: [id number] Du ration Value: 90 Brand Name: metoprol ol succinat e Send Method: E-Prescr ibed Sub s Allowed: subs OK Medic ationGen ericName : metoprol ol succinat e Not Available Not Available Not Available metoprolo l succinate ER 100 mg tablet,ex tended release 24 hr active Not Available Not Available Not Available moxifloxa rony 400 mg tablet TAKE 1 TABLET BY MOUTH EVERY DAY FOR 7 DAYS active Not Available Not Available No t Available venlafaxi ne ER 150 mg capsule,e xtended release 24 hr 11/11 completed Medicati on ID: [id number] Du ration Value: 90 Brand Name: venlafax ine Send Method: E-Prescr ibed Sub s Allowed: subs OK Medic ationGen ericName : venlafax ine Not Available Not Available Not Available acetamino phen 300 mg-codein e 30 mg tablet 2014 active Medicati on ID: [id number] Du ration Value: 10 Brand Name: acetamin ophen-co deine Se nd Method: E-Prescr ibed Sub s Allowed: subs OK Speci al Instruct ion: TAKE 1 TABLET BY MOUTH 3 TIMES A DAY NEEDED FOR COUGH Me dication GenericN vivi: acetamin ophen-co deine Not Available Not Available Not Available doxepin 10 mg capsule active Not Available Not Available Not Available omeprazol e 40 mg capsule,d elayed release 1 capsule by mouth 2014 active Medicati on ID: [id number] Du ration Value: 30 Prescri bed By Name: Jazmín ram MD Brand Name: omeprazo le Send Method: E-Prescr ibed Sub s Allowed: subs OK Medic ationGen ericName : omeprazo le Not Available Not Available Not Available butalbita l-acetami nophen-ca ffeine 50 mg-325 mg-40 mg tablet active Not Available Not Available Not Available levothyro xine 100 mcg tablet TAKE 1 TABLET BY MOUTH EVERY DAY active Not Available Not Available No t Available trazodone 100 mg tablet active Not Available Not Available Not Available benzonata te 100 mg capsule TAKE 1 CAPSULE BY MOUTH 3 TIMES A DAY FOR 14 DAYS NEEDED FOR COUGH active Not Available Not Available No t Available simvastat in 20 mg tablet active Not Available Not Available Not Available fluoxetin e 10 mg capsule active Not Available Not Available Not Available omeprazol e 20 mg capsule,d elayed release active Not Available Not Available Not Available lorazepam 1 mg tablet TAKE 1/2 TABLET (0.5MG) ORALLY 2 TIMES A DAY NEEDED FOR ANXIETY FOR 30 DAYS active Not Available Not Available No t Available methylpre dnisolone 4 mg tablets in a dose pack 11/11 completed Medicati on ID: [id number] Du ration Value: 6 Brand Name: methylpr ednisolo ne Send Method: E-Prescr ibed Sub s Allowed: subs OK Speci al Instruct ion: TAKE 6 TABLETS ON DAY 1 DIRECTED ON PACKAGE AND DECREASE BY 1 TAB E ACH DAY FOR A TOTAL OF 6 DAYS Med icationG enericNa me: methylpr ednisolo ne Not Available Not Available Not Available levothyro xine 112 mcg tablet TAKE 1 TABLET BY MOUTH EVERY DAY active Not Available Not Available No t Available oxycodone 5 mg tablet TAKE 1 TABLET BY MOUTH EVERY 6 HOURS FOR 3 DAYS NEEDED FOR PAIN active Not Available Not Available No t Available bupropion HCl XL 300 mg 24 hr tablet, extended release active Not Available Not Available Not Available bupropion HCl XL 150 mg 24 hr tablet, extended release 2014 active Medicati on ID: [id number] Du ration Value: 90 Brand Name: bupropio n HCl Send Method: E-Prescr ibed Sub s Allowed: subs OK Medic ationGen ericName : bupropio n HCl Not Available Not Available Not Available omeprazol e 20 mg tablet,de layed release by mouth 2020 active Medicati on ID: [id number] P rescribe d By Name: Sukumar Lundberg MD Brand Name: omeprazo le Send Method: E-Prescr ibed Sub s Allowed: subs OK Speci al Instruct ion: Take 1 tablet by mouth every day before breakfas t Medica tionGene ricName: omeprazo le Not Available Not Available Not Available Vitals Date Recorded Body height Body mass index (BMI) Body weight Provider Name and Address Organization Details Last Updated DateTime 05/25/2024 152.4 cm 28.9 kg/m2 24795.67 g Charanjit Gardner [place] - [facility] 05/25/2024 12:55:27 Social History None recorded. Functional Status None recorded. Mental Status None recorded. Family History Nothing Reported. Medical History No medical history recorded. Gynecological HistoryNo gynecological history recorded. Obstetrics History GPAL:G 0 P 0 0 0 0 Past Encounters Encounter ID Performer Location Encounter Start Date Encounter Closed Date Diagnosis/Indication Diagnosis SNOMED-CT Code Diagnosis ICD10 Code 9007 LUIS MANUEL SHELLEY MD [facility] [address] [address] 05/25/2024 11:47:16 05/25/2024 13:41:45 Chronic hoarseness 6707497089 105 R49.0 Gastroesop hageal reflux disease without esophagitis 059260260 K21.9 Chronic cough 02324206 R 05.3 Health Concerns Section Related Observation LastModified by Organization Detai ls LastModified Time None Recorded Concern Status LastModified by Organization Details LastModified Time None Recorded Advance Directives Directive None Recorded Payers Encounter Date Sequence Insurance Name Policy Number Policy Nieto Covered Member ID Nieto Member ID Guarantor Name 05/25/2024 1 [employer] - MEDICARE ADVANTAGE PLAN (MEDICARE REPLACEMENT HMO) [id number] 1 Amy Alcantar [id number] Amy Alcantar Notes Date Note Type Note Provider Name and Address Organization Details Recorded Time 05/25/2024 text/html She had a total thyroidectomy in January with Dr. Cole. Her voice was absent for a time after surgery. Her voice has recovered. No dysphagia. No trouble breathing. Has occasional laryngitis. Has GERD and takes omeprazole and clears her throat often. LUIS MANUEL SHELLEY MD [address] [place] [address], [id number] [place] - [facility] 05/25/2024 13:46:19 OBGyn Episode No OBEpisode recorded.
--- OUTSIDE RECORDS SUMMARY | 2024-10-17 12:01 | XMS_ITS | Continuity of Care Document ---
Author Organization [facility], Main Office Address [address] [facility] [address] [place] [address] Care Team Providers Care Farmer General Name Role Phone DANNIE MOORE Primary Care Provider BETHEL SAMUEL Trestle Builder WYATT GAYLE Greeter KONRAD HADDAD Inspector Rubber Stamp Die MELE FREGOSO Psychiatrist SANDRA AWAD Hand Surgeon JOSHUA ROBERTS Orthopedic Surgeon [phone] RIZWAN DANIELLE Buttonhole Tacker YUMIKO RAYMOND Stained Glass Artist GAMALIEL MEIER General Surgeon TRISTEN QUEZADA Glass Sander Belt Assessment No assessment recorded. Plan of Treatment Reminders Order Date Submit Date Provider Last Modified By Organization Details Last Modified Time Details Appointments FOLLOW UP 30MIN 2024 01:00P Lore Moore MD Not available Not available Not available Lab None recorded. Referral None recorded. Procedures None recorded. Surgeries None recorded. Imaging None recorded. Medication Orders erythromy rony 5 mg/gram (0.5 %) eye ointment 2023 024 roddy [facility] [id number], [address] [facility], [place], [address], 09/12/2024 10:38:30 Patient TargetsNo targets recorded. Patient InstructionsNo instructions recorded. Reason for Referral None Reported. Problems Name Problem SNOMED Code Status Onset Date Resolution Date Notes Provider Name and Address Organization Details Recorded Time Dysthymi a [id number] Completed 201306/26/2016 RECORDED 03/02/20 14 1:13PM BY PETTY NESS MA, OFFICE VISIT Dannie Moore MD [address], [place], [address] , [facility] 6 10:14:24 Tobacco user [id number] Completed 201205/15/2014 RECORDED 03/06/20 13 9:53AM BY PETTY NESS MA, ANNOTATI ON/ADDEN DUM Dannie Moore MD [address], [place], [address] , [facility] 6 10:14:24 History of clinical finding in subject [id number] Completed 201206/12/2015 RECORDED 03/06/20 13 9:53AM BY PETTY NESS MA, ANNOTATI ON/ADDEN DUM Dannie Moore MD [address], [place], [address] , [facility] 6 10:14:24 Asthma [id number] Completed 201307/01/2017 Dannie Moore MD [address], [place], [address] , [facility] 7 11:42:26 Headache [id number] Completed 201306/01/2024 Dannie Moore MD [address], [place], [address] , [facility] 4 14:47:07 Screenin g for malignan t neoplasm of breast Completed 201306/12/2015 RECORDED 03/02/20 14 1:17PM BY PETTY NESS MA, OFFICE VISIT Dannie Moore MD [address], [place], [address] , [facility] 6 10:14:24 Bursitis 58585883 Completed 201205/15/2014 IMPRESSI ON: PRINTED INFO PROVIDED FOR HOME THERAPY. TO RHEUM IF PERSISTA NT/WORSE ; RECORDED 03/06/20 13 9:53AM BY PETTY NESS MA, SAYRA ON/VALERY Moore MD [address] [address], [place], [address] , [facility] 6 10:14:24 Screenin g for malignan t neoplasm of colon Completed 201205/15/2014 RECORDED 10/16/20 13 8:49AM BY PETTY NESS MA, SAYRA ON/VALERY Moore MD [address] [address], [place], [address] , [facility] 6 10:14:24 Cough [id number] Completed 201305/15/2014 IMPRESSI ON: SEE IF THIS HELPS. WILL NEEDS FURTHER EVAL IF SYMPTOMS WORSEN/P ERSIST.; RECORDED 03/02/20 14 1:00PM BY PETTY NESS MA, SAYRA ON/VALERY Moore MD [address] [address], [place], [address] , [facility] 6 10:14:24 Influenz a vaccine needed [id number] 06 Completed 201105/15/2014 RECORDED 06/29/20 12 10:46AM BY PETTY NESS MA, OFFICE VISIT Dannie Moore MD [address] [address], [place], [address] , [facility] 6 10:14:24 Gastroes ophageal reflux disease 128063002 Completed 201105/15/2014 RECORDED 07/26/20 12 9:11AM BY PETTY NESS MA, SAYRA ON/VALERY Moore MD [address] [address], [place], [address] , [facility] 6 10:14:24 Adult health examinat ion Completed 201306/12/2015 IMPRESSI ON: WILL UPDATE IMMUNIZA TION STATUS AND SCREEN BASED ON RISK FACTORS. REGULAR DENTAL CARE AND SEATBELT USE ADVISED. DISTRACT ED DRIVING DISCUSSE D. COLON, BREAST AND CERVICAL CANCER SCREENIN G ARE UTD. ADVANCE DIRECTIV ES DISCUSSE D AND IN PLACE.; RECORDED 03/07/20 14 6:35AM BY DANNIE Maciel MD, OFFICE VISIT Dannie Moore MD [address] [address], [facility] [place], [address] , [facility] 6 10:14:24 Adult health examinat ion Completed 201205/15/2014 IMPRESSI ON: WILL UPDATE IMMUNIZA TION STATUS (ZOSTAVA X VACCINE ADVISED) AND SCREEN BASED ON RISK FACTORS. REGULAR DENTAL CARE AND SEATBELT USE ADVISED. DISTRACT ED DRIVING DISCUSSE D. ROUTINE DIVER HELPER CARE UTD VIA DR SAMUEL. DUE FOR COLONOSO CPY DUE THIS SUMMER.; RECORDED 08/04/20 13 1:04PM BY PETTY NESS MA, ANNOTATI ON/ADDEN DUM Dannie Moore MD [address] [address], [place], [address] , [facility] 6 10:14:24 Gastroes ophageal reflux disease 808716438 Active 2013 STORY: SON Beyer Patrice kinsey, [facility] 1 10:09:05 Hypercal cemia 58662709 Completed 201306/12/2015 IMPRESSI ON: SLIGHT ELEVATIO N, MAY BE LAB ERROR OR RELATED TO SUPPLEME NT. WILL REDUCE SUPPLEME NT DOSE AND FOLLOW. IF PERSISTA NT WILL NEED FURTHER EVALUATI ON.; RECORDED 03/02/20 14 1:13PM BY PETTY NESS MA, OFFICE VISIT Dannie Moore MD [address] [address], [place], [address] , [facility] 6 10:14:24 Pure hypercho lesterol emia 321661909 Active 2013 Kayleen Ibrahim tio, [facility] 1 10:09:05 Hypercho lesterol emia 06046614 Completed 201105/15/2014 RECORDED 07/26/20 12 9:12AM BY PETTY NESS MA, ANNEATI ON/VALERY Moore MD [address], [place], [address] , [facility] 6 10:14:24 Shoulder joint pain 474370261 Completed 201305/15/2014 IMPRESSI ON: SUSPECT BURSITIS VS ROTATOR CUFF TENDINOP ATHY. GIVEN LACK OF IMPACT HISTORY WILL DEFER IMAGING TO [facility]. HAS NAPROXER N AT HOME WILL TRY PAIN MED AT BEDTIME TO HELP WITH SLEEP WHILE WAITING FOR ORTHO.; RECORDED 12/11/19 14 1:12PM BY PETTY NESS MA, ANNOTJHOANA ON/VALERY Moore MD [address], [place], [address] , [facility] 6 10:14:24 Single major depressi ve episode Completed 201307/01/2017 STORY: ZENOBIA /BOBBY Moore MD [address] [facility] [address], [place], [address] , [facility] 7 11:43:42 Major depressi on single episode, in partial remissio n [id number] Completed 201306/01/2024 Dannie Moore MD [address] [facility] [address], [place], [address] , [facility] 4 14:44:19 Screenin g for malignan t neoplasm of breast Completed 201205/15/2014 RECORDED 08/04/20 13 1:04PM BY PETTY NESS MA, ANNOTATI ON/VALERY DUM Dannie Moore MD [address] [address], [place], [address] , [facility] 6 10:14:24 Migraine 30715370 Active 2013 Kayleen kinsey [facility] 1 10:09:05 Plantar nerve lesion 319078062 Completed 201205/15/2014 IMPRESSI ON: PT HAS HISTORY OF THIS DIAGNOSI S AND IS REQUESTI NG PODIATRY CONSULTA TION. SHE WILL ARRANGE. ; RECORDED 08/04/20 13 1:04PM BY PETTY NESS MA, ANNOTATI ON/ADDEN DUM Dannie Moore MD [address] [address], [place], [address] , [facility] 6 10:14:24 Non-toxi c multinod ular goiter 34115817 Active 2013 Kayleen kinsey, [facility] 1 10:09:05 [place] ht 192102777 Completed 201306/26/2016 IMPRESSI ON: POTETNAI L CROZE CUTTER HELPER HEALTH CONSEQUE ILES TREE Doyle. HEALTHIE R DIETARY AND EXERCISE HABITS ADVISED. ; RECORDED 03/02/20 14 1:13PM BY PETTY NESS MA, OFFICE VISIT Dannie Moore MD [address] [address], [place], [address] , [facility] 9 13:42:37 Active or passive immuniza tion Completed 201105/15/2014 RECORDED 07/26/20 12 9:57AM BY DANNIE Maciel MD, OFFICE VISIT Dannie Moore MD [address] [address], [place], [address] , [facility] 6 10:14:24 Chronic sinusiti s 85179395 Completed 201305/15/2014 RECORDED 03/02/20 14 1:44PM BY DANNIE Maciel MD, ANNOTATI ON/ADDEN DUM Dannie Moore MD [address] [facility] [address], [place], [address] , [facility] 6 10:14:24 Administ ration of diphther ia and tetanus vaccine Completed 201205/15/2014 RECORDED 08/04/20 13 1:04PM BY PETTY NESS MA, ANNOTATI ON/ADDEN DUM Dannie Moore MD [address] [address], [place], [address] , [facility] 6 10:14:24 Non-toxi c uninodul ar goiter 505848190 Completed 201306/26/2016 STORY: GLENN PASTORA; Dannie Moore MD [address] [address], [place], [address] , [facility] 6 10:14:24 Acute upper respirat ory infectio n 91373774 Completed 201205/15/2014 IMPRESSI ON: SOUNDS VIRAL AND LIKELY RESOLVIN G. CALL IF PERSISTA NT/WORSE .; RECORDED 03/06/20 13 9:53AM BY PETTY NESS MA, ANNOTATI ON/ADDEN DUM Dannie Moore MD [address] [address], [place], [address] , [facility] 6 10:14:24 Administ ration of viral vaccine Completed 201306/12/2015 RECORDED 03/02/20 14 1:54PM BY DANNIE Maciel MD, OFFICE VISIT Dannie Moore MD [address] [address], [place], [address] , [facility] 6 10:14:24 Tobacco user [id number] Completed 201206/11/2014 RECORDED 03/06/20 13 9:53AM BY PETTY NESS MA, ANNOTATI ON/ADDEN DUM Dannie Moore MD [address] [facility] [address], [place], [address] , [facility] 6 10:14:24 Bursitis 58215174 Completed 201206/11/2014 IMPRESSI ON: PRINTED INFO PROVIDED FOR HOME THERAPY. TO RHEUM IF PERSISTA NT/WORSE ; RECORDED 03/06/20 13 9:53AM BY PETTY NESS MA, SAYRA ON/VALERY Moore MD [address] [facility] [address], [place], [address] , [facility] 6 10:14:24 Screenin g for malignan t neoplasm of colon Completed 201206/11/2014 RECORDED 10/16/20 13 8:49AM BY PETTY NESS MA, SAYRA ON/VALERY Moore MD [address] [address], [place], [address] , [facility] 6 10:14:24 Cough 13976544 Completed 201306/11/2014 IMPRESSI ON: SEE IF THIS HELPS. WILL NEEDS FURTHER EVAL IF SYMPTOMS WORSEN/P ERSIST.; RECORDED 03/02/20 14 1:00PM BY PETTY NESS MA, SAYRA ON/VALERY Moore MD [address] [address], [place], [address] , [facility] 6 10:14:24 Influenz a vaccine needed [id number] 06 Completed 201106/11/2014 RECORDED 06/29/20 12 10:46AM BY PETTY NESS MA, OFFICE VISIT Dannie Moore MD [address] [address], [place], [address] , [facility] 6 10:14:24 Gastroes ophageal reflux disease 112745420 Completed 201106/11/2014 RECORDED 07/26/20 12 9:11AM BY PETTY NESS MA, SAYRA ON/ADDEN DUM Dannie Moore MD [address], [place], [address] , [facility] 6 10:14:24 Hypercho lesterol emia 25865142 Completed 201106/11/2014 RECORDED 07/26/20 12 9:12AM BY PETTY NESS MA, ANNEATI ON/ADDEN DUM Dannie Moore MD [address], [place], [address] , [facility] 6 10:14:24 Shoulder joint pain 024869584 Completed 201306/11/2014 IMPRESSI ON: SUSPECT BURSITIS VS ROTATOR CUFF TENDINOP ATHY. GIVEN LACK OF IMPACT HISTORY WILL DEFER IMAGING TO [facility]. HAS NAPROXER N AT HOME WILL TRY PAIN MED AT BEDTIME TO HELP WITH SLEEP WHILE WAITING FOR ORTHO.; RECORDED 12/11/19 14 1:12PM BY PETTY NESS MA, ANNEATI ON/ADDEN DUM Dannie Moore MD [address] [facility] [address], [place], [address] , [facility] 6 10:14:24 Plantar nerve lesion 277855510 Completed 201206/11/2014 IMPRESSI ON: PT HAS HISTORY OF THIS DIAGNOSI S AND IS REQUESTI NG PODIATRY CONSULTA TION. SHE WILL ARRANGE. ; RECORDED 08/04/20 13 1:04PM BY PETTY NESS MA, SAYRA ON/ADDEN DUM Dannie Moore MD [address] [facility] [address], [place], [address] , [facility] 6 10:14:24 Active or passive immuniza tion Completed 201106/11/2014 RECORDED 07/26/20 12 9:57AM BY DANNIE Maciel MD, OFFICE VISIT Dannie Moore MD [address] [facility] [address], [place], [address] , [facility] 6 10:14:24 Chronic sinusiti s 99889435 Completed 201306/11/2014 RECORDED 03/02/20 14 1:44PM BY DANNIE Maciel MD, ANNOTATI ON/VALERY Moore MD [address] [address], [place], [address] , [facility] 6 10:14:24 Administ ration of diphther ia and tetanus vaccine Completed 201206/11/2014 RECORDED 08/04/20 13 1:04PM BY PETTY NESS MA, ANNOTATI ON/VALERY Moore MD [address] [address], [place], [address] , [facility] 6 10:14:24 Acute upper respirat ory infectio n 13644525 Completed 201206/11/2014 IMPRESSI ON: SOUNDS VIRAL AND LIKELY RESOLVIN G. 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 Completed 06/12/2015 s/p gilbert -Paula Moore MD [address] [address], [place], [address] , [facility] 6 10:14:24 Mammogra phy abnormal 958614556 Completed 201407/01/2017 Dannie Moore MD [address], [place], [address] , [facility] 7 11:41:54 Osteopen ia 811570754 Completed 11/20/2018 Dannie Moore MD [address], [place], [address] , [facility] 9 20:53:35 Acute pharyngi tis 004635644 Completed 03/01/2016 Dannie Moore MD [address] [facility] [address], [place], [address] , [facility] 6 10:14:24 Cough 90153502 Completed 06/26/2016 Dannie Moore MD [address], [place], [address] , [facility] 6 10:14:24 Recurren t sinusiti s 290013655 Active Kayleenfern kinsey, [facility] 1 10:09:05 Low back pain 061012633 Active Kayleen Ibrahim null, [facility] 1 10:09:05 Inflamma tion of sacroili ac joint 33159240 Completed 07/01/2017 Dannie Moore MD [address] [facility] [address], [place], [address] , [facility] 7 11:43:30 Insomnia 955911802 Active 2016 Kayleen kinsey, [facility] 1 10:09:05 Impaired fasting glycemia 554201576 Active 2017 Kayleenfern Ibrahim null, [facility] 1 10:09:05 [place] ht 123536830 Completed 201707/25/2019 Dannie Moore MD [address] [facility] [address], [place], [address] , [facility] 9 13:42:37 Sinus tachycar bud 97381543 Active 2017 Kayleenfern Ibrahim null, [facility] 1 10:09:05 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 863412768 Active 2018 Kayleen Ibrahim null, [facility] 1 10:09:05 Degenera tion of interver tebral disc 02099422 Active 2018 C5-C7 Kayleen Ibrahim null, [facility] 1 10:09:05 Osteopor osis 11430458 Completed 201804/05/2023 Dannie Moore MD [address] [facility] [address], [place], [address] , [facility] 3 17:05:27 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 635724330 Active 2018 Kayleenfern kinsey, [facility] 1 10:09:05 Divertic ular disease 918374260 Active 2018 Kayleen Ibrahimfern kinsey, [facility] 1 10:09:05 Anxiety state 280944175 Active 2011 Nathalia Money null, [facility] 0 08:50:09 Allergic rhinitis 89229154 Active 2011 Nathalia Money [facility], [facility] 0 08:50:09 Disorder of bone and articula r cartilag e 152361331 Active 2011 Kayleen Ibrahim null, [facility] 1 10:09:05 Borderli ne glaucoma Active 2011 Nathalia Money null, [facility] 0 08:50:09 Osteopen ia 757693792 Active 2015 Kayleenanne Ibrahim null, [facility] 1 10:09:05 Family history of breast cancer 082117714 Active 2012 Nathalia Duorn null, [facility] 0 08:50:09 Sinus node dysfunct ion 00576732 Active 2011 Nathalia Money null, [facility] 0 08:50:09 Actinic keratosi s 874228584 Active 2019 Kayleen Ibrahim null, [facility] 1 10:09:05 Prediabe sachin 633372418 Active 2019 Kayleen Ibrahim null, [facility] 1 10:09:05 Chronic kidney disease stage 3 030106484 Completed 202005/07/2021 Dannie Mooer MD [address] [facility] [address], [place], [address] , [facility] 1 21:18:46 Hyperten sive renal disease 08353046 Active 2020 Concepción Main null, [facility] 1 09:56:37 Hyperpar athyroid ism 60255037 Active 2020 Dannie Moore MD [address] [facility] [address], [place], [address] , [facility] 1 21:06:42 Impingem ent syndrome of right shoulder region 63108789173 9102 Active 2021 Dannie Moore MD [address] [facility] [address], [place], [address] , [facility] 2 12:51:37 Chronic paronych ia 633731874 Completed 202206/01/2024 Dannie Moore MD [address] [address], [address] , [facility] 4 14:47:05 Chronic kidney disease stage 2 656867872 Completed 202209/28/2023 Dannie Moore MD [address] [facility] [address], [place], [address] , [facility] 3 06:57:37 Bursitis of right hip 944217035 Active 2022 Dannie Moore MD [address], [place], [address] , [facility] 3 14:53:08 Chronic kidney disease stage 3A 803517885 Active 2022 Dannie Moore MD [address] [facility] [address], [place], [address] , [facility] 3 06:57:54 Postoper ative hypothyr oidism 56342153 Active 2023 Dannie Moore MD [address] [facility] [address], [place], [address] , [facility] 4 09:11:14 Hiatal hernia 86911311 Active 2023 Dannie Moore MD [address] [facility] [address], [place], [address] , [facility] 4 14:46:12 Major depressi on in [facility] n 29394065 Active 2023 Dannie Moore MD [address] [facility] [address], [place], [address] , [facility] 4 15:08:48 Body mass index 25-29 - overweig ht 542601894 Active 2023 Dannie Moore MD [address] [facility] [address], [place], [address] , [facility] 4 15:18:13 Problem Notes None recorded. Procedures Surgical History Date Name Laterality Status Provider Name and Address Organization Details Recorded Time 2023 Advanced Care Planning completed Dannie Moore MD [address] [facility] [address], [place], [address], [facility] 4 14:58:26 2023 total thyroidectomy completed Shanda Mcgrath [facility] 4 08:05:25 2022 Most Recent Mammogram completed Shanda Mcgrath [facility] 3 14:40:01 2022 Mammogram screening completed Andreina West [facility] 3 16:00:14 2020 biopsy of lesion of thyroid gland completed Dannie Moore MD [address] [facility] [address], [place], [address], [facility] 1 06:59:41 2020 biopsy of thyroid completed Dannie Moore MD [address] [facility] [address], [place], [address], [facility] 1 06:36:06 2020 Six-Item Cognitive Test completed Petty Ness MA [facility] 1 14:00:21 2019 esophagogastroduodenoscopy completed Dannie Moore MD [address] [facility] [address], [place], [address], [facility] 4 14:45:57 2018 Mini-Cog Test completed Petty Ness MA [facility] 9 13:09:37 2018 Date of Last Colonoscopy completed Petty Ness MA [facility] 2 13:09:08 2018 colonoscopy completed Dannie Moore MD [address] [place] [address], [facility] 1 14:40:15 2018 Most Recent Bone Density completed Petty Ness MA [facility] 9 13:06:40 2018 Dxa bone density study completed Petty Ness MA [facility] 9 13:06:13 2017 Eye Surgery completed Dannie Moore MD [address], [place], [address], [facility] 9 13:39:05 2017 Mini-Cog Test completed Chrissy Cazares [facility] 8 10:42:09 2017 Echo transthoracic completed Dannie Moore MD [address], [place], [address], [facility] 8 09:47:42 2016 Fall Risk Assessment completed Sidra frederick [place] [facility] 7 11:14:21 2016 Mini-Cog Test completed Sidra frederick [place] [facility] 7 11:15:30 2016 Advanced Care Planning completed Dannie Moore MD [address], [place], [address], [facility] 7 11:40:14 2015 Fall Risk Assessment completed Petty Ness [place] [facility] 6 09:56:47 2015 Mini-Cog Test completed Ptety Ness [place] [facility] 6 09:57:35 2015 Advanced Care Planning completed Petty Ness [place] [facility] 6 09:49:22 2014 Fall Risk Assessment completed Petty Ness [place] [facility] 5 14:12:30 2014 Mini-Cog Test completed Petty Ness MA [facility] 5 14:12:30 2012 Date of Last Pap Smear completed Petty Ness [place] [facility] 5 14:00:16 1985 Hysterectomy completed Petty Ness [place] [facility] 6 09:54:00 1977 oophorectomy completed Dannie Moore MD [address] [facility] [address], [place], [address], [facility] 9 19:13:18 1958 Appendectomy completed Petty Ness MA [facility] 6 09:54:00 Tonsillectomy completed Petty Ness [place] [facility] 5 14:00:16 Arthroscopic Surgery completed Ritika Ness [place] [facility] 6 09:54:00 Thyroid Surgery completed Petty Ness [place] [facility] 6 09:54:00 Hemorrhoidectomy completed Petty Ness [place] [facility] 5 14:00:16 intra-articular injection completed Dannie Moore MD [address] [facility] [address], [place], [address], [facility] 3 14:54:50 Imaging Results None recorded. Procedure Notes None recorded. Medical Equipment None Reported. Allergies Allergen ID Allergen Name Allergen Category Reaction Reaction Severity Criticality Documentation Date Start Date Code Code System Note Provider Name and Address Organization Details Recorded Time 56979 ampicilli n medicatio n abdominal pain Not available Not available 07/01/2017 733 RxNorm JAIRO Romo, [facility] 7 11:11:25 52688 meperidin e medicatio n Not available Not available Not available 03/15/2020 6754 RxNorm Nathalia Duron [facility] 0 11:25:39 71674 Bactrim medicatio n nausea moderate Not available 10/19/2020 92515 9 RxNorm Dannie Moore MD [address] [facility] [address], [place], [address], [facility] 3 09:00:49 69938 Bactrim medicatio n abdominal pain nausea severe moderate Not available 10/19/2020 70892 9 RxNorm Sidra frederick [facility], [facility] 0 10:30:06 4130 Demer[facility] medicatio n Not available Not available Not available 05/15/20142013 88613 1 RxNorm Dannie Moore MD [address] [facility] [address], [place], [address], [facility] [place] [facility] 09:00:52 Medications Name Sig Start Date Stop Date Status Note LastModified by Organization Details LastModified Time venlafaxi ne ER 37.5 mg capsule,e xtended release 24 hr 03/14 completed Not Available Not Available Not Available prednison e 10 mg tablet Take 3 tablets every day by oral route for 5 days. 09/30 completed Not Available Not Available Not Available venlafaxi ne ER 75 mg capsule,e xtended release 24 hr 03/14 completed Not Available Not Available Not Available doxycycli ne hyclate 100 mg capsule Take 1 capsule twice a day by oral route for 7 days. 04/05 completed Not Available Not Available Not Available azithromy rony 250 mg tablet TAKE 2 TABLETS (500 MG) BY ORAL ROUTE ONCE DAILY FOR 1 DAY THEN 1 TABLET (250 MG) BY ORAL ROUTE ONCE DAILY FOR 4 DAYS 08/26 completed Not Available Not Available Not Available fluconazo le 150 mg tablet PLEASE SEE ATTACHED FOR DETAILED DIRECTIO NS 08/30 completed Not Available Not Available Not Available metoprolo l succinate ER 50 mg tablet,ex tended release 24 hr TAKE 1 TABLET BY MOUTH EVERY DAY 07/03 completed Not Available Not Available Not Available ranitidin e 300 mg tablet AT BEDTIME 04/24 completed RECORDED 04/24/20 13 11:37AM BY SAYRA DOUGHERTY ON/VALERY GRAF; Not Available Not Available Not Available hydrocodo ne 5 mg-acetam inophen 325 mg tablet Take 1 tablet twice a day by oral route as needed for 5 days. 07/01 completed Not Available Not Available Not Available ibuprofen 200 mg capsule Take 1 capsule every 6 hours by oral route. 03/02 completed Not Available Not Available Not Available prednison e 20 mg tablet Take 2 tablets every day by oral route for 7 days. 07/25 completed Not Available Not Available Not Available alendrona te 70 mg tablet Take 1 tablet every week by oral route. 07/25 completed Not Available Not Available Not Available metoprolo l succinate ER 100 mg tablet,ex tended release 24 hr TAKE 1 TABLET EVERY DAY active Not Available Not Available No t Available moxifloxa rony 400 mg tablet TAKE 1 TABLET BY MOUTH EVERY DAY FOR 7 DAYS 12/10 completed Not Available Not Available Not Available venlafaxi ne ER 150 mg capsule,e xtended release 24 hr 150 mg by oral route. 03/14 completed Not Available Not Available Not Available acetamino phen 300 mg-codein e 30 mg tablet Take 1 tablet every 6 hours by oral route as needed for 5 days. 10/22 completed Not Available Not Available Not Available ciproflox acin 250 mg tablet Take 1 tablet twice a day by oral route for 3 days. 07/01 completed Not Available Not Available Not Available doxepin 10 mg capsule Take 1 capsule as needed by oral route at bedtime for 90 days. 09/30 completed Not Available Not Available Not Available bupropion HCl SR 100 mg tablet,12 hr sustained -release Take 1 tablet twice a day by oral route for 90 days. 02/07 completed Not Available Not Available Not Available butalbita l-acetami nophen-ca ffeine 50 mg-325 mg-40 mg tablet TAKE ONE TABLET BY MOUTH EVERY SIX HOURS NEEDED 11/18/ 2024 active Not Available Not Available Not Avai lable levothyro xine 100 mcg tablet TAKE 1 TABLET BY MOUTH EVERY DAY active Not Available Not Available No t Available Guaiatuss in AC 10 mg-100 mg/5 mL oral liquid Take 10 mL every 4 hours by oral route as needed for 5 days. 2014 active Not Available Not Available Not Avai lable famotidin e 20 mg tablet Take 1 tablet twice a day by oral route as needed. 08/28 completed Not Available Not Available Not Available lorazepam 0.5 mg tablet DAILY 04/01 completed RECORDED 04/24/20 14 11:29AM BY DANNIE Maciel MD, MEDICATI ON AUTO-YOLIS CTIVATIO N; Not Available Not Available Not Available codeine-b utalbital -ASA-caff eine 30 mg-50 mg-325 mg-40 mg capsule EVERY SIX HOURS, NEEDED 11/21 completed RECORDED 11/21/19 14 4:31PM BY DANNIE Maciel MD, ANNOTATI ON/ADDEN DUM; Not Available Not Available Not Available trazodone 100 mg tablet Take 1 tablet every day by oral route at bedtime for 90 days. active Not Available Not Available No t Available benzonata te 100 mg capsule TAKE 1 CAPSULE BY MOUTH 3 TIMES A DAY FOR 14 DAYS NEEDED FOR COUGH 06/01 completed Not Available Not Available Not Available cephalexi n 500 mg capsule 03/14 completed Not Available Not Available Not Available simvastat in 20 mg tablet TAKE 1 TABLET EVERY DAY IN THE EVENING active Not Available Not Available No t Available erythromy rony 5 mg/gram (0.5 %) eye ointment APPLY 1 CM RIBBON INTO THE LOWER CONJUNCT IVAL SAC(S) IN THE AFFECTED EYE(S) BY OPHTHALM IC ROUTE 3 TIMES PER DAY FOR 10 days 2023 active Not Available Not Available Not Avai lable fluoxetin e 20 mg tablet Take 1 tablet every day by oral route for 90 days. 03/02 completed Not Available Not Available Not Available fluoxetin e 10 mg capsule 1 po qd active Not Available Not Available Not Available gabapenti n 300 mg capsule Take 1 capsule 3 times a day by oral route for 90 days. 07/01 completed Not Available Not Available Not Available omeprazol e 20 mg capsule,d elayed release Take 1 capsule every day by oral route. active Not Available Not Available No t Available monteluka st 10 mg tablet Take 1 tablet every day by oral route for 30 days. 10/22 completed Not Available Not Available Not Available hydrocodo ne 5 mg-acetam inophen 500 mg tablet AT BEDTIME NEEDED 10/31 completed RECORDED 11/03/19 14 11:43AM BY DANNIE Maciel MD, MEDICATI ON AUTO-YOLIS CTIVATIO N; Not Available Not Available Not Available lorazepam 1 mg tablet TAKE 1/2 TABLET 2 TIMES A DAY NEEDED FOR ANXIETY FOR 30 DAYS active Not Available Not Available No t Available ibuprofen 600 mg tablet Take 1 tablet 3 times a day by oral route for 10 days. active Not Available Not Available No t Available methylpre dnisolone 4 mg tablets in a dose pack Take 1 package by oral route for 6 days. active Not Available Not Available No t Available albuterol sulfate HFA 90 mcg/actua tion aerosol inhaler Inhale 2 puffs every 4 hours by inhalati on route as needed for 30 days. 10/22 completed Not Available Not Available Not Available loratadin e 10 mg tablet Take 1 tablet every day by oral route for 30 days. 10/22 completed Not Available Not Available Not Available levothyro xine 112 mcg tablet Take 1 tablet every day by oral route. 06/01 completed Not Available Not Available Not Available amoxicill in 875 mg-potass ium clavulana te 125 mg tablet TWO TIMES DAILY 12/25 completed RECORDED 12/28/19 14 9:55AM BY DANNIE Maciel MD, MEDICATI ON AUTO-YOLIS CTIVATIO N; Not Available Not Available Not Available tobramyci n 0.3 %-dexamet hasone 0.1 % eye drops,oliverio pension active Not Available Not Available Not Available oxycodone 5 mg tablet TAKE 1 TABLET BY MOUTH EVERY 6 HOURS FOR 3 DAYS NEEDED FOR PAIN 06/01 completed Not Available Not Available Not Available neomycin 3.5 mg/g-poly myxin B 10,000 unit/g-de xameth 0.1 % eye oint 03/02 completed Not Available Not Available Not Available Estrace 0.01% (0.1 mg/gram) vaginal cream Insert 1 g every day by vaginal route as needed for 90 days. 07/01 completed Not Available Not Available Not Available aripipraz ole 5 mg tablet Take 1 tablet every day by oral route for 90 days. 07/07 completed Not Available Not Available Not Available bupropion HCl XL 300 mg 24 hr tablet, extended release 300 mg by oral route. active Not Available Not Available No t Available bupropion HCl XL 150 mg 24 hr tablet, extended release 08/28 completed Not Available Not Available Not Available nitrofura ntoin monohydra te/macroc rystals 100 mg capsule Take 1 capsule twice a day by oral route. 07/23 completed Not Available Not Available Not Available Fish Oil take 1 tab daily po 06/25 completed RECORDED 03/02/20 14 1:14PM BY PETTY NESS [place], OFFICE VISIT; Not Available Not Available Not Available naproxen TWO TIMES DAILY, NEEDED WITH FOORD 11/15 completed RECORDED 11/16/19 14 11:30AM BY DANNIE Maciel MD, MEDICATI ON AUTO-YOLIS CTIVATIO N; Not Available Not Available Not Available multivita min Take 1 tablet po daily active Not Available Not Available No t Available Calcium + D DAILY 01/10 completed RECORDED 03/07/20 14 6:41AM BY DANNIE Maciel MD, MEDICATI ON AUTO-YOLIS CTIVATIO N; Not Available Not Available Not Available mometason e 0.1 % topical solution Apply 1 applicat ion as needed by topical route for 15 days. 07/25 completed Not Available Not Available Not Available Trazamine 50 mg oral pack DAILY active RECORDED 06/29/20 12 10:43AM BY PETTY NESS [place], ANNOTATI ON/ADDEN DUM; Not Available Not Available Not Available Zostavax (PF) 19,400 unit/0.65 mL subcutane ous suspensio n ELVIA X 1 03/03 completed RECORDED 03/07/20 14 6:41AM BY DANNIE Maciel MD, MEDICATI ON AUTO-YOLIS CTIVATIO N; Not Available Not Available Not Available Calcium Citrate + D with Mag Taket 1 tablet po daily 09/30 completed Not Available Not Available Not Available Excedrin Extra Strength 1-2 tabs as needed active Not Available Not Available No t Available Pulmicort Flexhaler 90 mcg/actua tion breath activated Inhale 2 puffs twice a day by inhalati on route as directed for 28 days. 09/30 completed Not Available Not Available Not Available Fluzone High-Dose (PF) 180 mcg/0.5 mL intramusc ular syringe active Not Available Not Available Not Available Fluzone High-Dose Quad (PF) 240 mcg/0.7 mL IM syringe 10/19 completed Not Available Not Available Not Available Vitals Date Recorded Body height Oxygen saturation Oxygen saturation in Arterial blood by Pulse oximetry Heart rate Body temperature Systolic blood pressure Diastolic blood pressure Provider Name and Address Organization Details Last Updated DateTime 4 153.04 cm 98 % 98 % 97 /min 97.6 [degF] 125 mm[Hg] 82 mm[Hg] Rona Delatorre MA [facility] 4 13:59:50 Social History Question Answer Notes LastModified by Organizat ion Details LastModified Time Tobacco Smoking Status Former Smoker Not Available [facility] 09/03/2020 03:36:44 Do You Have An Advance Directive? Yes Taylor (daughter) And Yemi (son) [email or web address] Information not available 10/19/2020 What Is Your Level Of Alcohol Consumption? Occasional Rarly [email or web address] Information not available 04/05/2023 Is Blood Transfusion Acceptable In An Emergency? Yes [id number] Information not available 09/03/2020 What Is Your Level Of Caffeine Consumption? None Rearly awychowski Information not available 04/05/2023 How Much Tobacco Do You Chew? None [id number] Information not available 09/03/2020 In The 14 Days Before Symptom Onset, Have You Had Close Contact With A [facility] COVID-19 While That Case Was Ill? No [id number] Information not available 09/03/2020 In The 14 Days Before Symptom Onset, Have You Had Close Contact With A Person Who Is Under Investigation For COVID-19 While That Person Was Ill? No [id number] Information not available 09/03/2020 Have You Been To An Area Known To Be High Risk For COVID-19? No [id number] Information not available 09/03/2020 Are You Currently Employed? No Retired Information not available 10/19/2020 What Type Of Diet Are You Following? REGULAR [id number] Information not available 09/03/2020 Which Illicit Or Recreational Drugs Have You Used? None [id number] Information not available 09/03/2020 Do You Or Have You Ever Used E-cigarettes Or Vape? 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 16+yearssince lastcigarette Information not available 10/19/2020 Live Alone Or With Others? Alone Information not available 06/12/2015 Do You Take Precautions To Prevent Distracted Driving? Yes Information not available 06/12/2015 How Often Do You Need To Have Someone Help You When You Read Instructions, Pamphlets, Or Other Written Material From Your Doctor Or Pharmacy? Never Information not available 06/12/2015 Have You Served In The ? No Information not available 07/23/2016 Have You Or Anyone In Your Household Had Any Of The Following Symptoms In The Last 14 Days: Sore Throat, Cough, Chills, Body Aches For Unknown Reasons, Shortness Of Breath For Unknown Reasons, Loss Of Smell, Loss Of Taste, Fever At Or Greater Than 100 Degrees Fahrenheit? No Information not available 10/19/2020 Are You Or Anyone In Your Household A Health Care Provider Or Emergency Responder? No Information not available 10/19/2020 To The Best Of Your Knowledge Have You Been In Close Proximity To Any Individual Who Tested Positive For COVID-19? No Information not available 10/19/2020 *AWV ONLY* Are You Presently Prescribed Opioid Medication By PCP Or Specialist? If YES -Provider Assess The Benefit For Other, Non-opioid Pain Therapies Instead, Even If The Patient Does Not Have OUD But Is Possibly At Risk. No Information not available 10/19/2020 Have You Recently Traveled To A [place] [address] High Risk Area Or Gathering In The Last 10 Days? No Information not available 02/24/2021 What Was The Date Of Your Most Recent Tobacco Screening? 06/01/2024 [email or web address] Information not available 06/01/2024 How Many Children Do You Have? 2 [id number] Information not available 09/03/2020 What Is Your Current Pack Years? 10packyears Information not available 02/24/2021 Seat Belts Used Routinely Yes Information not available 06/12/2015 Are You Sexually Active? No [id number] Information not available 09/03/2020 Smoke Alarm In Home Yes Information not available 06/12/2015 At What Age Did You Start Smoking Tobacco? 22 Information not available 02/24/2021 Are You Passively Exposed To Smoke? No Information not available 06/12/2015 Do You Or Have You Ever Used Smokeless Tobacco? Never Used Smokeless Tobacco [id number] Information not available 09/03/2020 How Much Tobacco Do You Smoke? 1 PPW Information not available 02/24/2021 Do You Use Any Illicit Or Recreational Drugs? No Information not available 03/02/2022 Do You Use Sunscreen Routinely? Yes [id number] Information not available 09/03/2020 How Many Years Have You Smoked Tobacco? 8 [id number] Information not available 09/03/2020 Do You Or Have You Ever Used Any Other Forms Of Tobacco Or Nicotine? No Information not available 03/02/2022 Sex: Unknown Functional Status Question Answer Note LastModified by Organizat ion Details LastModified Time Are you able to walk? YESWOREST Information not available 03/02/2022 Are you able to care for yourself? Yes [id number] Information not available 09/03/2020 What is your exercise level? Occasional walking 3x week [id number] Information not available 09/03/2020 Mental Status None recorded. Family History Relationship Description Onset Age of this Age Resolved Age Notes LastModified by Organization Details LastModified Time Father Heart disease 66 [email or web address] Not available 06/26 10:18:29 Father Hypercholest erolemia 66 [email or web address] Not available 06/26 10:18:29 Mother Malignant tumor of colon [email or web address] Not available 06/26 10:18:29 Mother Disorder of thyroid gland awychowski Not available 06/26 10:18:29 Mother Alcohol abuse 67 [email or web address] Not available 06/26 10:18:29 Mother Arthritis awychowski Not availa ble 06/26/2016 10:18:29 Paternal Grandfather Cerebrovascu lar accident awychowski Not available 10:18:29 Paternal Aunt Malignant tumor of breast 55 64 abolcun Not available 2015 09:53:17 Sister Malignant tumor of breast 65 awychowski Not available 06/26 10:18:29 Sister Disorder of thyroid gland 60 awychowski Not available 06/26 10:18:29 Paternal Grandmother Heart disease 83 awychowski Not available 06/26 10:18:29 Son Well adult [email or web address] Not avail able 06/26/2016 10:18:29 Daughter Well adult awychowski Not sadia ilable 06/26/2016 10:18:29 Medical History Condition Response Coronary Artery Disease N Other N Gout N Kidney Stones N Blood Diseases N Hyperthyroidism N Breast Cancer N mrsa exposure N Depression Y COPD N Lung Disease N Hypothyroidism N Developmental or Behavioral Disorders N Defects or Inherited Disease N Breast Problem N Anesthesia Complications N Headaches/Migraines Y Varicose Veins N Anxiety Disorder Y Muscle, Joint, or Bone Problems N Obesity Y Vision or Eye Problems N Arthritis N Head Injury/Concussion N Polyps N Infertility N Mental Disorder N Congenital Anomalies N Acid Reflux (GERD) Y Cancer N Stroke N ADHD N Endometriosis N High Cholesterol Y Liver Disease N Headaches N Fibromyalgia N Kidney Disease N Heart Problems N Ear or Hearing Problems N Hospitalizations N Thyroid Problems Y GI Problems N Developmental Delay N Acne N Skin Problems N Eating Disorder Y Anemia N Constipation N Bladder Problems Y Mental Illness N Ovarian Cancer N Diabetes N Bedwetting N Blood Transfusions N Seizures/Epilepsy N Heart Problems/Murmur N Tuberculosis N AIDS/HIV N Congestive Heart Failure (CHF) N Eczema N Diverticulitis N Abuse/Domestic Violence N Asthma N Allergies Y Reflux/GERD N Hepatitis N Heart Disease N Pulmonary Embolism N Hypertension Y Osteoporosis N Chicken Pox Y Autism Spectrum Disorder (ASD) N Gynecological History Statement/Question Response Date of Last Pap Smear 04/19/2013 Date of Last Colonoscopy 05/19/2019 Most Recent Mammogram 10/28/2023 Most Recent Bone Density 11/11/2018 Obstetrics History GPAL:G 0 P 0 0 0 0 Immunizations Vaccine Type Date Status Note Provider Name and Address Organization Details Recorded Time Influenza, split virus, trivalent, preservative 015 completed Kayleenanne kinsey [facility] 03/14/2021 10:09:11 zoster recombinant 018 [facility] 13:05:16 Influenza, split virus, quadrivalent, preservative 020 completed Kayleen Ibrahim [facility] 03/14/2021 10:09:11 Influenza, split virus, trivalent, preservative 013 [facility]/2022 13:04:01 COVID-19, mRNA, LNP-S, PF, 30 mcg/0.3 mL dose 021 [facility]2022 13:04:01 COVID-19, mRNA, LNP-S, PF, 30 mcg/0.3 mL dose 021 [facility]/02/2022 13:04:01 Influenza, split virus, trivalent, preservative 014 [facility]22 13:04:01 COVID-19, mRNA, LNP-S, PF, 30 mcg/0.3 mL dose 021 completed [facility]/2022 13:04:01 zoster recombinant 020 completed JAIRO Monson, [facility] 03/02/2022 13:06:12 Influenza, high-dose, trivalent, PF 018 completed JAIRO Monson, [facility] 08/14/2022 12:53:06 Influenza, high-dose, trivalent, PF 016 completed JAIRO Monson, [facility] 08/14/2022 12:53:06 Influenza, high-dose, quadrivalent, PF 021 completed JAIRO Monson, [facility] 08/14/2022 12:53:06 Influenza, high-dose, trivalent, PF 019 completed JAIRO Monson, [facility] 08/14/2022 12:53:06 Influenza, high-dose, trivalent, PF 017 completed JAIRO Monson, [facility] 08/14/2022 12:53:06 COVID-19, mRNA, LNP-S, PF, 30 mcg/0.3 mL dose 021 completed JAIRO Monson, [facility] 08/14/2022 12:53:06 Influenza, adjuvanted, quadrivalent, PF 022 completed JARIO Monson, [facility] 08/14/2022 12:53:07 Pneumococcal conjugate PCV 13 015 completed JAIRO Monson, [facility] 08/14/2022 12:53:07 COVID-19, mRNA, LNP-S, PF, 30 mcg/0.3 mL dose 021 completed JAIRO Monson, [facility] 08/14/2022 12:53:07 COVID-19, mRNA, LNP-S, bivalent, PF, 30 mcg/0.3 mL dose 023 completed JAIRO Carolina, [facility] 03/18/2023 15:53:15 Influenza, adjuvanted, quadrivalent, PF 023 completed JAIRO Kaplan, [facility] 09/30/2023 10:51:39 COVID-19, mRNA, LNP-S, PF, dinora-sucrose, 30 mcg/0.3 mL 023 completed JAIRO Kaplan, [facility] 09/30/2023 10:51:39 COVID-19, mRNA, LNP-S, PF, dinora-sucrose, 30 mcg/0.3 mL 024 completed JAIRO Hamlin, [facility] 08/30/2024 13:50:30 Influenza, high-dose, trivalent, PF 024 completed JAIRO Hamlin, [facility] 08/30/2024 13:50:30 zoster live 017 cancelled patient objection Not Available [facility] 11/18/2019 02:21:33 Influenza, split virus, trivalent, preservative 012 completed Kayleen Ibrahim null, [facility] 03/14/2021 10:09:11 pneumococcal polysaccharide PPV23 012 completed Kayleen Ibrahim null, [facility] 03/14/2021 10:09:11 Tdap 013 completed Kayleen Ibrahim null, [facility] 03/14/2021 10:09:11 zoster recombinant 019 cancelled patient objection Not Available [facility] 11/18/2019 02:22:20 Td (adult), 2 Lf tetanus toxoid, preservative free, adsorbed 023 completed Dannie Moore MD [address] [address], [place], [address], [facility] 04/05/[place]23 17:05:41 Past Encounters Encounter ID Performer Location Encounter Start Date Encounter Closed Date Diagnosis/Indication Diagnosis SNOMED-CT Code Diagnosis ICD10 Code [id number] [place] Main Main Office [address] [facility] [address] [facility] JAIRO HOFF [id number] 08/30/2024 13:41:27 08/30/2024 14:16:13 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 eye redness that she has had twice before,she has been treating it with eye drops she has on hand. This is her 3rd episode in the same eye. Denies fever, chills. Concepción kinsey [place] - [facility] 09/12/2024 10:38:34 OBGyn Episode No OBEpisode recorded.
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
== END 2024-10-17 13:20 | disposition home or self-care (01) ==
LOC: HO.HOP 11:58
PROVIDERS: PCP Pediatrics; Visit Provider Psychiatry & Neurology Psychiatry
DX: F33.42 Major depressive disorder, recurrent, in full remission (principal); I10 Essential (primary) hypertension
CPT/HCPCS: 90833; 99213

== ENCOUNTER → 2024-10-17 11:58 | Outpatient (BNVA) | payer MEDICARE, SELFPAY | PROVIDERS: PCP Pediatrics; Visit Provider Psychiatry & Neurology Psychiatry | DX: F33.42 Major depressive disorder, recurrent, in full remission (principal); I10 Essential (primary) hypertension | CPT/HCPCS: 99212 ==

== ENCOUNTER 2025-01-30 14:29 | Outpatient (AMB) | payer MEDICARE, SELFPAY ==
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
--- OUTSIDE RECORDS SUMMARY | 2025-01-30 17:19 | XMS_ITS | Data Portability ---
Author Organization 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 Plan of Treatment Reminders Order Date Submit Date Provider Last Modified By Organization Details Last Modified Time Details Appointments RECHECK 15 2024 01:00P Lore Amos PA-C Not available Not available Not available Lab None recorded . Referral None recorded . Procedures None recorded . Surgeries None recorded . Imaging XR, hip + pelvis, unilater al, 2 or 3 view 2023 024 [email or web address] [facility], [address], [place] [address], [place], [address], 09/25/2024 12:47:16 Medication Orders None recorded . Patient TargetsNo targets recorded. Patient InstructionsNo instructions recorded. Reason for Referral None Reported. Results Created Date Observation Date Name Description Value Unit Range Abnormal Flag Note LastModifiedBy Organization Detail LastModifiedTime 08/30/20 24 08/30/2024 XR, hip + pelvi s, unila teral , 2 or 3 view http:/ [email or web address] ?Encry pted=s hAaTro YD8dLq bEUv6g %2BXZw aYqtaq 0bqfl% 2Fg9IQ a4ajBk vP9nXo QUaueC m3YtLR FvZlgJ JJ8mAn HZtai3 0c6464 AC0Kqa H6CUaq kKiQtr MwF INTERFACE [facility] [address], [place], [address], 08/30/2024 17:49:10 08/30/20 24 08/30/2024 XR, hip + pelvi s, unila teral , 2 or 3 view http:/ [email or web address] ?Encry pted=s hAaTro YD8dLq bEUv6g %2BXZw aYqtaq 0bqfl% 2Fg9IQ a4ajBk vP9nXo QUaueC m3YtLR FvZlgJ JJ8mAn HZtai3 2a5188 AC0Kqa H6CUaq kKiQtr MwF INTERFACE [facility] [address], [place], [address], 08/30/2024 17:49:11 Result Notes None recorded. Problems Name Problem SNOMED Code Status Onset Date Resolution Date Notes Provider Name and Address Organization Details Recorded Time No complaints [id number] Active Status : 'A'; Not Available [facility] 4 09:25:18 Problem Notes None recorded. Procedures Surgical History Date Name Laterality Status Provider Name and Address Organization Details Recorded Time 5 Hip Kenalog 1cc Injection, L/R completed Levar Quijano PA-C [address] [facility], [place], [address], [facility] 12/12/2024 15:12:18 4 Hip Kenalog 1cc Injection, L/R completed Jerrod Amos PA-C [address] [facility], [place], [address], [facility] 08/30/2024 13:19:02 4 Hip Kenalog 1cc Injection, L/R geovanna Amos PA-C [address], [place], [address], [facility] 04/27/2024 07:53:41 4 Sports Shoulder 4&1 completed Jerrod Amos PA-C [address], [place], [address], [place] [facility] 04/27/2024 07:53:29 Imaging Results Imaging Date Name Status LastModified by Organiz ation Details LastModified Time 08/30/2024 XR, hip + pelvis, unilateral , 2 or 3 view completed INTERFACE [facility] [address], [place], [address], 08/30/2024 17:49:10 08/30/2024 XR, hip + pelvis, unilateral , 2 or 3 view completed [facility]FACE [facility] [address], [place], [address], 08/30/2024 17:49:11 Procedure Notes None recorded. Medical Equipment None Reported. Allergies Allergen ID Allergen Name Allergen Category Reaction Reaction Severity Criticality Documentation Date Start Date Code Code System Note Provider Name and Address Organization Details Recorded Time 024918 Demerol medicatio n Not available Not available Not available 01/03/20242010 73086 1 RxNorm Aller gyRea ction : 'Skin React ion'; Not Available [facility] 15:26:59 Medications Name Sig Start Date Stop Date Status Note LastModified by Organization Details LastModified Time fluconazole 150 mg tablet PLEASE SEE ATTACHED FOR DETAILED DIRECTION S 08/30 completed Not Available Not Available Not Available metoprolol succinate ER 100 mg tablet,exte nded release 24 hr active Not Available Not Available Not Available moxifloxaci n 400 mg tablet TAKE 1 TABLET BY MOUTH EVERY DAY FOR 7 DAYS 08/30 completed Not Available Not Available Not Available doxepin 10 mg capsule 08/30 completed Not Available Not Available Not Available butalbital- acetaminoph en-caffeine 50 mg-325 mg-40 mg tablet active Not Available Not Available Not Available levothyroxi ne 100 mcg tablet TAKE 1 TABLET BY MOUTH EVERY DAY active Not Available Not Available No t Available trazodone 100 mg tablet active Not Available Not Available Not Available benzonatate 100 mg capsule TAKE 1 CAPSULE BY MOUTH 3 TIMES A DAY FOR 14 DAYS NEEDED FOR COUGH 08/30 completed Not Available Not Available Not Available simvastatin 20 mg tablet active Not Available Not Available Not Available fluoxetine 10 mg capsule TAKE 1 CAPSULE BY MOUTH EVERY DAY active Not Available Not Available No t Available omeprazole 20 mg capsule,del ayed release active Not Available Not Available Not Available lorazepam 1 mg tablet TAKE 1/2 TABLET 2 TIMES A DAY NEEDED FOR ANXIETY FOR 30 DAYS active Not Available Not Available No t Available levothyroxi ne 112 mcg tablet TAKE 1 TABLET BY MOUTH EVERY DAY 08/30 completed Not Available Not Available Not Available oxycodone 5 mg tablet TAKE 1 TABLET BY MOUTH EVERY 6 HOURS FOR 3 DAYS NEEDED FOR PAIN 08/30 completed Not Available Not Available Not Available bupropion HCl XL 300 mg 24 hr tablet, extended release active Not Available Not Available Not Available Butalbital- APAP-Caffei ne Butalbita l-APAP-Ca ffeine 50-325-40 MG Tablet 08/30 completed Statu s: 'Curr ent'; Not Available Not Available Not Available Tums Tums 500MG Tablet Chewable 01/14 completed Statu s: 'Disc ontin ued'; Not Available Not Available Not Available Vitals Date Recorded Body height Body mass index (BMI) Body weight Provider Name and Address Organization Details Last Updated DateTime 08/30/2024 154.94 cm 28.7 kg/m2 63103.04 g MARY OLIVA [facility] 08/30/2024 17:31:57 Date Recorded Body height Provider Name an d Address Organization Details Last Updated DateTime 12/12/2024 154.94 cm PABLO LAGUERRE [facility] 12/12/2024 13:59:12 Social History None recorded. Functional Status None recorded. Mental Status None recorded. Family History Nothing Reported. Medical History Condition Response Allergies/Hayfever N Coronary Artery Disease N Breathing or lung disorders N Anxiety/Depression N Emphysema N Nerve Disorders N Thyroid Problems Y COPD N Pacemaker N Kidney/Bladder Problems N Anemia N Vascular Disease N Heart Trouble N Heart Attack ([place]) N Gastrointestinal Disease N Cholesterol N Diabetes N Autoimmune disease N Bleeding Disorder N Orthotics N Seizures/Epilepsy N Arthritis N Blood Clot N AIDS/HIV N Congestive Heart Failure (CHF) N Acid Reflux (GERD) N Cancer N Stroke N Asthma N Circulation Problems N Peripheral Vascular Disease N Sleep Apnea N Hepatitis N Heart Disease N Rheumatoid Arthritis N Pulmonary Embolism N Arrhythmia N Headaches N Fibromyalgia N Hypertension N Osteoporosis N Gynecological HistoryNo gynecological history recorded. Obstetrics History GPAL:G 0 P 0 0 0 0 Past Encounters Encounter ID Performer Location Encounter Start Date Encounter Closed Date Diagnosis/Indication Diagnosis SNOMED-CT Code Diagnosis ICD10 Code Diagnosis Note [id number] Jerrod Amos PA-C [facility] [address] [place] [address] 04/27/2024 10:59:30 05/24/2024 13:08:16 Trochanteric bursitis of right hip [id number] 65548 M70.61 Tendinitis of right rotator cuff [id number] 0368640 M67.460 [id number] Jerrod Amos PA-C [facility] [address] [place] [address] 08/30/2024 17:15:12 09/25/2024 12:47:16 Trochanteric bursitis of right hip [id number] 13453 M70.61 [id number] Levar Quijano PA-C [facility] [address] [place] [address] 12/12/2024 13:51:57 12/28/2024 15:25:06 Trochanteric bursitis of right hip [id number] 64949 M70.61 You have been provided with a cortisone injection in order to reduce the pain and inflammati on that you are experienci ng. The injection consists of two medication s. Cortisone (an anti-infla mmatory that will take 48-72 hours to take effect) and Lidocaine (a numbing agent that will last 2-3 hours). Please note that not everyone will have a lasting response following the injection. PATIENT INSTRUCTIO NSOnce the Lidocaine wears off, you may have an increase in your pain. I recommend icing the affected area for 20 minutes 3-4 times per day.It is recommende d that you refrain from any high level activities using the joint or limb that was injected for approximat mejia 24-48 hours. Normal day-to-day activities are generally not a problem.PO SSIBLE SIDE EFFECTSInd ividuals with dark complexion s may experience some skin discolorat ion locally at the site of the injection. There is the possibilit y of an increase in discomfort within 48 hours following the injection. This is called a ? f lare? . To help minimize the chances of this, please see the post-injec tion instructio ns above.Ther e is a less than 1% chance of an infection. If you notice any signs of infection (redness, warmth, drainage, fever greater than 100 degrees) please call our office or contact us through the portal [facility]. Health Concerns Section Related Observation LastModified by Organization Detai ls LastModified Time None Recorded Concern Status LastModified by Organization Details LastModified Time None Recorded Advance Directives Directive None Recorded Payers Encounter Date Sequence Insurance Name Policy Number Policy Nieto Covered Member ID Nieto Member ID Guarantor Name 08/30/2024 1 [employer] MED[employer]ARE ADVANTAGE PLAN (MEDICARE REPLACEMENT HMO) [id number] Amy Alcantar [id number] Amy Alcantar 12/12/2024 2 [place] [id number] Amy Alcantar [id number] Amy Alcantar 12/12/2024 1 [place] [employer] Amy Alcantar [id number] Amy Alcantar Notes Date Note Type Note Provider Name and Address Organization Details Recorded Time 04/27/2024 text/html I am seeing the patient today under the supervision of {{Jennifer* Kris}} who was available but who did not see the patient. Reason For Visit The patient presents today for follow-up. Has known trochanteric bursitis of the {{left right*}} hip. Has had previous cortisone injection which gave relief until recently. Has had no recent trauma, no fevers or chills, no neurovascular changes. Presents today for further evaluation. Past Medical/Surgical History Past medical history is reviewed per intake sheet. Physical Findings On physical examination, the patient is well appearing and in no apparent distress, alert and oriented x3. Gait is symmetric. Physician examination of the {{left right*}} hip reveals the skin to be intact, normal musculature, continued tenderness on palpation over the greater trochanter. No pain with range of motion of the hip, has full range of motion, no crepitus noted with range of motion. No significant pain with straight leg raise. Assessment Symptomatic trochanteric bursitis of the {{left right*}} hip. Plan I reviewed the findings with the patient, discussed different treatment options. The patient wishes to proceed with cortisone injection. Prior to giving injection, does understand the risks. Under sterile technique, given a cortisone injection with 4 cc 1/4 percent Marcaine, 40 mgs Kenalog. Tolerated this well. Monitor the effects and follow-up as needed. Problem #2 Problem #2 Reason For Visit Patient comes to the office with know rotator cuff tendonitis. The patient has done well with conservative management for their {{right* Left}} shoulder pain. Has had increasing discomfort over the past several weeks without injury. Pain is generalized about the shoulder. Off and on discomfort is noted at night. Past Medical/Surgical History Current medications per intake sheet. Physical Findings The patient is well appearing, in no apparent distress, alert and oriented to person, place and time. Gait is symmetric. No significant swelling, warmth or erythema about either shoulder. There is mild tenderness to palpation about the shoulder. Active range of motion of the shoulder is near full with mild to moderate pain through mid range manipulations. 4/5 strength of the shoulder, but the rotator cuff seems to fire well. Good stability of the shoulder. Peripheral, vascular, lymphatic examination, skin, neurologic coordination, reflexes, sensation are within normal limits. Assessment Rotator cuff tendonitis of the {{right* Left}} shoulder. plan The patient has done well with conservative management in regards to the shoulder. Continued conservative management recommended. Moderating activities with the upper extremity recommended also. Injection was performed into the subacromial space. Injected 80mg of Kenalog and 8cc of 1/4% Marcaine under sterile conditions into the left shoulder subacromial space. Patient tolerated the injection well. Moderating activities with the upper extremity recommended. The patient will follow up prn. Jerrod Amos PA-C [address] [place], [place] [address], [place], [address], [facility] 04/27/2024 12:41:15 08/30/2024 text/html I am seeing the patient today under the supervision of {{Jennifer* Kris}} who was available but who did not see the patient. Reason For VisitThe patient presents today for follow-up. Has known trochanteric bursitis of the {{left right*}} hip. Has had previous cortisone injection which gave relief until recently. Has had no recent trauma, no fevers or chills, no neurovascular changes. Presents today for further evaluation. Past Medical/Surgical HistoryPast medical history is reviewed per intake sheet. Physical Findings On physical examination, the patient is well appearing and in no apparent distress, alert and oriented x3. Gait is symmetric. Physician examination of the {{left right*}} hip reveals the skin to be intact, normal musculature, continued tenderness on palpation over the greater trochanter. No pain with range of motion of the hip, has full range of motion, no crepitus noted with range of motion. No significant pain with straight leg raise. AssessmentSymptomat ic trochanteric bursitis of the {{left right*}} hip. Plan I reviewed the findings with the patient, discussed different treatment options. The patient wishes to proceed with cortisone injection. Prior to giving injection, does understand the risks. Under sterile technique, given a cortisone injection with 4 cc 1/4 percent Marcaine, 40 mgs Kenalog. Tolerated this well. Monitor the effects and follow-up as needed. Jerrod Amos PA-C [address], [place], [address], [facility] 08/31/2024 12:20:23 12/12/2024 text/html I am seeing the patient today under the supervision of {{Dr. Jennifer Do* Dr. Olena Godfrey}} who was available but who did not see the patient. The patient presents today for follow-up. Has known trochanteric bursitis of the {{Left Right* Bi-la teral}} hip. Has had previous cortisone injection which gave relief until recently. Has had no recent trauma, no fevers or chills, no neurovascular changes. Presents today for further evaluation. PAST MEDICAL/SURGICAL HISTORY Past medical history is reviewed per intake sheet. PHYSICAL FINDINGS On physical examination, the patient is well appearing and in no apparent distress, alert and oriented x3. Gait is symmetric. Examination of the hip reveals the skin to be intact, normal musculature, continued tenderness on palpation over the greater trochanter. No pain with range of motion of the hip, has full range of motion, no crepitus noted with range of motion. No significant pain with straight leg raise. ASSESSMENT Symptomatic trochanteric bursitis of the {{Left Right* Bi-la teral}} hip. PLAN I reviewed the findings with the patient, discussed different treatment options which included medications physical therapy and injections The patient wishes to proceed with cortisone injection. Please see procedure note. Monitor the effects and follow-up as directed. Levar Quijano PA-C [address], [place], [address], [facility] 12/12/2024 15:13:12 OBGyn Episode No OBEpisode recorded.
--- OUTSIDE RECORDS SUMMARY | 2025-01-30 17:20 | XMS_ITS | Data Portability ---
Author Organization [facility], Main Office Address [address] [facility] [address] [place] [id number] Care Team Providers Care Computer Systems Information Director Name Role Phone DANNIE MOORE Primary Care Provider BETHEL SAMUEL Drug And Alcohol Counsellor WYATT GAYLE Security Systems Administrator KONRAD HDADAD Foreign Diplomat [phone] MELE FREGOSO Psychiatrist SANDRA AWAD Hand Surgeon JOSHUA ROBERTS Orthopedic Surgeon RIZWAN DANIELLE Stationary Engineer Supervisor YUMIKO RAYMOND Cruise Agent GAMALIEL MEIER General Surgeon TRISTNE QUEZADA Supervisor Braiding Assessment No assessment recorded. Plan of Treatment Reminders Order Date Submit Date Provider Last Modified By Organization Details Last Modified Time Details Appointments [id number] 2024 01:00P Lore Moore MD Not available Not available Not available Lab rapid flu (A+B) 2024 025 TANJA In-Office Order, Internal Use Only DO Not Attach Compendium DO Not Attach Compendium, Do Not Delete/merge, [id number] 01/16/2025 15:09:11 rapid SARS CoV 2 Ag, QL IA, respirato ry specimen 2024 025 TANJA In-Office Order, Internal Use Only DO Not Attach Compendium DO Not Attach Compendium, Do Not Delete/merge, [id number] 01/16/2025 15:02:51 HbA1c (hemoglob in A1c), blood 2023 024 TANJA [facility] (Centralized Electronic Ordering - All Locations), Patient Can Go To The Location Of Their Choice, [address] 10/11/2024 06:08:20 CMP, serum or plasma 2023 024 TANJA [facility] ([facility]ized [facility] Ordering - All Locations), Patient Can Go To The Location Of Their Choice, [address] 10/11/2024 06:08:20 TSH + free T4, serum 2023 024 TANJA [facility] (Centralized Electronic Ordering - All Locations), Patient Can Go To The Location Of Their Choice, [id number] 10/11/2024 06:08:18 Referral nutrition ist/dieti tex referral 2023 024 Not available 06/01/2024 15:19:44 Procedures None recorded. Surgeries None recorded. Imaging None recorded. Medication Orders prednison e 20 mg tablet 2024 025 [facility] #[id number], [address] [place] [address], [address], 01/28/2025 05:01:23 acetamino phen 300 mg-codein e 30 mg tablet 2024 025 [id number] [address] [place] [address], [address], 01/28/2025 05:01:23 erythromy rony 5 mg/gram (0.5 %) eye ointment 2023 024 [id number], [address] [place], [address], 12/05/2024 13:18:38 Patient TargetsNo targets recorded. Patient Instructions Encounter Date Encounter Id Patient Instructions Last Modified By Organization Details Last Modified Time 12/21/2023 [id number] perforated eardrum: care instructions akhil Not available 12/21/2023 12:58:51 06/01/2024 [id number] advance care planning: care instructions fidelina Not available 06/01/2024 15:08:57 high cholesterol: care instructions awychowski Not available 06/01/2024 15:08:57 preventing falls: care instructions awychowski Not available 06/01/2024 15:08:57 well visit, over 65: care instructions awychowski Not available 06/01/2024 15:08:57 When You Want to Lose Weight: Care Instructions awychowski Not available 06/01/2024 15:08:56 Nutrition Referral and Weight Management Follow-up Information awychowski Not available 06/01/2024 15:08:57 01/16/2025 [id number] cough: care instructions acenneraheidyo Not available 01/16/2025 17:05:06 Reason for Referral Plate Preparer/dietitian Refer ral for Body mass index 25-29 - overweight Referring Physician: Dannie Moore, Family Medicine, Encounter Date: 06/01/2024 Results Created Date Observation Date Name Description Value Unit Range Abnormal Flag Note LastModifiedBy Organization Detail LastModifiedTime 01/25/20 24 01/26/2024 COMP. METAB OLIC PANEL (14) glucose 105 mg/dL 70-99 above high normal Not Available [facility] ([facility]) [address] [place], [address], 01/26/2024 10:06:30 01/25/20 24 01/26/2024 COMP. METAB OLIC PANEL (14) BUN 15 mg/dL 8-27 Not Available [facility] ([facility]) [address] [place], [address], 01/26/2024 10:06:30 01/25/20 24 01/26/2024 COMP. METAB OLIC PANEL (14) creatinine 1.01 mg/dL 0.57-1 .00 above high normal Not Available [facility] ([facility]) [address] [place], [address], 01/26/2024 10:06:30 01/25/20 24 01/26/2024 COMP. METAB OLIC PANEL (14) eGFR 58 mL/mi n/1.7 3 >59 below low normal Not Available [facility] ([facility]) [address] [facility] [place], [address], 01/26/2024 10:06:30 01/25/20 24 01/26/2024 COMP. METAB OLIC PANEL (14) BUN/creatini ne ratio 15 12-28 Not Available [facility] ([facility]) [address] [facility] [place], [address], 01/26/2024 10:06:30 01/25/20 24 01/26/2024 COMP. METAB OLIC PANEL (14) sodium 142 mmol/ L 134-14 4 Not Available [facility] ([facility]) [address] [facility], [place], [address], 01/26/2024 10:06:30 01/25/20 24 01/26/2024 COMP. METAB OLIC PANEL (14) potassium 4.4 mmol/ L 3.5-5. 2 Not Available [facility] ([facility]) [address] [facility], [place], [address], 01/26/2024 10:06:30 01/25/20 24 01/26/2024 COMP. METAB OLIC PANEL (14) chloride 102 mmol/ L 96-106 Not Available [facility] ([facility]) [address] [facility], [place], [address], 01/26/2024 10:06:30 01/25/20 24 01/26/2024 COMP. METAB OLIC PANEL (14) anion gap 14.0 mmol/ L 10.0-1 8.0 Not Available [facility] ([facility]) [address] [facility] [place], [address], 01/26/2024 10:06:30 01/25/20 24 01/26/2024 COMP. METAB OLIC PANEL (14) carbon dioxide, total 26 mmol/ L 20-29 Not Available [facility] ([facility]) [address], [place], [address], 01/26/2024 10:06:30 01/25/20 24 01/26/2024 COMP. METAB OLIC PANEL (14) calcium 9.6 mg/dL 8.7-10 .3 Not Available [facility] ([facility]) [address], [place], [address], 01/26/2024 10:06:30 01/25/20 24 01/26/2024 COMP. METAB OLIC PANEL (14) protein, total 6.6 g/dL 6.0-8. 5 Not Available [facility] ([facility] [address] [facility] [place], [address], 01/26/2024 10:06:30 01/25/20 24 01/26/2024 COMP. METAB OLIC PANEL (14) albumin 4.6 g/dL 3.8-4. 8 Not Available [facility] ([facility]) [address], [place], [address], 01/26/2024 10:06:30 01/25/20 24 01/26/2024 COMP. METAB OLIC PANEL (14) globulin, total 2.0 g/dL 1.5-4. 5 Not Available [facility] ([facility] [address] [facility] [place], [address], 01/26/2024 10:06:30 01/25/20 24 01/26/2024 COMP. METAB OLIC PANEL (14) A/G ratio 2.3 1.2-2. 2 above high normal Not Available [facility] ([facility]) [address] [facility] [place], [address], 01/26/2024 10:06:30 01/25/20 24 01/26/2024 COMP. METAB OLIC PANEL (14) bilirubin, total 0.3 mg/dL 0.0-1. 2 Not Available [facility] ([facility]) [address] [facility], [place], [address], 01/26/2024 10:06:30 01/25/20 24 01/26/2024 COMP. METAB OLIC PANEL (14) alkaline phosphatase 92 IU/L 44-121 Not Available [facility] ([facility]) [address] [facility], [place], [address], 01/26/2024 10:06:30 01/25/20 24 01/26/2024 COMP. METAB OLIC PANEL (14) AST (SGOT) 18 IU/L 0-40 Not Available [facility] ([facility]) [address] [facility], [place], [address], 01/26/2024 10:06:30 01/25/20 24 01/26/2024 COMP. METAB OLIC PANEL (14) ALT (SGPT) 16 IU/L 0-32 Not Available [facility] ([facility]) [address] [facility], [place], [address], 01/26/2024 10:06:30 01/25/20 24 01/26/2024 URINA LYSIS , COMPL ETE specific gravity 1.020 1.005- 1.030 Not Available [facility] ([facility]) [address] [facility], [place], [address], 01/26/2024 10:06:31 01/25/20 24 01/26/2024 URINA LYSIS , COMPL ETE pH 6.5 5.0-7. 5 Not Available [facility] ([facility]) [address] [facility], [place], [address], 01/26/2024 10:06:31 01/25/20 24 01/26/2024 URINA LYSIS , COMPL ETE urine-color YELLOW yellow Not Available [facility] ([facility]) [address] [facility], [place], [address], 01/26/2024 10:06:31 03/26/01/26/2024 URINA LYSIS , COMPL ETE appearance CLEAR clear Not Available [facility] ([facility]) [address] [facility], [place], [address], 01/26/2024 10:06:31 01/25/20 24 01/26/2024 URINA LYSIS , COMPL ETE WBC esterase NEGATI VE negati ve Not Available [facility] ([facility]) [address] [facility], [place], [address], 01/26/2024 10:06:31 01/25/20 24 01/26/2024 URINA LYSIS , COMPL ETE protein NEGATI VE negati ve/tra ce Not Available [facility] ([facility]) [address] [facility], [place], [address], 01/26/2024 10:06:31 01/25/20 24 01/26/2024 URINA LYSIS , COMPL ETE glucose NEGATI VE negati ve Not Available [facility] ([facility]) [address] [facility], [place], [address], 01/26/2024 10:06:31 01/25/20 24 01/26/2024 URINA LYSIS , COMPL ETE ketones NEGATI VE negati ve Not Available [facility] ([facility]) [address] [facility], [place], [address], 01/26/2024 10:06:31 01/25/20 24 01/26/2024 URINA LYSIS , COMPL ETE occult blood NEGATI VE negati ve Not Available [facility] ([facility]) [address] [facility], [place], [address], 01/26/2024 10:06:31 01/25/20 24 01/26/2024 URINA LYSIS , COMPL ETE bilirubin NEGATI VE negati ve Not Available [facility] ([facility]) [address] [place], [address], 01/26/2024 10:06:31 01/25/20 24 01/26/2024 URINA LYSIS , COMPL ETE urobilinogen ,semi-qn 0.2 mg/dL 0.2-1. 0 Not Available [facility] ([facility]) [address] [facility], [place], [address], 01/26/2024 10:06:31 01/25/20 24 01/26/2024 URINA LYSIS , COMPL ETE nitrite, urine NEGATI VE negati ve Not Available [facility] ([facility]) [address] [facility], [place], [address], 01/26/2024 10:06:31 01/25/20 24 01/26/2024 URINA LYSIS , COMPL ETE microscopic examination COMMEN T Micro scopi c follo ws if indic ated. Not Available [facility] ([facility]) [address] [facility], [place], [address], 01/26/2024 10:06:31 01/25/20 24 01/26/2024 URINA LYSIS , COMPL ETE microscopic examination SEE BELOW: Micro scopi c was indic ated and was perfo rmed. Not Available [facility] ([facility]) [address] [facility], [place], [address], 01/26/2024 10:06:31 01/25/20 24 01/26/2024 URINA LYSIS , COMPL ETE WBC NONE SEEN /hpf 0 - 5 Not Available [facility] ([facility]) [address] [facility], [place], [address], 01/26/2024 10:06:31 01/25/20 24 01/26/2024 URINA LYSIS , COMPL ETE RBC 0-2 /hpf 0 - 2 Not Available [facility] ([facility]) [address] [place], [address], 01/26/2024 10:06:31 01/25/20 24 01/26/2024 URINA LYSIS , COMPL ETE epithelial cells (non renal) 0-10 /hpf 0 - 10 Not Available [facility] ([facility]) [address] [facility], [place], [address], 01/26/2024 10:06:31 01/25/20 24 01/26/2024 URINA LYSIS , COMPL ETE epithelial cells (renal) NETWORK CONTRACT MANAGER Not Available [facility] ([facility]) [address] [facility], [place], [address], 01/26/2024 10:06:31 01/25/20 24 01/26/2024 URINA LYSIS , COMPL ETE casts NONE SEEN /lpf none seen Not Available [facility] ([facility]) [address] [facility], [place], [address], 01/26/2024 10:06:31 01/25/20 24 01/26/2024 URINA LYSIS , COMPL ETE cast type NETWORK CONTRACT MANAGER Not Available [facility] ([facility]) [address] [facility], [place], [address], 01/26/2024 10:06:31 01/25/20 24 01/26/2024 URINA LYSIS , COMPL ETE crystals NETWORK CONTRACT MANAGER Not Available [facility] ([facility]) [address] [facility], [place], [address], 01/26/2024 10:06:31 01/25/20 24 01/26/2024 URINA LYSIS , COMPL ETE crystal type NETWORK CONTRACT MANAGER Not Available [facility] ([facility]) [address] [facility], [place], [address], 01/26/2024 10:06:31 01/25/20 24 01/26/2024 URINA LYSIS , COMPL ETE mucus threads NETWORK CONTRACT MANAGER Not Available [facility] ([facility]) [address] [facility], [place], [address], 01/26/2024 10:06:31 01/25/20 24 01/26/2024 URINA LYSIS , COMPL ETE bacteria NONE SEEN none seen/f ew Not Available [facility] ([facility]) [address] [facility], [place], [address], 01/26/2024 10:06:31 01/25/20 24 01/26/2024 URINA LYSIS , COMPL ETE yeast NETWORK CONTRACT MANAGER Not Available [facility] ([facility]) [address] [facility], [place], [address], 01/26/2024 10:06:31 01/25/20 24 01/26/2024 URINA LYSIS , COMPL ETE trichomonas NETWORK CONTRACT MANAGER Not Available [facility] ([facility]) [address] [facility], [place], [address], 01/26/2024 10:06:31 01/25/20 24 01/26/2024 URINA LYSIS , COMPL ETE comment NETWORK CONTRACT MANAGER Not Available [facility] ([facility]) [address] [facility], [place], [address], 01/26/2024 10:06:31 01/25/20 24 01/26/2024 LP+NO N-HDL SANA STERO L cholesterol, total 172 mg/dL 100-19 9 Not Available [facility] ([facility]) [address] [facility], [place], [address], 01/26/2024 10:06:33 01/25/20 24 01/26/2024 LP+NO N-HDL SANA STERO L triglyceride s 108 mg/dL 0-149 Not Available [facility] ([facility]) [address] [place], [address], 01/26/2024 10:06:33 01/25/20 24 01/26/2024 LP+NO N-HDL SANA STERO L HDL cholesterol 64 mg/dL >39 Not Available [facility] ([facility]) [address] [facility], [place], [address], 01/26/2024 10:06:33 01/25/20 24 01/26/2024 LP+NO N-HDL SANA STERO L VLDL cholesterol nicolas 19 mg/dL 5-40 Not Available [facility] ([facility]) [address] [facility], [place], [address], 01/26/2024 10:06:33 01/25/20 24 01/26/2024 LP+NO N-HDL SANA STERO L LDL chol calc ([facility]) 89 mg/dL 0-99 Not Available [facility] ([facility]) [address] [facility], [place], [address], 01/26/2024 10:06:33 01/25/20 24 01/26/2024 LP+NO N-HDL SANA STERO L non-HDL cholesterol 108 mg/dL 0-129 Not Available [facility] ([facility]) [address] [facility], [place], [address], 01/26/2024 10:06:33 01/25/20 24 01/26/2024 LP+NO N-HDL SANA STERO L comment: NETWORK CONTRACT MANAGER Not Available [facility] ([facility]) [address] [facility], [place], [address], 01/26/2024 10:06:33 01/25/20 24 01/26/2024 HEMOG LOBIN A1C hemoglobin A1C 5.9 % 4.8-5. 6 above high normal Predi abete s: 5.7 - 6.4 Diabe sachin: >6.4 Glyce amie contr ol for adult s with diabe sachin: <7.0 Not Available [facility] ([facility]) [address] [facility], [place], [address], 01/26/2024 10:06:33 01/25/20 24 01/26/2024 PHOSP HORUS phosphorus 4.1 mg/dL 3.0-4. 3 Not Available [facility] ([facility]) [address] [facility], [place], [address], 01/26/2024 10:06:34 01/25/20 24 01/26/2024 PTH, INTAC T PTH, intact 36 pg/mL 15-65 Not Available [facility] ([facility]) [address] [place], [address], 01/26/2024 10:06:35 10/10/20 24 10/11/2024 TSH+F REE T4 TSH 1.270 uIU/m L 0.450- 4.500 normal Not Available [facility] ([facility]) [address] [place], [address], 10/11/2024 06:08:18 10/10/20 24 10/11/2024 TSH+F REE T4 T4,free(dire ct) 1.61 NG/dL 0.82-1 .77 normal Not Available [facility] ([facility]) [address] [place], [address], 10/11/2024 06:08:18 10/10/20 24 10/10/2024 COMP. METAB OLIC PANEL (14) glucose 117 mg/dL 70-99 above high normal Not Available [facility] ([facility]) [address] [place], [address], 10/11/2024 06:08:19 10/10/20 24 10/10/2024 COMP. METAB OLIC PANEL (14) BUN 17 mg/dL 8-27 normal Not Available [facility] ([facility]) [address] [place], [address], 10/11/2024 06:08:19 10/10/20 24 10/10/2024 COMP. METAB OLIC PANEL (14) creatinine 1.05 mg/dL 0.57-1 .00 above high normal Not Available [facility] ([facility]) [address] [place], [address], 10/11/2024 06:08:19 10/10/20 24 10/10/2024 COMP. METAB OLIC PANEL (14) eGFR 55 mL/mi n/1.7 3 >59 below low normal Not Available [facility] ([facility]) [address] [place], [address], 10/11/2024 06:08:19 10/10/20 24 10/10/2024 COMP. METAB OLIC PANEL (14) BUN/creatini ne ratio 16 12-28 normal Not Available [facility] ([facility]) [address] [place], [address], 10/11/2024 06:08:19 10/10/20 24 10/10/2024 COMP. METAB OLIC PANEL (14) sodium 143 mmol/ L 134-14 4 normal Not Available [facility] ([facility]) [address] [place], [address], 10/11/2024 06:08:19 10/10/20 24 10/10/2024 COMP. METAB OLIC PANEL (14) potassium 4.7 mmol/ L 3.5-5. 2 normal Not Available [facility] ([facility]) [address] [place], [address], 10/11/2024 06:08:19 10/10/20 24 10/10/2024 COMP. METAB OLIC PANEL (14) chloride 103 mmol/ L 96-106 normal Not Available [facility] ([facility]) [address] [place], [address], 10/11/2024 06:08:19 10/10/20 24 10/10/2024 COMP. METAB OLIC PANEL (14) carbon dioxide, total 23 mmol/ L 20-29 normal Not Available [facility] ([facility]) [address] [place], [address], 10/11/2024 06:08:19 10/10/20 24 10/10/2024 COMP. METAB OLIC PANEL (14) calcium 9.5 mg/dL 8.7-10 .3 normal Not Available [facility] ([facility]) [address] [place], [address], 10/11/2024 06:08:19 10/10/20 24 10/10/2024 COMP. METAB OLIC PANEL (14) protein, total 6.2 g/dL 6.0-8. 5 normal Not Available [facility] ([facility]) [address] [place], [address], 10/11/2024 06:08:19 10/10/20 24 10/10/2024 COMP. METAB OLIC PANEL (14) albumin 4.5 g/dL 3.8-4. 8 normal Not Available [facility] ([facility]) [address] [place], [address], 10/11/2024 06:08:19 10/10/20 24 10/10/2024 COMP. METAB OLIC PANEL (14) globulin, total 1.7 g/dL 1.5-4. 5 Not Available [facility] ([facility]) [address] [facility] [place], [address], 10/11/2024 06:08:19 10/10/20 24 10/10/2024 COMP. METAB OLIC PANEL (14) bilirubin, total 0.3 mg/dL 0.0-1. 2 normal Not Available [facility] ([facility]) [address] [facility] [place], [address], 10/11/2024 06:08:19 10/10/20 24 10/10/2024 COMP. METAB OLIC PANEL (14) alkaline phosphatase 95 IU/L 44-121 normal Not Available [facility] ([facility]) [address] [place], [address], 10/11/2024 06:08:19 10/10/20 24 10/10/2024 COMP. METAB OLIC PANEL (14) AST (SGOT) 18 IU/L 0-40 normal Not Available [facility] ([facility]) [address] [facility] [place], [address], 10/11/2024 06:08:19 10/10/20 24 10/10/2024 COMP. METAB OLIC PANEL (14) ALT (SGPT) 17 IU/L 0-32 normal Not Available [facility] ([facility]) [address] [facility], [place], [address], 10/11/2024 06:08:19 10/10/20 24 10/10/2024 HEMOG LOBIN A1C hemoglobin A1C 6.0 % 4.8-5. 6 above high normal Predi abete s: 5.7 - 6.4 Diabe sachin: >6.4 Glyce amie contr ol for adult s with diabe sachin: <7.0 Not Available [facility] ([facility]) [address] [facility], [place], [address], 10/11/2024 06:08:20 01/17/20 25 01/16/2025 rapid flu (A+B) Flu A positi ve Not Available In-Office Order Internal Use Only DO Not Attach Compendium DO Not Attach Compendium, Do Not Delete/merge, [id number] 01/16/2025 14:36:28 01/17/20 25 01/16/2025 rapid flu (A+B) Flu B negati ve Not Available In-Office Order Internal Use Only DO Not Attach Compendium DO Not Attach Compendium, Do Not Delete/merge, [id number] 01/16/2025 14:36:28 01/17/20 25 01/16/2025 rapid SARS CoV 2 Ag, QL IA, respi rator y speci men RAPID SARS COV 2 negati ve Not Available In-Office Order Internal Use Only DO Not Attach Compendium DO Not Attach Compendium, Do Not Delete/merge, [id number] 01/16/2025 14:36:40 10/31/20 24 10/31/2024 MAMMO , scree brandon, digit al, bilat eral PROCED URE: MM Digita l Mammo Screen ing INDICA TION: Screen ing for breast cancer . No known palpab le abnorm alitie s. COMPAR NONA: BBWC and REYES dating back to 2020. TECHNI QUE: Full-f ield digita l CC and MLO 3D tomosy nthesi s images of both breast s were acquir ed. Comput er-aid ed detect ion (CAD) was utiliz ed in the interp retati on of this study. DENSIT Y: There are scatte red areas of fibrog landul ar densit y. FINDIN GS: No suspic ious masses , suspic ious microc alcifi cation s, or areas of pete ectura l distor tion are seen in either breast to sugges t malign kasandra. IMPRES EMILY: No mammog raphic eviden ce of malign kasandra. RECOMM ENDATI ON: Annual mammog raphic screen ing BI-RAD S: 1 (Negat rubia) Lay letter mailed to michaela cespedes WSN: [id number] Orderi ng Physic marika: Dannie Dunn Dictat ed By: Camille Weeks MD, I Dictat ed Date/T tania: 3:12 pm Review ed By: Camille Weeks MD, I Signed By: Camille Weeks MD, I Signed Date/T tania: 3:12 pm Transc ribed By: CSB Transc riptio n Date/T tania: 3:09 pm Birads : Michaela t Class: Outpat ient [facility] (Outpt Imaging) [address], [place], [address], 12/05/2024 13:32:42 10/31/20 24 10/31/2024 MAMMO , scree brandon, digit al, bilat eral No observ ation record ed. [facility] [address], [place], [address], 12/05/2024 13:32:42 01/20/20 25 01/19/2025 XR, chest , 2 view Chest 2 Views Fronta l and Lat Reason : Chroni c cough COMPAR NONA: 2021 FINDIN GS: LINES AND TUBES: None. LUNGS AND PLEURA : Clear lungs. Normal pulmon sourav vascul arity. No pleura l effusi on. No pneumo thorax . HEART, MEDIAS TINUM AND SILVIANO: Heart is normal in size. Normal medias tinal and hilar contou r. BONES AND SOFT TISSUE S: There are degene rative change s of the thorac ic spine. IMPRES EMILY: No acute abnorm ality. WSN: [id number] Orderi ng Physic marika: Mukesh Kevin Dictat ed By: Alan Valerio MD Dictat ed Date/T tania: 1:37 pm Review ed By: Alan Valerio MD Signed By: Alan Valerio MD Signed Date/T tania: 1:37 pm Transc ribed By: CSB Transc ribed Date/T tania: 1:36 pm Patien t Class: Outpat ient [id number] [facility] (Outpt Imaging) [address] [place] [address], [id number], 01/19/2025 17:17:07 Result Notes None recorded. Problems Name Problem SNOMED Code Status Onset Date Resolution Date Notes Provider Name and Address Organization Details Recorded Time Dysthymi a 71562202 Completed 201306/26/2016 RECORDED 03/02/20 14 1:13PM BY PETTY NESS MA, OFFICE VISIT Dannie Moore MD [address] [address], [place], [id number] , [facility] [place] 6 10:14:24 Tobacco user [id number] Completed 201205/15/2014 RECORDED 03/06/20 13 9:53AM BY PETTY NESS MA, ANNOTATI ON/VALERY Moore MD [address] [facility] [address], [place], [address] , [facility] 6 10:14:24 History of clinical finding in subject [id number] Completed 201206/12/2015 RECORDED 03/06/20 13 9:53AM BY PETTY NESS MA, ANNOTATI ON/VALERY Moore MD [address] [address], [place], [address] , [facility] 6 10:14:24 Asthma [id number] Completed 201307/01/2017 Dannie Moore MD [address] [address], [place], [address] , [facility] 7 11:42:26 Headache [id number] Completed 201306/01/2024 Dannie Moore MD [address] [address], [place], [address] , [facility] 4 14:47:07 Screenin g for malignan t neoplasm of breast Completed 201306/12/2015 RECORDED 03/02/20 14 1:17PM BY PETTY NESS MA, OFFICE VISIT Dannie Moore MD [address] [address], [place], [address] , [facility] 6 10:14:24 Bursitis [id number] Completed 201205/15/2014 IMPRESSI ON: PRINTED INFO PROVIDED FOR HOME THERAPY. TO RHEUM IF PERSISTA NT/WORSE ; RECORDED 03/06/20 13 9:53AM BY PETTY NESS MA, ANNOTATI ON/VALERY Moore MD [address] [address], [place], [address] , [facility] 6 10:14:24 Screenin g for malignan t neoplasm of colon Completed 201205/15/2014 RECORDED 10/16/20 13 8:49AM BY PETTY NESS MA, ANNOTATI ON/VALERY Moore MD [address] [address], [place], [address] , [facility] 6 10:14:24 Cough [id number] Completed 201305/15/2014 IMPRESSI ON: SEE IF THIS HELPS. WILL NEEDS FURTHER EVAL IF SYMPTOMS WORSEN/P ERSIST.; RECORDED 03/02/20 14 1:00PM BY PETTY NESS MA, ANNOTATI ON/VALERY Moore MD [address] [address], [place], [address] , [facility] 6 10:14:24 Influenz a vaccine needed [id number] 06 Completed 201105/15/2014 RECORDED 06/29/20 12 10:46AM BY PETTY NESS MA, OFFICE VISIT Dannie Moore MD [address] [address], [place], [address] , [facility] 6 10:14:24 Gastroes ophageal reflux disease 710890677 Completed 201105/15/2014 RECORDED 07/26/20 12 9:11AM BY PETTY NESS MA, ANNOTATI ON/VALERY Moore MD [address] [address], [place], [address] , [facility] 6 10:14:24 Adult health examinat ion Completed [...] MD, OFFICE VISIT Dannie Moore MD [address] [address], [place], [address] , [facility] 6 10:14:24 Adult health examinat ion Completed 201205/15/2014 IMPRESSI ON: WILL UPDATE IMMUNIZA TION STATUS (ZOSTAVA X VACCINE ADVISED) AND SCREEN BASED ON RISK FACTORS. REGULAR DENTAL CARE AND SEATBELT USE ADVISED. DISTRACT ED DRIVING DISCUSSE D. 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 TOBIN FOR COLONOSO CPY DUE THIS SUMMER.; RECORDED 08/04/20 13 1:04PM BY PETTY NESS MA, ANNOTATI ON/ADDNAVARRO Moore MD [address] [address], [place], [address] , [facility] 6 10:14:24 Gastroes ophageal reflux disease [id number] Active 2013 STORY: SON Kayleen kinsey, [facility] 1 10:09:05 Hypercal cemia 08936690 Completed 201306/12/2015 IMPRESSI ON: SLIGHT ELEVATIO N, MAY BE LAB ERROR OR RELATED TO SUPPLEME NT. WILL REDUCE SUPPLEME NT DOSE AND FOLLOW. IF PERSISTA NT WILL NEED FURTHER EVALUATI ON.; RECORDED 03/02/20 14 1:13PM BY PETTY NESS MA, OFFICE VISIT Dannie Moore MD [address] [address], [place], [address] , [facility] 6 10:14:24 Pure hypercho lesterol emia 128148332 Active 2013 Kayleen kinsey [facility] 1 10:09:05 Hypercho lesterol emia 66270212 Completed 201105/15/2014 RECORDED 07/26/20 12 9:12AM BY PETTY NESS MA, ANNOTATI ON/VALERY Moore MD [address] [address], [place], [address] , [facility] 6 10:14:24 Shoulder joint pain [id number] Completed 201305/15/2014 IMPRESSI ON: SUSPECT BURSITIS VS ROTATOR CUFF TENDINOP ATHY. GIVEN LACK OF IMPACT HISTORY WILL DEFER IMAGING TO SPECIALI ST. HAS NAPROXER N AT HOME WILL TRY PAIN MED AT BEDTIME TO HELP WITH SLEEP WHILE WAITING FOR ORTHO.; RECORDED 12/11/19 14 1:12PM BY PETTY NESS MA, ANNOTATI ON/VALERY Moore MD [address], [place], [address] , [facility] 6 10:14:24 Single major depressi ve episode Completed 201307/01/2017 STORY: ZENOBIA /BOBBY Moore MD [address] [facility] [address], [place], [address] , [facility] 7 11:43:42 Major depressi on single episode, in partial remissio n [id number] Completed 201306/01/2024 Dannie Moore MD [address] [facility] [address], [place], [address] , [facility] 4 14:44:19 Screenin g for malignan t neoplasm of breast Completed 201205/15/2014 RECORDED 08/04/20 13 1:04PM BY PETTY NESS MA, ANNEATI ON/VALERY Moore MD [address] [facility] [address], [place], [address] , [facility] 6 10:14:24 Migraine 03789898 Active 2013 Kayleen kinsey [facility] 1 10:09:05 Plantar nerve lesion 981443225 Completed 201205/15/2014 IMPRESSI ON: PT HAS HISTORY OF THIS DIAGNOSI S AND IS REQUESTI NG PODIATRY CONSULTA TION. SHE WILL ARRANGE. ; RECORDED 08/04/20 13 1:04PM BY PETTY NESS MA, ANNOTATI ON/VALERY Moore MD [address] [facility] [address], [place], [address] , [facility] 6 10:14:24 Non-toxi c multinod ular goiter 58431751 Active 2013 Kayleen kinsey [facility] 1 10:09:05 Overweig ht 430150465 Completed 201306/26/2016 IMPRESSI ON: [facility]ARD[facility] R DIETARY AND EXERCISE HABITS ADVISED. ; RECORDED 03/02/20 14 1:13PM BY PETTY NESS MA, OFFICE VISIT Dannie Moore MD [address] [address], [place], [address] , [facility] 9 13:42:37 Active or passive immuniza tion Completed 201105/15/2014 RECORDED 07/26/20 12 9:57AM BY DANNIE Maciel MD, OFFICE VISIT Dannie Moore MD [address] [address], [place], [address] , [facility] 6 10:14:24 Chronic sinusiti s 57406773 Completed 201305/15/2014 RECORDED 03/02/20 14 1:44PM BY DANNIE Maciel MD, ANNOTATI ON/ADDEN DUM Dannie Moore MD [address] [address], [place], [address] , [facility] 6 10:14:24 Administ ration of diphther ia and tetanus vaccine Completed 201205/15/2014 RECORDED 08/04/20 13 1:04PM BY PETTY NESS MA, ANNOTATI ON/ADDEN DUM Dannie Moore MD [address] [address], [place], [address] , [facility] 6 10:14:24 Non-toxi c uninodul ar goiter 080337173 Completed 201306/26/2016 STORY: GLENN GUILLORY; Dannie Moore MD [address] [address], [place], [address] , [facility] 6 10:14:24 Acute upper respirat ory infectio n 13582275 Completed 201205/15/2014 IMPRESSI ON: SOUNDS VIRAL AND LIKELY RESOLVIN G. CALL IF PERSISTA NT/WORSE .; RECORDED 03/06/20 13 9:53AM BY PETTY NESS MA, ANNOTATI ON/ADDEN DUM Dannie Moore MD [address], [place], [address] , [facility] 6 10:14:24 Administ ration of viral vaccine Completed 201306/12/2015 RECORDED 03/02/20 14 1:54PM BY DANNIE Maciel MD, OFFICE VISIT Dannie Moore MD [address] [facility] [address], [place], [address] , [facility] 6 10:14:24 Tobacco user [id number] Completed 201206/11/2014 RECORDED 03/06/20 13 9:53AM BY PETTY NESS MA, ANNOTATI ON/ADDEN DUM Dannie Moore MD [address], [place], [address] , [facility] 6 10:14:24 Bursitis 34554070 Completed 201206/11/2014 IMPRESSI ON: PRINTED INFO PROVIDED FOR HOME THERAPY. TO RHEUM IF PERSISTA NT/WORSE ; RECORDED 03/06/20 13 9:53AM BY PETTY NESS MA, ANNOTJHOANA ON/ADDEN DUM Dannie Moore MD [address] [facility] [address], [place], [address] , [facility] 6 10:14:24 Screenin g for malignan t neoplasm of colon Completed 201206/11/2014 RECORDED 10/16/20 13 8:49AM BY PETTY NESS MA, ANNOTATI ON/ADDEN DUM Dannie Moore MD [address] [facility] [address], [place], [address] , [facility] 6 10:14:24 Cough [id number] Completed 201306/11/2014 IMPRESSI ON: SEE IF THIS HELPS. WILL NEEDS FURTHER EVAL IF SYMPTOMS WORSEN/P ERSIST.; RECORDED 03/02/20 14 1:00PM BY PETTY NESS MA, SAYRA ON/VALERY Moore MD [address] [facility] [address], [place], [address] , [facility] 6 10:14:24 Influenz a vaccine needed [id number] 06 Completed 201106/11/2014 RECORDED 06/29/20 12 10:46AM BY PETTY NESS MA, OFFICE VISIT Dannie Moore MD [address] [facility] [address], [place], [address] , [facility] 6 10:14:24 Gastroes ophageal reflux disease 931496256 Completed 201106/11/2014 RECORDED 07/26/20 12 9:11AM BY PETTY NESS MA, SAYRA ON/VALERY Moore MD [address] [facility] [address], [place], [address] , [facility] 6 10:14:24 Hypercho lesterol emia 35528866 Completed 201106/11/2014 RECORDED 07/26/20 12 9:12AM BY PETTY NESS MA, SAYRA BURCIAGA/VALERY Moore MD [address] [facility] [address], [place], [address] , [facility] 6 10:14:24 Shoulder joint pain 142277357 Completed 201306/11/2014 IMPRESSI ON: SUSPECT BURSITIS VS ROTATOR CUFF TENDINOP ATHY. GIVEN LACK OF IMPACT HISTORY [facility] N[facility] N AT HOME WILL TRY PAIN MED AT BEDTIME TO HELP WITH SLEEP WHILE WAITING FOR ORTHO.; RECORDED 12/11/19 14 1:12PM BY PETTY NESS MA, SAYRA BURCIAGA/VALERY Moore MD [address] [address], [place], [address] , [facility] 6 10:14:24 Plantar nerve lesion 303642172 Completed 201206/11/2014 IMPRESSI ON: PT HAS HISTORY OF THIS DIAGNOSI S AND IS REQUESTI NG PODIATRY CONSULTA TION. SHE WILL ARRANGE. ; RECORDED 08/04/20 13 1:04PM BY PETTY NESS MA, ANNEATI ON/ADDEN DUM Dannie Moore MD [address] [address], [place], [address] , [facility] 6 10:14:24 Active or passive immuniza tion Completed 201106/11/2014 RECORDED 07/26/20 12 9:57AM BY DANNIE Maciel MD, OFFICE VISIT Dannie Moore MD [address] [address], [place], [address] , [facility] 6 10:14:24 Chronic sinusiti s 45941791 Completed 201306/11/2014 RECORDED 03/02/20 14 1:44PM BY DANNIE Maciel MD, ANNOTATI ON/ DUM Dannie Moore MD [address] [address], [place], [address] , [facility] 6 10:14:24 Administ ration of diphther ia and tetanus vaccine Completed 201206/11/2014 RECORDED 08/04/20 13 1:04PM BY PETTY NESS MA, ANNOTATI ON/ADD DUM Dannie Moore MD [address] [address], [place], [address] , [facility] 6 10:14:24 Acute upper respirat ory infectio n 25123052 Completed 201206/11/2014 IMPRESSI ON: SOUNDS VIRAL AND LIKELY RESOLVIN G. 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 Completed 06/12/2015 s/p gilbert -Paula Moore MD [address], [place], [address] , [facility] 6 10:14:24 Mammogra phy abnormal 569955723 Completed 201407/01/2017 Dannie Moore MD [address], [place], [address] , [facility] 7 11:41:54 Osteopen ia 080284312 Completed 11/20/2018 Dannie Moore MD [address], [place], [address] , [facility] 9 20:53:35 Acute pharyngi tis 857301021 Completed 03/01/2016 Dannie Moore MD [address], [place], [address] , [facility] 6 10:14:24 Cough 08658582 Completed 06/26/2016 Dannie Moore MD [address], [place], [address] , [facility] 6 10:14:24 Recurren t sinusiti s 668984100 Active Kayleen kinsey, [facility] 1 10:09:05 Low back pain 334424781 Active Kayleen Ibrahim tio, [facility] 1 10:09:05 Inflamma tion of sacroili ac joint 59028991 Completed 07/01/2017 Dannie Moore MD [address], [place], [address] , [facility] 7 11:43:30 Insomnia 613413341 Active 2016 Kayleen Ibrahimfern kinsey, [facility] 1 10:09:05 Impaired fasting glycemia 033269262 Active 2017 Kayleen kinsey, [facility] 1 10:09:05 Overweig ht 719812422 Completed 201707/25/2019 Dannie Moore MD [address], [place], [address] , [facility] 9 13:42:37 Sinus tachycar bud 07523009 Active 2017 Kayleen Ibrahimfern kinsey [facility] 1 10:09:05 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 574783727 Active 2018 Kayleenfern Ibrahim tio, [facility] 1 10:09:05 Degenera tion of interver tebral disc 01166774 Active 2018 C5-C7 Kayleen Ibrahim tio, [facility] 1 10:09:05 Osteopor osis 73177825 Completed 201804/05/2023 Dannie Moore MD [address] [facility] [address], [place], [address] , [facility] 3 17:05:27 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 916813971 Active 2018 [facility] 1 10:09:05 Divertic ular disease 227197735 Active 2018 Kayleenfern kinsey [facility] 1 10:09:05 Anxiety state 781339698 Active 2011 Nathalia kinsey [facility] 0 08:50:09 Allergic rhinitis 90221085 Active 2011 [facility] 0 08:50:09 Disorder of bone and articula r cartilag e 588449334 Active 2011 Kayleenfern kinsey [facility] 1 10:09:05 Borderli ne glaucoma Active 2011 Nathalia kinsey [facility] 0 08:50:09 Osteopen ia 879456051 Active 2015 [facility] 1 10:09:05 Family history of breast cancer 789908931 Active 2012 Nathalia kinsey [facility] 0 08:50:09 Sinus node dysfunct ion 29396066 Active 2011 Nathalia Oliverio kinsey [facility] 0 08:50:09 Actinic keratosi s 506345057 Active 2019 Kayleen Ibrahim tio [facility] 1 10:09:05 Prediabe sachin 300160529 Active 2019 [facility] 1 10:09:05 Chronic kidney disease stage 3 618185560 Completed 202005/07/2021 Dannie Moore MD [address] [address], [place], [address] , [facility] 1 21:18:46 Hyperten sive renal disease 43444915 Active 2020 Concepción Main tio, [facility] 1 09:56:37 Hyperpar athyroid ism 86429918 Active 2020 Dannie Moore MD [address] [address], [place], [address] , [facility] 1 21:06:42 Impingem ent syndrome of right shoulder region 87802113843 9102 Active 2021 Dannie Moore MD [address] [address], [place], [address] , [facility] 2 12:51:37 Chronic paronych ia 266597815 Completed 202206/01/2024 Dannie Moore MD [address] [address], [place], [address] , [facility] 4 14:47:05 Chronic kidney disease stage 2 980324696 Completed 202209/28/2023 Dannie Moore MD [address] [address], [place], [address] , [facility] 3 06:57:37 Bursitis of right hip 184643825 Active 2022 Dannie Moore MD [address] [address], [place], [address] , [facility] 3 14:53:08 Chronic kidney disease stage 3A 905887356 Active 2022 Dannie Moore MD [address] [address], [address] , [facility] 3 06:57:54 Postoper ative hypothyr oidism 57247537 Active 2023 Dannie Moore MD [address], [place], [address] , [facility] 4 09:11:14 Hiatal hernia 65160375 Active 2023 Dannie Moore MD [address], [place], [address] , [facility] 4 14:46:12 Major depressi on in remissio n 44110424 Active 2023 Dannie Moore MD [address], [place], [address] , [facility] 4 15:08:48 Body mass index 25-29 - overweig ht 046865385 Active 2023 Dannie Moore MD [address], [place], [address] , [facility] 4 15:18:13 Trochant linda bursitis of right hip 11048463763 9100 Active 2024 Dannie Moore MD [address], [place], [address] , [facility] 5 16:41:49 Problem Notes None recorded. Procedures Surgical History Date Name Laterality Status Provider Name and Address Organization Details Recorded Time 2023 Most Recent Mammogram completed Shanda Mcgrath [facility] 5 07:47:10 2023 Advanced Care Planning completed Dannie Moore MD [address], [place], [address], [facility] 4 14:58:26 2023 total thyroidectomy completed Shanda Mcgrath [facility] 4 08:05:25 2022 Mammogram screening completed Andreina West [facility] 3 16:00:14 11/05/ 2021 biopsy of lesion of thyroid gland completed Dannie Moore MD [address], [place], [address], [facility] 1 06:59:41 2020 biopsy of thyroid completed Dannie Moore MD [address], [place], [address], [facility] 1 06:36:06 2020 Six-Item Cognitive Test completed Petty Ness MA [facility] 1 14:00:21 2019 esophagogastroduodenoscopy completed Dannie Moore MD [address], [place], [address], [facility] 4 14:45:57 2018 Mini-Cog Test completed Petty Ness MA [facility] 9 13:09:37 2018 Date of Last Colonoscopy completed Petty Ness MA [facility] 2 13:09:08 2018 colonoscopy completed Dannie Moore MD [address] [facility] [address], [place], [address], [facility] 1 14:40:15 2018 Most Recent Bone Density completed Petty Ness MA [facility] 9 13:06:40 2018 Dxa bone density waldemar vrt fx completed Ritika Ness MA [facility] 9 13:06:13 2017 Eye Surgery completed Dannie Moore MD [address], [place], [address], [facility] 9 13:39:05 2017 Mini-Cog Test completed Chrissy Cazares [facility] 8 10:42:09 2017 Echo transthoracic completed Dannie Moore MD [address], [place], [address], [facility] 8 09:47:42 2016 Fall Risk Assessment completed Sidra frederick [place] [facility] 7 11:14:21 2016 Mini-Cog Test completed Sidra frederick MA [facility] 7 11:15:30 2016 Advanced Care Planning completed Dannie Moore MD [address] [facility] [address], [place], [address], [facility] 7 11:40:14 2015 Fall Risk Assessment completed Petty Ness [place] [facility] 6 09:56:47 2015 Mini-Cog Test completed Petty Ness MA [facility] 6 09:57:35 2015 Advanced Care Planning completed Petty Ness [place] [facility] 6 09:49:22 2014 Fall Risk Assessment completed Petty Ness [place] [facility] 5 14:12:30 2014 Mini-Cog Test completed Petty Ness [place] [facility] 5 14:12:30 2012 Date of Last Pap Smear completed Petty Ness [place] [facility] 5 14:00:16 1985 Hysterectomy completed Petty Ness MA [facility] 6 09:54:00 1977 oophorectomy completed Dannie Moore MD [address] [facility] [address], [place], [address], [facility] 9 19:13:18 1958 Appendectomy completed Petty Ness MA [facility] 6 09:54:00 Tonsillectomy completed Petty Ness MA [facility] 5 14:00:16 Arthroscopic Surgery completed Ritika Ness MA [facility] 6 09:54:00 Thyroid Surgery completed Petty Ness MA [facility] 6 09:54:00 Hemorrhoidectomy completed Petty Ness MA [facility] 5 14:00:16 intra-articular injection completed Dannie Moore MD [address] [facility] [address], [place], [address], [facility] 3 14:54:50 Imaging Results Imaging Date Name Status LastModified by Organiz ation Details LastModified Time 10/31/2024 MAMMO, screening, digital, bilateral completed [facility] (Outpt Imaging) [address] [place], [address], 12/05/2024 13:32:42 10/31/2024 MAMMO, screening, digital, bilateral completed [facility] [address], [place], [address], 12/05/2024 13:32:42 01/19/2025 XR, chest, 2 view completed [email or web address] [facility] (Outpt Imaging) [address] [place], [address], 01/19/2025 17:17:07 Procedure Notes None recorded. Medical Equipment None Reported. Allergies Allergen ID Allergen Name Allergen Category Reaction Reaction Severity Criticality Documentation Date Start Date Code Code System Note Provider Name and Address Organization Details Recorded Time 15100 ampicilli n medicatio n abdominal pain Not available Not available 07/01/2017 733 RxNorm JAIRO Romo, [facility] 7 11:11:25 70352 meperidin e medicatio n Not available Not available Not available 03/15/2020 6754 RxNorm Nathalia Duron [facility] 0 11:25:39 09051 Bactrim medicatio n nausea moderate Not available 10/19/2020 60165 9 RxNorm Dannie Moore MD [address] [facility] [address], [place], [address], [facility] [facility] [place] 3 09:00:49 87057 Bactrim medicatio n abdominal pain nausea severe moderate Not available 10/19/2020 [id number] 9 RxNorm Sidra frederick [facility], [facility] 0 10:30:06 4130 Demerol medicatio n Not available Not available Not available 05/15/20142013 16993 1 RxNorm Dannie Moore MD [address] [facility] [address], [place], [address], [facility] [place] [facility] 3 09:00:52 Medications Name Sig Start Date [...] day by oral route for 5 days. 01/28 completed Not Available Not Available Not Available [...] 30 mg tablet Take 1 tablet every 8 hours by oral route as needed for 5 days. 01/28 completed Not Available Not Available Not Available [...] TABLET BY MOUTH EVERY SIX HOURS NEEDED 2023 active Not Available Not Available Not [...] 1 TABLET EVERY DAY IN THE EVENING 2023 active Not Available Not Available Not Avai lable erythromy rony 5 mg/gram (0.5 %) eye ointment APPLY 1 CM RIBBON INTO THE LOWER CONJUNCT IVAL SAC(S) IN THE AFFECTED EYE(S) BY OPHTHALM IC ROUTE 3 TIMES PER DAY FOR 10 days 12/05 completed Not Available Not Available Not Available fluoxetin e 20 mg tablet Take 1 tablet every day by oral route for 90 days. 03/02 completed Not Available Not Available Not Available fluoxetin e 10 mg capsule TAKE 1 CAPSULE BY MOUTH EVERY DAY active Not Available Not Available No t Available gabapenti n 300 mg capsule Take 1 capsule 3 times a day by oral route for 90 days. 07/01 completed Not Available Not Available Not Available omeprazol e 20 mg capsule,d elayed release Take 1 capsule every day by oral route. active Per patient takes it twice daily Not Available Not Available Not Available monteluka st 10 mg tablet Take [...] n 0.3 %-dexamet hasone 0.1 % [facility] drops,[facility] 12/05 completed Not Available Not Available Not Available [...] 300 mg 24 hr tablet, extended release TAKE 1 TABLET BY MOUTH IN THE MORNING active Not Available Not Available No t Available bupropion HCl XL 150 mg 24 hr tablet, extended release 08/28 completed Not Available Not Available Not Available nitrofura ntoin monohydra te/macroc rystals 100 mg capsule Take 1 capsule twice a day by oral route. 07/23 completed Not Available Not Available Not Available calcium active Not Available Not Avail able Not Available Fish Oil take 1 tab daily po 06/25 completed RECORDED 03/02/20 14 1:14PM BY PETTY NESS MA, OFFICE VISIT; Not Available Not Available Not Available naproxen TWO TIMES DAILY, NEEDED WITH FOORD 11/15 completed RECORDED 11/16/19 14 11:30AM BY DANNIE Maciel MD, MEDICATI ON AUTO-YOLIS CTIVATIO N; Not Available Not Available Not Available Vitamin D active Not Available Not Sadia ilable Not Available multivita min Take 1 tablet [...] 19,400 unit/0.65 mL subcutane ous suspensio n CHANNING X 1 03/03 completed RECORDED 03/07/20 14 [...] Available Not Available Not Available Fluzone High-Dose 2014- (PF) 180 mcg/0.5 mL intramusc ular syringe active Not Available Not Available Not Available Fluzone High-Dose Quad (PF) 240 mcg/0.7 mL IM syringe 10/19 completed Not Available Not Available Not Available Vitals Date Recorded Body height Body mass index (BMI) Body weight Heart rate Oxygen saturation Oxygen saturation in Arterial blood by Pulse oximetry Body temperature Systolic blood pressure Diastolic blood pressure Provider Name and Address Organization Details Last Updated DateTime 4 153.04 cm 29.6 kg/m2 70391.6 3 g 83 /min 96 % 96 % 97.3 [degF] 171 mm[Hg] 91 mm[Hg] [facility] 4 11:26:25 Date Recorded Body height Body mass index (BMI) Body weight Heart rate Oxygen saturation Oxygen saturation in Arterial blood by Pulse oximetry Body temperature Systolic blood pressure Diastolic blood pressure Provider Name and Address Organization Details Last Updated DateTime 4 153.04 cm 29.1 kg/m2 66223.8 6 g 86 /min 97 % 97 % 97.8 [degF] 145 mm[Hg] 78 mm[Hg] Anastacia Husain MA [facility] [place] 4 14:07:00 Date Recorded Body height Oxygen saturation Oxygen saturation in Arterial blood by Pulse oximetry Heart rate Body temperature Systolic blood pressure Diastolic blood pressure Provider Name and Address Organization Details Last Updated DateTime 4 153.04 cm 98 % 98 % 97 /min 97.6 [degF] 125 mm[Hg] 82 mm[Hg] Rona Delatorre MA [facility] 4 13:59:50 Date Recorded Body height Body mass index (BMI) Body weight Heart rate Oxygen saturation Oxygen saturation in Arterial blood by Pulse oximetry Body temperature Systolic blood pressure Diastolic blood pressure Provider Name and Address Organization Details Last Updated DateTime 5 153.04 cm 29.6 kg/m2 33607.6 3 g 95 /min 97 % 97 % 97.9 [degF] 109 mm[Hg] 65 mm[Hg] Rebeca Lambert MA [facility] 5 13:18:06 Date Recorded Body height Body mass index (BMI) Body weight Systolic blood pressure Diastolic blood pressure Provider Name and Address Organization Details Last Updated DateTime 01/16/2025 153.04 cm 29.4 kg/m2 97736.04 g 156 mm[Hg] 82 mm[Hg] Anastacia Husain MA [facility] 5 14:41:29 Social History Question Answer Notes LastModified by Organizat ion Details LastModified Time Tobacco Smoking Status Former Smoker Not Available [facility] 09/03/2020 03:36:44 Do You Have An Advance Directive? Yes Taylor (daughter) And Yemi (son) Information not available 10/19/2020 What Is Your Level Of Alcohol Consumption? Occasional Rarly [email or web address] Information not available 04/05/2023 Is Blood Transfusion Acceptable In An Emergency? Yes [id number] Information not available 09/03/2020 What Is Your Level Of Caffeine Consumption? None Rearly [email or web address] Information not available 04/05/2023 How Much Tobacco Do You Chew? None [id number] Information not available 09/03/2020 In The 14 Days Before Symptom Onset, Have You Had Close Contact [facility] While That Case Was Ill? No [id number] Information not available 09/03/2020 In The 14 Days Before Symptom Onset, Have You Had Close Contact With A Person Who Is Under Investigation For COVID-19 While That Person Was Ill? No [id number] Information not available 09/03/2020 Have You Been To An Area Known To Be High Risk For COVID-19? No [id number] Information not available 09/03/2020 Are You Currently Employed? No Retired Information not available 10/19/2020 What Type Of Diet Are You Following? REGULAR [id number] Information not available 09/03/2020 Which Illicit Or Recreational Drugs Have You Used? None [id number] Information not available 09/03/2020 Do You Or Have You Ever Used E-cigarettes Or Vape? Never Used Electronic Cigarettes [id number] Information not available 09/03/2020 What Is Your [...] 10/19/2020 Have You Recently Traveled To A [place] [id number] High Risk Area Or Gathering In The Last 10 Days? No Information not available 02/24/2021 What Was The Date Of Your Most Recent Tobacco Screening? 06/01/2024 [email or web address] Information not available 06/01/2024 How Many Children Do You Have? 2 [id number] Information not available 09/03/2020 What Is Your Current Pack Years? [email or web address] Information not available 02/24/2021 Seat Belts Used Routinely Yes Information not available 06/12/2015 Are You Sexually Active? No [id number] Information not available 09/03/2020 Smoke Alarm In Home Yes Information not available 06/12/2015 At What Age Did You Start Smoking Tobacco? 22 Information not available 02/24/2021 Are You Passively Exposed To Smoke? No Information not available 06/12/2015 Do You Or Have You Ever Used Smokeless Tobacco? Never Used Smokeless Tobacco [id number] Information not available 09/03/2020 How Much Tobacco Do You Smoke? 1 PPW Information not available 02/24/2021 Do You Use Any Illicit Or Recreational Drugs? No Information not available 03/02/2022 Do You Use Sunscreen Routinely? Yes [id number] Information not available 09/03/2020 How Many Years Have You Smoked Tobacco? 8 [id number] Information not available 09/03/2020 Do You Or Have You Ever Used Any Other Forms Of Tobacco Or Nicotine? No Information not available 03/02/2022 Sex: Unknown Functional Status Question Answer Note LastModified by Organizat ion Details LastModified Time Are you able to walk? [email or web address] Information not available 03/02/2022 Are you able to care for yourself? Yes [id number] Information not available 09/03/2020 What is your exercise level? Occasional walking 3x week [id number] Information not available 09/03/2020 Mental Status None [...] N Breast Cancer N mrsa exposure N Hypothyroidism N Lung Disease N COPD N Depression Y Developmental or Behavioral Disorders N Defects or Inherited Disease N Breast Problem N Anesthesia Complications N Headaches/Migraines Y Anxiety Disorder Y Varicose Veins N Muscle, Joint, or Bone Problems N Obesity Y Vision or Eye Problems N Arthritis N Head Injury/Concussion N Infertility N Polyps N Mental Disorder N Congenital Anomalies N Acid Reflux (GERD) Y Cancer N Stroke N ADHD N Endometriosis N High Cholesterol Y Liver Disease N Fibromyalgia N Headaches N Kidney Disease N Heart Problems N [...] Disease N Pulmonary Embolism N Hypertension Y Chicken Pox Y Autism Spectrum Disorder (ASD) N Osteoporosis N Gynecological History Statement/Question Response Date of Last Pap Smear 04/19/2013 Date of Last Colonoscopy 05/19/2019 Most Recent Mammogram 10/31/2024 Most Recent Bone Density 11/11/2018 Obstetrics History GPAL:G 0 P 0 0 0 0 Immunizations Vaccine Type Date Status Note Provider Name and Address Organization Details Recorded Time Influenza, split virus, trivalent, preservative 015 completed [facility] 10:09:11 zoster recombinant 018 completed [place] [place] [facility] 07/25/2019 13:05:16 Influenza, split virus, quadrivalent, preservative 020 completed Kayleen Ibrahim [facility] 03/14/2021 10:09:11 Influenza, split virus, trivalent, preservative 013 completed Railroad [place], [place] [facility] 03/02/2022 13:04:01 COVID-19, mRNA, LNP-S, PF, 30 mcg/0.3 mL dose 021 completed [place] [facility] 03/02/2022 13:04:01 COVID-19, mRNA, LNP-S, PF, 30 mcg/0.3 mL dose 021 completed [place] [facility] 03/02/2022 13:04:01 Influenza, split virus, trivalent, preservative 014 [place] [facility] 03/02/2022 13:04:01 COVID-19, mRNA, LNP-S, PF, 30 mcg/0.3 mL dose 021 [facility] [place] [facility] 03/02/2022 13:04:01 zoster recombinant 020 completed Petty Bolcun [place] tio, [facility] 03/02/2022 13:06:12 Influenza, high-dose, trivalent, PF 018 completed JAIRO Monson, [facility] 08/14/2022 12:53:06 Influenza, high-dose, trivalent, PF 016 completed JAIRO Monson, [facility] 08/14/2022 12:53:06 Influenza, high-dose, quadrivalent, PF 021 completed JAIRO Monson, [facility] 08/14/2022 12:53:06 Influenza, high-dose, trivalent, PF 019 completed JAIRO Monson, [facility] 08/14/2022 12:53:06 Influenza, high-dose, trivalent, PF 017 completed JAIRO Monson, [facility] 08/14/2022 12:53:06 COVID-19, mRNA, LNP-S, PF, 30 mcg/0.3 mL dose 021 completed JAIRO Monson, [facility] 08/14/2022 12:53:06 Influenza, adjuvanted, quadrivalent, PF 022 completed JAIRO Monson, [facility] 08/14/2022 12:53:07 Pneumococcal conjugate PCV 13 015 completed JAIRO Monson, [facility] 08/14/2022 12:53:07 COVID-19, mRNA, LNP-S, PF, 30 mcg/0.3 mL dose 021 completed JAIRO Monson, [facility] 08/14/2022 12:53:07 COVID-19, mRNA, LNP-S, bivalent, PF, 30 mcg/0.3 mL dose 023 completed JAIRO Carolina [facility] 03/18/2023 15:53:15 Influenza, adjuvanted, quadrivalent, PF 023 completed JAIRO Kaplan, [facility] 09/30/2023 10:51:39 COVID-19, mRNA, LNP-S, PF, dinora-sucrose, 30 mcg/0.3 mL 023 completed Janet Moreno MA null, [facility] 09/30/2023 10:51:39 COVID-19, mRNA, LNP-S, PF, dinora-sucrose, 30 mcg/0.3 mL 024 completed JAIRO Hamlin, [facility] 08/30/2024 13:50:30 Influenza, high-dose, trivalent, PF 024 completed JAIRO Hamlin, [facility] 08/30/2024 13:50:30 zoster live 017 cancelled patient objection Not Available [facility] 11/18/2019 02:21:33 Influenza, split virus, trivalent, preservative 012 completed Kayleen Ibrahim null, [facility] 03/14/2021 10:09:11 pneumococcal polysaccharide PPV23 012 completed Kayleen Ibrahim null, [facility] 03/14/2021 10:09:11 Tdap 013 completed Kayleen Ibrahim null, [facility] 03/14/2021 10:09:11 zoster recombinant 019 cancelled patient objection Not Available [facility] 11/18/2019 02:22:20 Td (adult), 2 Lf tetanus toxoid, preservative free, adsorbed 023 completed Dannie Moore MD [address], [address], [facility] 04/05/2023 17:05:41 Past Encounters Encounter ID Performer Location Encounter Start Date Encounter Closed Date Diagnosis/Indication Diagnosis SNOMED-CT Code Diagnosis ICD10 Code Diagnosis Note [id number] [facility] [address] [place] [address] 06/29/2012 00:00:00 [id number] auto[facility] erce [address] [facility] [place] [address] 07/26/2012 00:00:00 [id number] auto[facility]Comm erce [address] [facility] [place], [place] [address] 11/16/2012 00:00:00 [id number] auto[facility]Comm erce [address] [facility] [place] [address] 03/06/2013 00:00:00 [id number] auto[facility] erce [address] [facility] [place], [place] [address] 08/07/2013 00:00:00 [id number] [facility] erce [address] [facility] [place], [place] [address] 10/16/2013 00:00:00 [id number] [facility] erce [address] [facility] [place], [place] [address] 12/11/2013 00:00:00 [id number] auto[facility] erce [address] [facility] [place], [place] [address] 03/02/2014 00:00:00 [id number] Dannie Moore MD Main Office [address] [facility] [address] [place], [place] [address] 07/31/2014 10:18:36 07/31/2014 10:57:32 Acute pharyngitis 897381975 Laryngitis 43808867 [id number] Dannie Moore MD Main Office [address] [facility] [address] [place], [place] [address] 06/12/2015 13:48:45 06/12/2015 15:15:33 Adult health examination 213445380 Will update immunizati on status and screen based on risk factors. Flu advised in the Fall. Breast, cervical and colon cancer screening utd. Regular dental and ophtho care advised as well as seatbelt and sunscreen use. Distracted driving discussed. Pt currently demonstrat es low risk for falls and no significan t cognitive decline. Advance directives in place. Body mass index 25-29 - overweight 775890602 Pure hypercholesterolemia 346811464 Based on 10 yr CV risk >7.5% will start moderate dose statin. Non-toxic multinodular goiter 75216225 Osteopenia 723821751 Reg ular weight bearing exercise and adequate dietary Ca/VitD intake advised. Administra tion of pneumococcal vaccine 24757149 Major depr ession single episode, in partial remission 01098777 Stable, and followed/m anaged by psych. [id number] Dannie Moore MD Main Office [address] [facility] [address] [place] [address] 06/19/2015 13:26:55 06/19/2015 14:09:24 Acute pharyngitis 872686367 Rapid strep negative and overall symptom score makes strep unlikely. Call if persistent /worse. Cough 42432442 Suspect that this is an allergy mediated phenomenon given cyclical recurrent nature. Will treat symptoms acutely with short course of steroid and hopefully sustain symptom control with antihistam ine. Advised to call inb/worse. [id number] Dannei Moore MD Main Office [address] [facility] [address] [facility] [place] [address] 06/27/2015 15:00:10 06/27/2015 16:15:29 Recurrent sinusitis 404639187 Still suspect an allergic foundation of inflammati on but now with secondary bacterial process. Will try to address both issues. Cough 92980455 Suspect that this is an allergy mediated phenomenon given cyclical recurrent nature. Will treat symptoms acutely with short course of steroid and hopefully sustain symptom control with antihistam ine. Refer to allergy for further eval if persistent /worse. [id number] Mukesh Robertson MD Main Office [address] [facility] [address] [facility] [place] [address] 01/24/2016 13:36:29 01/24/2016 14:35:11 Low back pain 243687315 M54.5 H/o lumbar disc degenerati on with slow gradual recurrence of symptoms . Will start more regular NSAIDs and referral to PT for several weeks. If no sign. imrovement s , will repeat MRI and refer to pain management . [id number] Dannie Moore MD Main Office [address] [facility] [address] [facility] [place] [address] 02/27/2016 15:32:07 02/27/2016 16:39:01 Tachycardia 5396706 R00.0 Currently well controlled . Pt advised ok to take and extra dose on days that BP/HR might be more elevated. Also advised to call if occurring frequently or of long duration or associated with dizziness/ CP/SOB. Would need holter at that time. Pure hypercholesterolemia 505738017 E78.0 tolerating statin, LDL at goal. Continue current dosing. [id number] Dannie Moore MD Main Office [address] [place] [address] [place] [address] 06/26/2016 09:28:34 06/26/2016 10:56:40 Adult health examination 454850131 Z00.00 Immunizati on status updated will screen based on risk factors. Breast, cervical and colon cancer screening utd. Regular dental and ophtho care advised as well as seat belt and sunscreen use. Distracted driving discussed. Pt currently demonstrat es low risk for falls and no significan t cognitive decline. Advance directives in place. Advance di rective discussed with patient 995232025 Z71.89 MOLST for provided Single nelia or depressive episode 350425518 F32.9 Followed closely and meds managed by psych. Pure hypercholesterolemia 876164420 E78.0 tolerating statin, LDL at goal. Continue current dosing. Body mass index 25-29 - overweight 462025669 Z68.29 Osteopenia 246864108 M85 .80 Regular weight bearing exercise and adequate dietary Ca/VitD intake advised. Tachycardia 7215589 R00. 0 Currently well controlled . Pt advised ok to take and extra dose on days that BP/HR might be more elevated. Also advised to call if occurring frequently or of long duration or associated with dizziness/ CP/SOB. Would need further eval at that time. Influenza vaccine needed 9163116809 106 Z23 Inflammati on of sacroiliac joint 84885149 M46.1 [id number] Alfredito Buckley MD Main Office [address] [place] [address] [place] [address] 07/01/2016 10:24:49 07/01/2016 11:32:56 Dysuria 63097428 R30.0 [id number] Dannie Moore MD Main Office [address] [facility] [address] [place] [address] 07/23/2016 15:46:09 07/23/2016 16:48:25 Left flank pain 117225526 R10.9 Etiology unclear. Thus far only abnormalit y found are possible bladder wall fullness with subtle UA abnormalit ies. Left lower quadrant pain 205402935 R10.32 See if neurogenic pain meds help, and rule out pelvic/hip pain component. Look for evidence of inflammato ry process. [id number] Dannie Moore MD Main Office [address] [facility] [address] [place] [address] 07/01/2017 10:56:22 07/01/2017 12:24:39 Adult health examination 986354715 Z00.00 Immunizati on status updated will screen based on risk factors. Breast, cervical and colon cancer screening utd. Regular dental and ophtho care advised as well as seat belt and sunscreen use. Distracted driving discussed. Pt currently demonstrat es low risk for falls and no significan t cognitive decline. Advance directives in place. Varicella vaccination 68 033947 Z23 Screening for malignant neoplasm of breast 434101056 Z12.39 Influenza vaccine needed 9055007838 106 Z23 Body mass index 25-29 - overweight 887544977 Z68.29 Advance di rective discussed with patient 375734523 Z71.89 Patient is planning on having a meeting with her son and daughter to reaffirm end of life care goal/wishe s. Pure hypercholesterolemia 496219645 E78.00 Tachycardia 1231041 R00. 0 Currently well controlled . Pt advised ok to take and extra dose on days that BP/HR might be more elevated. Also advised to call if occurring frequently or of long duration or associated with dizziness/ CP/SOB. Would need further eval at that time. Major depr ession single episode, in partial remission 26702195 F32.4 Chronic but overall stable, and followed/m anaged by psych. [id number] Dannie Moore MD Main Office [address] [facility] [address] [place] [address] 01/19/2018 12:33:59 01/19/2018 13:19:50 Tachycardia 5252671 R00.0 Fair control. Suspect deconditio brandon is and issue. Had normal thyroid labs this past Fall. Advised to call if occurring frequently or of long duration or associated with dizziness/ CP/SOB. Would titrate BB dose at that time. Gastroesop hageal reflux disease 730182675 K21.9 Symptoms well controlled with PRN PPI use and no warning signs. Continue current regimen. Pure hypercholesterolemia 793652082 E78.00 LDL at goal. Continue current regimen. Osteopenia 823880799 M85 .80 Regular weight bearing exercise and adequate dietary Ca/VitD intake advised. Due for BND in June [id number] Dannie Moore MD Main Office [address] [facility] [place] [address] 07/07/2018 10:18:54 07/07/2018 11:55:47 Adult health examination 395995660 Z00.00 Immunizati on status updated will screen based on risk factors. Breast, cervical and colon cancer screening utd. Regular dental and ophtho care advised as well as seat belt and sunscreen use. Distracted driving discussed. Pt currently demonstrat es low risk for falls and no significan t cognitive decline. Advance directives in place. Body mass index 25-29 - overweight 437570391 Z68.29 Screening for malignant neoplasm of breast 130324848 Z12.39 Pure hypercholesterolemia 794684652 E78.00 LDL at goal. Continue current regimen. Tachycardia 9267258 R00. 0 Currently fairly well controlled . BB dose titration discussed but pt would prefer to address with cards. Will track down recent echo and holter reports. Major depr ession single episode, in partial remission 13937699 F32.4 Chronic but overall stable, and followed/m anaged by psych. Impaired f asting glycemia 072815979 R73.01 Non-toxic multinodular goiter 62726434 E04.2 Pt would like to follow up with a different andocrinol ogist. Osteopenia 937125550 M85 .80 Regular weight bearing exercise and adequate dietary Ca/VitD intake advised. Due for BND in June Screening for malignant neoplasm of colon 889033768 Z12.11 Varicella vaccination 68 482183 Z23 Influenza vaccine needed 3307626953 106 Z23 Overweight 137809944 E66 .3 [id number] [place] Main Main Office [address] [place] [address] 08/12/2018 14:50:32 08/12/2018 15:53:25 Hordeolum 207870240 H00.[address] Reese office and they will contact the patient. Continue with warm compresses . [id number] Dannie Moore MD Main Office [address] [place] [address] [place] [address] 02/07/2019 12:44:08 02/07/2019 13:34:45 Osteoporosis 30242986 M81.0 Treatment options discussed extensivel y including potential benefits and side effects of bisphospho shauna therapy. >25 min spent face to face counseling . Pt will consider starting rx and let me know if she does as well as if she has any side effects/in tolerance. 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 Image to rule out significan t bone disease. Depending on lab results and response to steroid, may need referral and/or taper. Multiple joint pain 3567 8005 M25.50 [id number] Dannie Moore MD Main Office [address] [address] [place] [address] 07/25/2019 12:51:17 07/25/2019 14:03:14 Adult health examination 782206579 Z00.00 Immunizati on status updated will screen based on risk factors. Breast, cervical and colon cancer screening utd. Regular dental and ophtho care advised as well as seat belt and sunscreen use. Distracted driving discussed. Pt currently demonstrat es low risk for falls and no significan t cognitive decline. Advance directives in place. Essential hypertension 88306139 I10 Well controlled , continue current regimen. Hyperlipidemia 83257141 E78.5 LDL at goal on low dose statin. Influenza vaccine needed 3917874265 106 Z23 Varicella vaccination 68 860024 Z23 Screening for malignant neoplasm of breast 548745450 Z12.39 Major depr ession single episode, in partial remission 34879622 F32.4 Chronic/st able, and followed/m anaged by psych. Obesity 393999197 E66.9 Z68.30 [id number] Dannie Moore MD [address] [address] [place] [address] 03/14/2020 07:43:52 03/14/2020 14:06:43 Cough 46021504 R05 Suspect that this is an allergy mediated phenomenon given cyclical recurrent nature. Will treat with antihistam ine. Refer to allergy for further eval if persistent /worse. Gastroesop hageal reflux disease 117776945 K21.9 See if H2B prn is effective. Monitor while allergy symptoms calm down. Feeling of lump in throat 696165463 F45.8 See if allergy and reflux are the culprits. [id number] Alfredito Buckley MD [address] [address] [place] [address] 10/19/2020 10:26:24 10/21/2020 06:54:24 Essential hypertension 55690788 I10 Vertigo 403597252 R42 [id number] Chrissy Gonsalves Main Office [address] [place] [address] [place] [address] 10/30/2020 14:35:47 11/04/2020 13:22:25 Essential hypertension 94341919 I10 Will try a different generic at pt request, rx sent in. If vertigo is not better then I would recommend vestibular rehab. Pt to call if any acute change. BP has been running ok at home per pt. [id number] Dannie Moore MD Main Office [address] [place], [place] [address] [place] [address] 02/24/2021 13:22:59 02/24/2021 15:01:40 Adult health examination 625723397 Z00.00 Immunizati on status updated will screen based on risk factors. Breast, cervical and colon cancer screening utd. Regular dental and ophtho care advised as well as seat belt and sunscreen use. Distracted driving discussed. Pt currently demonstrat es low risk for falls and no significan t cognitive decline. Advance directives in place. Anxiety state 625094225 F41.1 Depressive disorder 3548 9007 F32.9 Stable. Followed/m anaged by psych. Essential hypertension 71695031 I10 Well controlled , continue current regimen. Screening for malignant neoplasm of breast 107068346 Z12.39 Varicella vaccination 68 695796 Z23 Hepatitis C screening 41 9394959 Z11.59 Pure hypercholesterolemia 876558325 E78.01 LDL at goal. Continue current regimen. Major depr ession single episode, in partial remission 46820380 F32.4 Chronic/st able, and followed/m anaged by psych. Osteoporosis 04696863 M8 1.0 Due for BDN channing. Has appt with endo in April Body mass index 25-29 - overweight 321612606 E66.3 Z68.29 Positional vertigo 46559 4002 H81.13 Persistent issue with CVD risk factors. Will image to rule out old CVA/Mass Albuminuria 152782203 R8 0.9 Need to confirm. Prediabetes 654425049 R7 3.03 Due for reassessme nt. [id number] Concepción Main Main Office [address] [facility] [place] [address] 08/28/2021 12:38:27 08/28/2021 13:39:15 Essential hypertension 05428377 I10 Well controlled , continue current regimen. Influenza vaccine needed 0386981445 106 Z23 Osteoporosis 79861770 M8 1.0 Just crossing the threshold in 1 site. Pt does not want bisphospho shauna Migraine 53403320 G43.90 9 Fair control with current abortive medication regimen. Pure hypercholesterolemia 016108136 E78.01 LDL at goal. Continue current regimen. Chronic ki dney disease stage 3A 370497106 N18.31 Impaired f asting glycemia 870809900 R73.01 Gastroesop hageal reflux disease 419475985 K21.9 See if H2B prn is effective. Monitor while allergy symptoms calm down. [id number] Concepción Main Main Office [address] [facility] [place] [address] 03/02/2022 12:59:01 03/02/2022 14:11:23 Adult health examination 768688780 Z00.00 Immunizati on status updated will screen based on risk factors. Breast, cervical and colon cancer screening utd. Regular dental and ophtho care advised as well as seat belt and sunscreen use. Distracted driving discussed. Pt currently demonstrat es low risk for falls and no significan t cognitive decline. Advance directives in place. Anxiety state 302442308 F41.1 Chronic ki dney disease stage 3A 308515886 N18.31 Hypertensi ve renal disease 66700928 I12.9 Well controlled continue current regimen. Prediabetes 123453378 R7 3.03 Due for reassessme nt. Hyperparathyroidism 6699 9008 E21.3 Will reassess and if persistent and no secondary causes identified will ask endo for help. Screening for malignant neoplasm of breast 687838142 Z12.39 Osteoporosis 30382802 M8 1.0 Just crossing the threshold in 1 site. Pt does not want bisphospho shauna, follows with Endocrine Body mass index 25-29 - overweight 586326334 E66.3 Z68.29 Major depr ession single episode, in partial remission 07347131 F32.4 Chronic/st able, and followed/m anaged by psych. [id number] Dannie Moore MD Telehealt h [address] [facility] [address] [place] [address] 08/14/2022 09:32:43 08/14/2022 13:48:48 Cough 17056250 R05.9 Suspect that this is a viral vs allergy mediated phenomenon . Will treat symptomati aurora in this acute setting. Salt water gargling and nasal saline advised as well at to call if not slowly improving or if second sickening occurs. Will need a more formal assessment and possibly imaging if that's the case. 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 9 recommend probiotics while on abx [id number] Michael Og PA-C Main Office [address] [facility] [address] [place] [address] 08/26/2022 10:54:11 08/26/2022 11:54:59 Hypertensive renal disease 44556442 I12.9 stable, cont meds as dir Reactive a irway disease 4188546780 06 J45.909 better but not gone - cont montelukas t as dir, prn proair -- see below, will check cxr and pft's for further eval (? asthma) Chronic ki dney disease stage 3A 034281181 N18.31 Cough 23758608 R05.9 and chest tightness x > 2 wks --- this happens to her annually -- suspect RAD also rec mucinex pt requested refill [id number] Dannie Moore MD Main Office [address] [address] [place] [address] 10/22/2022 12:56:50 10/22/2022 13:49:51 Hypertensive renal disease 75652856 I12.9 Well controlled continue current regimen. Dizziness 894461570 R42 Stable, had MRI in 2020 and seen ENT in the past. Gastroesop hageal reflux disease 797497460 K21.9 Well controlled without warning signs on PPI. Prediabetes 823408695 R7 3.03 Due for reassessme nt. Chronic ki dney disease stage 3A 368437075 N18.31 Stable with non reactive urine and good BP control on BB. Will continue current regimen and monitor for now. Pure hypercholesterolemia 196647012 E78.01 LDL at goal. Continue current regimen. Hyperparathyroidism 6699 9008 E21.3 Will reassess in context of CKD. [id number] Mukesh Robertson MD Telehealt h [address] [facility] [address] [place] [address] 03/18/2023 15:26:07 03/19/2023 16:56:42 Acute sinusitis 39720176 J01.90 She will continue to use OTC meds for symptomati c relief. [id number] CRISSY BETANCOURT MD Main Office [address] [facility] [address] [place] [address] 03/20/2023 10:41:43 03/20/2023 12:07:41 Red eye 277511370 H57.89 SYMPTOMS:w hich eye(s)? {{right* l eft bilate ral}}redne ss? {{yes* no} }discharge ? {{yes no*} }crusting or matting on waking? {{yes no*} }exposure to someone with conjunctiv itis? {{yes no*} } POSSIBLE CONTRAINDI CATIONS TO TELEPHONE TREATMENT: eye pain? {{yes* no} }blurry vision? {{yes no*} }recent treatment (within 1 month)? {{yes no}} trauma? {{yes no*} }lupus or rheumatoid arthritis? {{yes no}} PROVIDER ACTION Reviewed nursing notes? {{yes no}} Recommende d action {{appropri ate for telephone treatment needs appointmen t}} Antibiotic treatment {{polytrim erythromy rony ciloxa n other (provider will prescribe) NA}} Pt was provided with erythromyc in ointment to be applied to the right eye [id number] Dannie Moore MD Main Office [address] [facility] [address] [place] [address] 04/05/2023 12:50:16 04/05/2023 14:06:57 Adult health examination 558731206 Z00.00 Immunizati on status updated will screen based on risk factors. Shingrix advised via local pharmacy. Breast, cervical and colon cancer screening utd. Regular dental and ophtho care advised as well as seat belt and sunscreen use. Distracted driving discussed. Pt currently demonstrat es low risk for falls and no significan t cognitive decline. Advance directives in place. Hypertensi ve renal disease 92754409 I12.9 Well controlled continue current regimen. Prediabetes 096690825 R7 3.03 Has been stable, will monitor. Body mass index 25-29 - overweight 076462573 E66.3 Z68.29 Major depr ession single episode, in partial remission 21048144 F32.4 Chronic/st able, and followed/m anaged by psych. Anxiety state 600309791 F41.1 Screening for malignant neoplasm of breast 740001656 Z12.39 Requires a tetanus booster 071754510 Z23 Chronic ki dney disease stage 3A 769250312 N18.31 Stable with non reactive urine and good BP control on BB. Will continue current regimen and monitor for now. [id number] Dannie Moore MD Main Office [address] [address] [place] [address] 09/30/2023 10:47:43 09/30/2023 11:41:27 Hypertensive renal disease 36199873 I12.9 Well controlled continue current regimen. Prediabetes 440849248 R7 3.03 Has been stable, will monitor. Pure hypercholesterolemia 982943827 E78.01 LDL at goal. Continue current regimen. Reassess before next appt. Chronic ki dney disease stage 3A 021588181 N18.31 Stable with non reactive urine and good BP control on BB. Will continue current regimen and monitor for now. [id number] Dannie Moore MD Main Office formerly [facility] [address] [place] [address] 11/13/2023 10:02:32 11/13/2023 10:56:55 Abdominal discomfort 66917117 R10.9 Right lowe r quadrant pain 158085211 R10.31 Sounds abdominal and suspcious for diverticul itis but further evaluation to rule out urologic or musculoske letal etiology needs to be done. Will empiricall y cover with moxifloxac in and see what labs and xray show. Further testing will be needed if pain persists. Diverticul ar disease of colon 062908695 K57.30 [id number] Mukesh Robertson MD Main Office [address] [address] [place] [address] 12/21/2023 11:19:56 12/21/2023 12:05:36 Perforation of tympanic membrane 40939275 H72.92 Healing. No further treatment needed. [id number] Dannie Moore MD Main Office [address] [place] [address] [place] [address] 06/01/2024 13:44:10 06/01/2024 15:15:24 Adult health examination 581745890 Z00.00 Immunizati on status updated will screen based on risk factors. Shingrix advised via local pharmacy. Breast, cervical and colon cancer screening utd. Regular dental and ophtho care advised as well as seat belt and sunscreen use. Distracted driving discussed. Pt currently demonstrat es low risk for falls and no significan t cognitive decline. Advance directives in place. Varicella vaccination 68 878403 Z23 Administra tion of viral vaccine 99200045 Z29.11 Administra tion of pneumococcal vaccine 41204761 Z23 Body mass index 25-29 - overweight 883579292 E66.3 Z68.29 Chronic ki dney disease stage 3A 690722501 N18.31 Stable with non reactive urine and good BP control on BB. Will continue current regimen and monitor for now. Major depr ession in remission 12179540 F32.4 Postoperat rubia hypothyroidism 75467524 E89.0 Doing well, following with endo who is titrating dose. Prediabetes 339405814 R7 3.03 Has been stable, will monitor. Pure hypercholesterolemia 572218076 E78.01 LDL at goal. Continue current regimen. Reassess before next appt. Osteopenia 834924377 M85 .80 Regular weight bearing exercise and adequate dietary Ca/VitD intake advised. Due for BND in 2024. Advance di rective discussed with patient 562773511 Z71.89 Patient is planning on having a meeting with her son and daughter to reaffirm end of life care goal/wishe s. 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 Recom to see ophthalmol ogist in f/u. [id number] Dannie Moore MD Main Office [address] [facility] [address] [place] [address] 12/05/2024 12:54:18 12/05/2024 13:59:04 Hypertensive renal disease 28341341 I12.9 Well controlled continue current regimen. Osteopenia 611908550 M85 .80 Regular weight bearing exercise and adequate dietary Ca/VitD intake advised, appropriat e supplement ation discussed. Due for BND in 2024. Prediabetes 687772242 R7 3.03 Has been stable, will monitor. Pure hypercholesterolemia 577867190 E78.01 LDL at goal. Continue current regimen. Reassess before next appt. Gastroesop hageal reflux disease 690564080 K21.9 Well controlled without warning signs on PPI. Working to try and schedule EGD as well as colonoscop y. [id number] Mukesh Robertson MD Main Office [address] [facility] [address] [facility] [place] [address] 01/16/2025 14:33:21 01/16/2025 15:17:13 Nasal congestion 91259708 R09.81 Influenza caused by Influenza A virus 117690587 J09.X2 She will treat her symptoms; too late to start tamiflu. Cough 86542637 R05.9 Health Concerns Section Related Observation LastModified by Organization Detai ls LastModified Time None Recorded Concern Status LastModified by Organization Details LastModified Time None Recorded Advance Directives Directive Y: Taylor (daughter) and Yemi (son) Payers Encounter Date Sequence Insurance Name Policy Number Policy Nieto Covered Member ID Nieto Member ID Guarantor Name 12/21/2023 1 [employer] MEDICARE ADVANTAGE PLAN (MEDICARE REPLACEMENT HMO) [id number] Amy M M Kittler [id number] Amy M Kittler 06/01/2024 1 [employer] [place] MEDICARE ADVANTAGE PLAN (MEDICARE REPLACEMENT HMO) [id number] Amy M M Kittler [id number] Amy M Kittler 08/30/2024 1 [employer] [place] MEDICARE ADVANTAGE PLAN (MEDICARE REPLACEMENT HMO) [id number] Amy M M Kittler [id number] Amy M Kittler 12/05/2024 1 [place] [id number] Amy M Kittler [id number] Amy M Kittler 01/16/2025 1 [place] Amy Casetler [id number] Amy Torrez Kittler 01/16/2025 2 [place] [id number] Amy M Kittler [id number] Amy M Kittler Notes Date Note Type Note Provider Name and Address Organization Details Recorded Time 12/21/2023 text/html She was using a q-tip after showering 5days ago and slipped and the q-tip was accidentally jammed into her left drum. She saw blood but has not seen any since. Her hearing is not affected. She had some pain but this has mostly resolved. Mukesh Robertson MD [address] [address], [place], [address], [facility] 12/21/2023 13:00:05 06/01/2024 text/html Medicare Annual Wellness VisitReported bypatient.Diet and Nutrition:healthy diet;diet is high in salt Fracture Risk:no history of fractures; no recent explained fracture; no sudden unexplained fractures; no previous musculoskeletal injuries Physical Activity:exercises on a regular basis; recent increase in physical activity; good physical condition Depression Risk:no loss of interest in activities; no significant changes in weight; no sleep disturbances or insomnia; no agitation; no loss of energy; no feelings of worthlessness or guilt; no thoughts of suicide; no history of depression;feels sad, empty, or tearful;history of mood disorders Orientation:no disorientation to time; no disorientation to date; no disorientation to place Concentration and Memory:no decreased concentrating ability; no memory lapses or loss;forgetting words Speech/Motor difficulties:no speech difficulties; no difficulty expressing formulated concepts; no difficulty with fine manipulative tasks; no difficulty writing/copying; no slowed reaction time; does not knock things over when trying to pick them up Hearing:no loss of hearing Vision:no vision problems Activities of Daily Living:able to bathe with limited or no assistance; able to contol urination and bowels; able to dress with limited or no assistance; able to feed self with limited or no assistance; able to get out of chair or bed with limited or no assistance; able to groom with limited or no assistance; able to toilet with limited or no assistance Instrumental Activities of Daily Living:able to do house work with limited or no assistance; able to grocery shop with limited or no assistance; able to manage medications with limited or no assistance; able to manage money with limited or no assistance; able to prepare meals with limited or no assistance; able to use the phone with limited or no assistance Falls Risk Assessment:no frequent falls while walking; no fall in the past year; no fall since last visit; no dizziness/vertigo Home Safety:no unsafe deandra hazzards; no unsafe stairs; working smoke/CO detectors; use of seatbelts; has hand bars in the bathroom/shower; good lighting in the home Dannie Moore MD [address], [address], [facility] 06/01/2024 15:19:32 08/30/2024 text/html 79 year old bonnie le c/o recurrent R. eye redness that she has had twice before,she has been treating it with eye drops she has on hand. This is her 3rd episode in the same eye. Denies fever, chills. Concepción kinsey, [facility] 09/12/2024 10:38:34 12/05/2024 text/html DizzinessReporte d bypatient.Quality:symp toms worse during the day Severity:some effect on daily activities Duration:intermittent episodes lasting:; lasts <5 minutes Context:non-smoker Associated Symptoms:no double vision; no slurred speech; no blurred vision; no vision changes; no foggy vision; no blindnessGERD RefluxReported bypatient.SymptomsAsym ptomatic; no difficulty swallowing; no pain swallowing; no postprandial pain Duration:present 5 or more yearsNotes:Symptoms improved since increasing does 20mg BID. Cough and sore throat are better.HyperlipidemiaR eported bypatient.Type of hyperlipidemia:hyperch olesterolemia Current Therapy:currently taking: (simvastatin 20mg); last cholesterol level: (172); last LDL level: (89); last triglyceride level: (108); last HDL level: (64) Compliance:compliant; compliant with diet;does not exercise Complications:no coronary artery disease; no peripheral artery disease; no cardiovascular disease Risk Factors:hypertension;o besityHypertension F/UReported bypatient.Associated Symptoms:no dizziness; no lightheadedness; no chest pain; no shortness of breath; no palpitations; no edema Lifestyle:not exercising regularly Medications:taking medications as directed; no side effects from medication Dannie Moore MD [address] [facility] [address], [place], [address], [facility] 12/05/2024 13:54:08 01/16/2025 text/html Started with a non-productive cough 4 nights ago and the day before had a mild sore throat. Also lost her voice and only came back today. She took a 20-mg dose of prednisone that she had left over from a bout of bronchitis. Denies f/c but hasn't taken her temp. Took benadryl and sudafed and ibuprofen with some help. Also took tylenol with codeine which gives some help. Mukesh Robertson MD [address] [facility] [address], [place], [address], [facility] 01/16/2025 17:06:33 OBGyn Episode No OBEpisode recorded.
--- OUTSIDE RECORDS SUMMARY | 2025-01-30 17:20 | XMS_ITS | Data Portability ---
Author Organization [place] - [facility], Allergy Address [address] [address] Assessment No assessment recorded. Plan of Treatment [...] Organization Details Recorded Time Dizziness and giddiness 617203781 Active 2020 Dizziness and giddiness ; Note: Date Diagnosed : 11/11/2020 11:47 AM (R42) Not Available [facility] 4 02:56:40 Dysphonia 53137340 Active 2016 Hoarsenes s; Note: Date Diagnosed : 09/07/2017 10:26 AM (R49.0) Not Available [facility] 4 02:56:38 Allergic rhinitis 24390889 Active 2018 Perennial allergic rhinitis; Note: Date Diagnosed : 03/30/2019 10:59 AM (J30.89) Not Available [facility] 4 02:56:39 Gastroeso phageal reflux disease 027440863 Active 2014 Laryngoph aryngeal reflux; Note: Date Diagnosed : 07/11/2015 1:20 PM (530.81) Not Available [facility] 4 02:56:40 Gastroeso phageal reflux disease without esophagit is 865557268 Active 2018 Gastro-es ophageal reflux disease without esophagit is; Note: Date Diagnosed : 03/30/2019 10:56 AM (K21.9) Not Available [facility] 4 02:56:41 Difficult y speaking Active 2014 Muscle tension dysphonia ; Note: Date Diagnosed : 07/11/2015 1:20 PM (784.49) Not Available [facility] 4 02:56:37 Chronic hoarsenes s 28621738525 05 Active 2023 LUIS MANUEL SHELLEY MD [address] [place] [address], [facility] [place], [address] , [place] - [facility] 13:35:09 Chronic cough 87583356 Active 2023 LUIS MANUEL SHELLEY MD [address] [place] [address], [place], [address] , [place] - [facility] 4 13:44:56 Problem Notes None recorded. Procedures Surgical History Date Name Laterality Status Provider Name and Address Organization Details Recorded Time 05/25/2024 FFL_RE completed LUIS MANUEL SHELLEY MD [address] [place] [address], [place], [address], [facility] 05/25/2024 13:35:22 Imaging Results Imaging Date Name Status LastModified by Organiz ation Details LastModified Time 11/11/2020 imaging/diag nostic result completed [email or web address] Information not available 06/21/2024 20:45:05 Procedure Notes None recorded. Medical Equipment None Reported. Allergies Allergen ID Allergen Name Allergen Category Reaction Reaction Severity Criticality Documentation Date Start Date Code Code System Note Provider Name and Address Organization Details Recorded Time 545728 meperidin e hydrochlo ride medicatio n other Not available Not available 03/14/2024 93833 5 RxNorm React ion: unkno wn, unspe cifie d;; Not Available [facility] 4 01:14:58 Medications Name Sig Start Date Stop Date Status Note LastModified by Organization Details LastModified Time prednison e 10 mg tablet 11/11 completed Medicati on ID: 42534 Du ration Value: 12 Brand Name: predniso [...] mg tablet 2014 [place]: 74791 Du ration Value: 5 Brand Name: azithsailaja [...] 24 hr 11/11 completed Medicati on ID: 54642 Du ration Value: 90 Brand Name: metoprol [...] 24 hr 11/11 completed Medicati on ID: 29804 Du ration Value: 90 Brand Name: venlafax ine Send Method: E-Prescr ibed Sub s Allowed: subs OK Medic ationGen ericName : venlafax ine Not Available Not Available Not Available acetamino phen 300 mg-codein e 30 mg tablet 2014 active Medicati on ID: 94630 Du ration Value: 10 Brand Name: acetamin [...] by mouth 2014 active Medicati on ID: 73220 Du ration Value: 30 Prescri bed By [...] dose pack 11/11 completed Medicati on ID: 14339 Du ration Value: 6 Brand Name: methylpr [...] extended release 2014 active Medicati on ID: 18092 Du ration Value: 90 Brand Name: bupropio n HCl Send Method: E-Prescr ibed Sub s Allowed: subs OK Medic ationGen ericName : bupropio n HCl Not Available Not Available Not Available omeprazol e 20 mg tablet,de layed release by mouth 2020 active Medicati on ID: 188498 P rescribe d By Name: Sukumar Lundberg [...] Updated DateTime 05/25/2024 152.4 cm 28.9 kg/m2 85462.67 g Charanjit Gardner [place] - [facility] 05/25/2024 12:55:27 Social History None recorded. Functional Status None recorded. Mental Status None recorded. Family History Nothing Reported. Medical History No medical history recorded. Gynecological HistoryNo gynecological history recorded. Obstetrics History GPAL:G 0 P 0 0 0 0 Past Encounters Encounter ID Performer Location Encounter Start Date Encounter Closed Date Diagnosis/Indication Diagnosis SNOMED-CT Code Diagnosis ICD10 Code Diagnosis Note [id number] LUIS MANUEL SHELLEY MD [facility] [address] [address] 05/25/2024 11:47:16 05/25/2024 13:41:45 Chronic hoarseness 5767942835 105 R49.0 improved. Normal laryngosoc py. Gave reassuranc e there is no vocal cord paralysis. Gastroesop hageal reflux disease without esophagitis 109279072 K21.9 I discussed she could take omeprazole BID for 6 weeks to see if it improves her cough. I would defer to her GI physician. Chronic cough 92668474 R 05.3 see above Health Concerns Section Related Observation LastModified by Organization Detai ls LastModified Time None Recorded Concern Status LastModified by Organization Details LastModified Time None Recorded Advance Directives Directive None Recorded Payers Encounter Date Sequence Insurance Name Policy Number Policy Nieto Covered Member ID Nieto Member ID Guarantor Name 05/25/2024 1 [employer] - MED[employer]VANTAGE PLAN (MEDICARE REPLACEMENT HMO) [id number] 1 Amy Alcantar [id number] Amy Alcantar Notes Date Note Type Note Provider Name and Address Organization Details Recorded Time 05/25/2024 text/html She had a total thyroidectomy in January with Dr. Cole. Her voice was absent for a time after surgery. Her voice has recovered. No dysphagia. No trouble breathing. Has occasional laryngitis. Has GERD and takes omeprazole and clears her throat often. LUIS MANUEL SHELLEY MD [address] [place] [address], [phone], [place] - [facility] 05/25/2024 13:46:19 OBGyn Episode No OBEpisode recorded.
== END 2025-01-30 15:22 | disposition home or self-care (01) ==
LOC: HO.HOP 14:29
PROVIDERS: PCP Pediatrics; Visit Provider Psychiatry & Neurology Psychiatry
DX: F33.41 Major depressive disorder, recurrent, in partial remission (principal); I10 Essential (primary) hypertension
CPT/HCPCS: 99214

== ENCOUNTER → 2025-01-30 14:29 | Outpatient (BNVA) | payer MEDICARE, SELFPAY | PROVIDERS: PCP Pediatrics; Visit Provider Psychiatry & Neurology Psychiatry | DX: F32.4 Major depressive disorder, single episode, in partial remission (principal); F33.42 Major depressive disorder, recurrent, in full remission; I10 Essential (primary) hypertension | CPT/HCPCS: 99212 ==

== ENCOUNTER 2025-05-02 11:29 | Outpatient (REF) | payer MEDICARE, SELFPAY ==
[2025-05-02 12:34] LABS: MANUAL DIFF FLAG NO
[2025-05-02 12:39] LABS: Hematocrit 43.2 % (37.0-47.0); Hemoglobin 14.1 g/dl (12.0-16.0); Imm Gran Abs Auto 0.02 X10*3/uL (0.00-0.03); Imm Gran Pct Auto 0.3 % (0.0-0.4); Lymphocytes Absolute Auto 1.5 X10*3/uL (1.2-4.9); Mean Corpuscular HGB Conc 32.6 g/dl (31.0-35.0); Mean Corpuscular Hemoglobin 29.1 pg (27.0-33.0); Mean Corpuscular Volume 89.1 fL (80.0-98.0); NRBC Abs Auto 0.000 X10*3/uL (0.0-0.012); NRBC Pct Auto 0.0 /100WBC (0.0-0.2); Platelet Count 242 X10*3/uL (160-400); Red Blood Count 4.85 X10*6/uL (4.20-5.50); White Blood Count 6.6 X10*3/uL (4.8-10.8)
[2025-05-02 12:53] LABS: Cholesterol 184 mg/dL (<200); HDL Cholesterol 68 mg/dL (>40); Triglycerides 72 mg/dL (<150)
[2025-05-02 13:28] LABS: Folate 14.4 ng/mL (> or = 4.0); Vitamin B12 448 pg/mL (200-900)
== END 2025-05-02 11:30 | disposition home or self-care (01) ==
LOC: HO.LAB 11:29
PROVIDERS: PCP Pediatrics; Visit Provider Psychiatry & Neurology Psychiatry
DX: F32.4 Major depressive disorder, single episode, in partial remission (principal); E78.00 Pure hypercholesterolemia, unspecified; I10 Essential (primary) hypertension
CPT/HCPCS: 36415; 80061; 82607; 82746; 83090; 85025; 99212

== ENCOUNTER 2025-05-02 11:29 | Outpatient (AMB) | payer MEDICARE, SELFPAY ==
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
--- OUTSIDE RECORDS SUMMARY | 2025-05-02 12:18 | XMS_ITS | Data Portability ---
Author Organization [facility], [facility] Address [address] [place] [address] Care Team Providers Care Firearms Specialist Name Role Phone GOKUL MOORE Primary Care Provider Assessment No assessment recorded. Plan of Treatment Reminders Order Date Submit Date Provider Last Modified By Organization Details Last Modified Time Details Appointments RECHECK 15 2024 11:00A Lore Amos PA-C Not available Not available Not available Lab None recorded . Referral None recorded . Procedures None recorded . Surgeries None recorded . Imaging XR, hip + pelvis, unilater al, 2 or 3 view 2023 024 [facility], [address] [facility] [address], [place], [address], 09/25/2024 12:47:16 Medication Orders None recorded . [...] a4ajBk vP9nXo QUaueC m3YtLR FvZlgJ JJ8mAn HZtai3 3s2196 AC0Kqa H6CUaq kKiQtr MwF INTERFACE [facility] [address], [place], [address], 08/30/2024 17:49:10 08/30/2008/30/2024 XR, hip + pelvi s, unila teral , 2 or 3 view http:/ [email or web address] ?Encry pted=s hAaTro YD8dLq bEUv6g %2BXZw aYqtaq 0bqfl% 2Fg9IQ a4ajBk vP9nXo QUaueC m3YtLR FvZlgJ JJ8mAn HZtai3 8v2336 AC0Kqa H6CUaq kKiQtr MwF INTERFACE [facility] [address], [place], [address], 08/30/2024 17:49:11 Result Notes Documentation Provider Name and Address Organization Details Recorded Time Xr, Hip + Pelvis, Unilateral, 2 Or 3 View : [email or web address] Encrypted=bmAgLkoRE0mDwwQ Uv6g%3UCKvaEvueg4febm%2Fg 0GGn7inAkcP3vTfDRnhoQo7Am SNGxIjjJPN3nMeOJmjd73d785 2MM7JwgY1XZetzInMwsOjG Not Available [facility] 08/30/2024 17:49: 10 Xr, Hip + Pelvis, Unilateral, 2 Or 3 View : [email or web address] Encrypted=orApOmwNZ9pWnjM Uv6g%3DZIndDatxk5gikq%2Fg 0ILt8wcXqtR5vHcWDghsIk6Am EWXhBinQDC4bUwMRyjg50e625 7YM5CozI9ZMputTyGudKiI Not Available [facility] 08/30/2024 17:49: 12 Problems Name Problem SNOMED Code Status Onset Date Resolution Date Notes Provider Name and Address Organization Details Recorded Time No complaints [id number] Active Status : 'A'; Not Available [facility] 09:25:18 Problem Notes None recorded. Procedures Surgical History Date Name Laterality Status Provider Name and Address Organization Details Recorded Time 5 Hip Kenalog 1cc Injection, L/R completed Jerrod Amos PA-C [address] [facility], [place], [address], [facility] 04/04/2025 16:54:07 5 Hip Kenalog 1cc Injection, L/R completed Levar Quijano PA-C [address], [place], [address], [facility] 12/12/2024 15:12:18 4 Hip Kenalog 1cc Injection, L/R completed Jerrod Amos PA-C [address] [facility], [place], [address], [facility] 08/30/2024 13:19:02 4 Hip Kenalog 1cc Injection, L/R completed Jerrod Amos PA-C [address] [facility], [place], [address], [facility] 04/27/2024 07:53:41 4 Sports Shoulder 4&1 completed Jerrod Amos PA-C [address] [facility], [place], [address], [facility] 04/27/2024 07:53:29 Imaging Results None recorded. Procedure Notes None recorded. Medical Equipment None Reported. Allergies Allergen ID Allergen Name Allergen Category Reaction Reaction Severity Criticality Documentation Date Start Date Code Code System Note Provider Name and Address Organization Details Recorded Time 228285 Demerol medicatio n Not available Not available Not available 01/03/20242010 10909 1 RxNorm Aller gyRea ction : 'Skin React ion'; Not Available [facility] 15:26:59 Medications Name Sig Start Date Stop Date Status Note LastModified by Organization Details LastModified Time fluconazole 150 mg tablet PLEASE SEE ATTACHED FOR DETAILED DIRECTION S 08/30 completed Not Available Not Available Not Available prednisone 20 mg tablet TAKE 2 TABLETS BY MOUTH EVERY DAY FOR 5 DAYS active Not Available Not Available No t Available metoprolol succinate ER 100 mg tablet,exte nded release 24 hr active Not Available Not Available Not Available moxifloxaci n 400 mg tablet TAKE 1 TABLET BY MOUTH EVERY DAY FOR 7 DAYS 08/30 completed Not Available Not Available Not Available acetaminoph en 300 mg-codeine 30 mg tablet TAKE 1 TABLET BY MOUTH EVERY 8 HOURS NEEDED FOR 5 DAYS active Not Available Not Available No t Available doxepin 10 mg capsule 08/30 completed Not Available Not Available Not Available butalbital- acetaminoph en-caffeine 50 mg-325 mg-40 mg tablet active Not Available Not Available Not Available levothyroxi ne 100 mcg tablet TAKE 1 TABLET BY MOUTH EVERY DAY active Not Available Not Available No t Available trazodone 100 mg tablet TAKE 1 TABLET BY MOUTH AT BEDTIME NEEDED FOR INSOMNIA active Not Available Not Available No t Available benzonatate 100 mg capsule TAKE 1 [...] Not Available lorazepam 1 mg tablet TAKE HALF TABLET (0.5MG) BY MOUTH 2 TIMES A DAY NEEDED FOR ANXIETY FOR 90 DAYS active Not Available Not Available No [...] Not Available Not Available No t Available Butalbital- APAP-Caffei ne Butalbita l-APAP-Ca ffeine 50-325-40 MG Tablet 08/30 completed Statu s: 'Curr ent'; Not Available Not Available Not Available Tums Tums 500MG Tablet Chewable 01/14 completed Statu s: 'Disc ontin ued'; Not Available Not Available Not Available Vitals Date Recorded Body height Provider Name an d Address Organization Details Last Updated DateTime 12/12/2024 154.94 cm PABLO LAGUERRE [facility] 12/12/2024 13:59:12 Date Recorded Body height Provider Name an d Address Organization Details Last Updated DateTime 04/04/2025 154.94 cm PABOL LAGUERRE [facility] 04/04/2025 14:10:25 Date Recorded Body height Body mass index (BMI) Body weight Provider Name and Address Organization Details Last Updated DateTime 08/30/2024 154.94 cm 28.7 kg/m2 15673.04 g MARY OLIVA [facility] 08/30/2024 17:31:57 Social History None recorded. Functional Status None recorded. Mental Status None recorded. Family History Nothing Reported. Medical History Condition Response Coronary Artery Disease N Anxiety/Depression N Emphysema N COPD N Pacemaker N Vascular Disease N Heart Trouble N Gastrointestinal Disease N Autoimmune disease N Orthotics N Arthritis N Blood Clot N Acid Reflux (GERD) N Cancer N Stroke N Circulation Problems N Rheumatoid Arthritis N Arrhythmia N Headaches N Fibromyalgia N Allergies/Hayfever N Breathing or lung disorders N Nerve Disorders N Thyroid Problems Y Kidney/Bladder Problems N Anemia N Heart Attack (ID) N Cholesterol N Diabetes N Bleeding Disorder N Seizures/Epilepsy N AIDS/HIV N Congestive Heart Failure (CHF) N Asthma N Peripheral Vascular Disease N Sleep Apnea N Hepatitis N Heart Disease N Pulmonary Embolism N Hypertension N Osteoporosis N Gynecological HistoryNo gynecological history recorded. Obstetrics History GPAL:G 0 P 0 0 0 0 Past Encounters Encounter ID Performer Location Encounter Start Date Encounter Closed Date Diagnosis/Indication Diagnosis SNOMED-CT Code Diagnosis ICD10 Code Diagnosis Note [id number] ITALIA Santos [address] [place] [address] 04/27/2024 10:59:30 05/24/2024 13:08:16 Trochanteric bursitis of right hip [id number] 84770 M70.61 Tendinitis of right rotator cuff [id number] 2186645 M67.667 [id number] ITALIA Santos [address] [place] [address] 08/30/2024 17:15:12 09/25/2024 12:47:16 Trochanteric bursitis of right hip [id number] 09906 M70.61 [id number] ITALIA Saldana [address] [place] [address] 12/12/2024 13:51:57 12/28/2024 15:25:06 Trochanteric bursitis of right hip [id number] 14734 M70.61 You have been provided with a [...] following the injection. This is called a flare . To help minimize the chances of this, please see the post-injec tion instructio ns above.Ther e is a less than 1% chance of an infection. If you notice any signs of infection (redness, warmth, drainage, fever greater than 100 degrees) please call our office or contact us through the portal [facility]. [id number] ITALIA Santos [address] [place] [address] 04/04/2025 14:06:20 04/10/2025 10:14:00 Trochanteric bursitis of right hip [id number] 90576 M70.61 Health Concerns Section Related Observation LastModified by Organization Tiffany allison LastModified Time None Recorded Concern Status LastModified by Organization Details LastModified Time None Recorded Advance Directives Directive None Recorded Payers Insurance Date Sequence Insurance Name Policy Number Policy Nieto Covered Member ID Nieto Member ID Guarantor Name 04/10/2025 2 [place] [id number] Amy Palomaresr [id number] Amy Alcantar 04/04/2025 1 [employer] [place] MEDICARE ADVANTAGE PLAN (MEDICARE REPLACEMENT HMO) [id number] Amy Palomaresr [id number] Amy Palomaresr 04/04/2025 1 [place] [employer] Amy Alcantar [id number] Amy Alcantar Notes Date Note Type Note Provider Name and Address Organization Details Recorded Time 04/27/2024 text/html I am seeing the patient today under the supervision of Dr. Rodriguez who was available but who did not see the patient. Reason For Visit The patient presents today for follow-up. Has known trochanteric bursitis of the right hip. Has had previous cortisone injection which [...] Gait is symmetric. Physician examination of the right hip reveals the skin to be intact, normal musculature, continued tenderness on palpation over the greater trochanter. No pain with range of motion of the hip, has full range of motion, no crepitus noted with range of motion. No significant pain with straight leg raise. Assessment Symptomatic trochanteric bursitis of the right hip. Plan I reviewed the findings with [...] done well with conservative management for their right shoulder pain. Has had increasing discomfort over [...] limits. Assessment Rotator cuff tendonitis of the right shoulder. plan The patient has done well [...] will follow up prn. Jerrod Amos PA-C [address] [facility] [address], [place], [address], [facility] 04/27/2024 12:41:15 08/30/2024 text/html I am seeing the patient today under the supervision of Dr. Rodriguez who was available but who did not see the patient. Reason For VisitThe patient presents today for follow-up. Has known trochanteric bursitis of the right hip. Has had previous cortisone injection which [...] Gait is symmetric. Physician examination of the right hip reveals the skin to be intact, normal musculature, continued tenderness on palpation over the greater trochanter. No pain with range of motion of the hip, has full range of motion, no crepitus noted with range of motion. No significant pain with straight leg raise. AssessmentSymptomat ic trochanteric bursitis of the right hip. Plan I reviewed the findings with the patient, discussed different treatment options. The patient wishes to proceed with cortisone injection. Prior to giving injection, does understand the risks. Under sterile technique, given a cortisone injection with 4 cc 1/4 percent Marcaine, 40 mgs Kenalog. Tolerated this well. Monitor the effects and follow-up as needed. Jerrod Amos PA-C [address], [place], [address], [facility] 08/31/2024 12:20:23 12/12/2024 text/html I am seeing the patient today under the supervision of who was available but who did not see the patient. The patient presents today for follow-up. Has known trochanteric bursitis of the Right hip. Has had previous cortisone injection which [...] raise. ASSESSMENT Symptomatic trochanteric bursitis of the Right hip. PLAN I reviewed the findings with the patient, discussed different treatment options which included medications physical therapy and injections The patient wishes to proceed with cortisone injection. Please see procedure note. Monitor the effects and follow-up as directed. Levar Quijano PA-C [address], [place], [address], [facility] 12/12/2024 15:13:12 04/04/2025 text/html I am seeing the patient today under the supervision of Dr. Rodriguez who was available but who did not see the patient. The patient presents today for follow-up. Has known trochanteric bursitis of the Right hip. Has had previous cortisone injection which gave relief until recently. Has had no recent trauma, no fevers or chills, no neurovascular changes. Presents today for further evaluation. PAST MEDICAL/SURGICAL HISTORYPast medical history is reviewed per intake sheet. PHYSICAL FINDINGSOn physical examination, the patient is well appearing [...] No significant pain with straight leg raise. ASSESSMENTSymptomat ic trochanteric bursitis of the Right hip. RICKYI reviewed the findings with the patient, discussed different treatment options which included medications physical therapy and injections The patient wishes to proceed with cortisone injection. Please see procedure note. Monitor the effects and follow-up as directed. Jerrod Amos PA-C [address] [facility] [address], [place], [address], [facility] 04/04/2025 16:54:29 OBGyn Episode No OBEpisode recorded.
== END 2025-05-02 13:01 | disposition home or self-care (01) ==
LOC: HO.HOP 11:29
PROVIDERS: PCP Pediatrics; Visit Provider Psychiatry & Neurology Psychiatry
DX: F33.42 Major depressive disorder, recurrent, in full remission (principal); I10 Essential (primary) hypertension
CPT/HCPCS: 90833; 99213

== ENCOUNTER 2025-08-06 10:30 | Outpatient (AMB) | payer MEDICARE, SELFPAY ==
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
--- OUTSIDE RECORDS SUMMARY | 2025-08-06 12:24 | XMS_ITS | Data Portability ---
Author Organization [facility], Main Office Address [address] [facility] [address] [place] [id number] Care Team Providers Care Vessel Crew Member Name Role Phone DANNIE MOORE Primary Care Provider [phone] BETHEL SAMUEL Membership Sales Representative WYATT GAYLE Closer On KONRAD HADDAD Machine Wiper [phone] MELE ZAMAN Psychiatrist SANDRA AWAD Hand Surgeon JOSHUA ROBERTS Orthopedic Surgeon RIZWAN DANIELLE Director Of Student Services YUMIKO RAYMOND [employer] [phone] GAMALIEL MEIER General Surgeon TRISTEN QUEZADA Leaf Coverer [facility] (ALLREFERRALS) Orthopedic Surgeon Assessment No assessment recorded. Plan of Treatment Reminders Order Date Submit Date Provider Last Modified By Organization Details Last Modified Time Details Appointments None recorded. Lab HbA1c (hemoglobin A1c), blood 2024 025 TANJA [facility] (Centralized Electronic Ordering - All Locations), Patient Can Go To The Location Of Their Choice, 13:57:36 CMP, serum or plasma 2024 025 TANJA [facility] (Centralized Electronic Ordering - All Locations), Patient Can Go To The Location Of Their Choice, 13:57:35 urinalysis, complete 2024 TANJA [facility] (Centralized Electronic Ordering - All Locations), Patient Can Go To The Location Of Their Choice, 5 13:57:35 phosphorus, serum or plasma 2024 ROSIE [facility] (Centralized Electronic Ordering - All Locations), Patient Can Go To The Location Of Their Choice, 5 13:57:35 noninvasive colorectal cancer DNA + occult blood screening, QL, stool 2024 ROSIE [facility], [address], [address], [place], [address], 5 05:15:36 rapid flu (A+B) 2024 025 TANJA In-Office Order, Internal Use Only DO Not Attach Compendium DO Not Attach Compendium, Do Not Delete/merge, [id number] 5 15:09:11 rapid SARS CoV 2 Ag, QL IA, respiratory specimen 2024 025 TANJA In-Office Order, Internal Use Only DO Not Attach Compendium DO Not Attach Compendium, Do Not Delete/merge, [id number] 5 15:02:51 HbA1c (hemoglobin A1c), blood 2023 024 [facility] Patient Can Go To The Location Of Their Choice, 4 06:08:20 CMP, serum or plasma 2023 024 TANJA [facility] (Centralized Electronic Ordering - All Locations), Patient Can Go To The Location Of Their Choice, 4 06:08:20 TSH + free T4, serum 2023 024 TANJA [facility] (Centralized Electronic Ordering - All Locations), Patient Can Go To The Location Of Their Choice, 4 06:08:18 Referral nutritionis t/dietitian referral 2024 025 [email or web address] Not available 08/05/202 5 15:07:39 orthopedic surgeon referral - for right shoulder pain eval 2024 025 liane [facility], [address], [facility] [address], [place], [address], 5 08:58:26 nutritionis t/dietitian referral 2023 024 liane Not available 4 15:19:44 Procedures None recorded. Surgeries None recorded. Imaging MAMMO, screening, bilateral - Perform Diagnostic Mammogram and Breast Ultrasound if needed / Perform Ultrasound Guided Aspiration and/or Breast Biopsy if warranted 2024 025 [email or web address] [facility], [address] [place] [address], [address], 5 14:05:11 Medication Orders prednisone 20 mg tablet 2024 025 [facility] #[id number], [address] [place] [address], [address], 5 05:01:23 acetaminoph en 300 mg-codeine 30 mg tablet 2024 025 [facility] #[id number], [address] [place] [address], [address], 5 05:01:23 erythromyci n 5 mg/gram (0.5 %) eye ointment 2023 024 liane [facility] # [id number], [address] [place], [address], 5 13:18:38 Patient TargetsNo targets recorded. Patient Instructions Encounter Date Encounter Id Patient Instructions Last Modified By Organization Details Last Modified Time 06/01/2024 [id number] advance care planning: care instructions fidelina Not available 06/01/2024 15:08:57 high cholesterol: care instructions danielowski Not available 06/01/2024 15:08:57 preventing falls: care instructions danielowski Not available 06/01/2024 15:08:57 well visit, over 65: care instructions awychowski Not available 06/01/2024 15:08:57 When You Want to Lose Weight: Care Instructions awychowski Not available 06/01/2024 15:08:56 Nutrition Referral and Weight Management Follow-up Information awychowski Not available 06/01/2024 15:08:57 01/16/2025 [id number] cough: care instructions daisynneraheidyo Not available 01/16/2025 17:05:06 06/05/2025 [id number] advance care planning: care instructions awychowski Not available 06/05/2025 13:57:21 high cholesterol: care instructions awychowski Not available 06/05/2025 13:57:21 preventing falls: care instructions awychowski Not available 06/05/2025 13:57:21 well visit, over 65: care instructions awychowski Not available 06/05/2025 13:57:20 Colorectal Cancer Screening: Care Instructions awychowski Not available 06/05/2025 13:57:20 When You Want to Lose Weight: Care Instructions awychowski Not available 06/05/2025 13:57:21 Nutrition Referral and Weight Management Follow-up Information awychowski Not available 06/05/2025 13:57:21 biceps tendinitis: exercises awychowski Not available 06/05/2025 13:57:20 shoulder bursitis: exercises awychowski Not available 06/05/2025 13:57:20 Reason for Referral Client Development Consultant/dietitian Refer ral for Body mass index 25-29 - overweight Referring Physician: Family Min Narvaez, Encounter Date: 06/01/2024 Client Development Consultant/dietitian Refer ral for Body mass index 25-29 - overweight Referring Physician: Family Min Narvaez, Encounter Date: 06/05/2025 Orthopedic Surgeon Referral for Pain of right shoulder joint for right shoulder pain eval Referring Physician: Family Min Narvaez, Encounter Date: 06/05/2025 Results Created Date Observation Date Name Description Value Unit Range Abnormal Flag Note LastModifiedBy Organization Detail LastModifiedTime 10/10/20 24 10/11/2024 TSH+F REE T4 TSH 1.270 uIU/m L 0.450- 4.500 normal Not Available [facility] ([facility]) [address] [place], [address], 10/11/2024 06:08:18 10/10/20 24 10/11/2024 TSH+F REE T4 T4,free(dire ct) 1.61 NG/dL 0.82-1 .77 normal Not Available [facility] ([facility]) [address] [place], [address], 10/11/2024 06:08:18 10/10/20 24 10/10/2024 COMP. METAB OLIC PANEL (14) glucose 117 mg/dL 70-99 above high normal Not Available [facility] ([facility]) [address] [place], [address], 10/11/2024 06:08:19 10/10/20 24 10/10/2024 COMP. METAB OLIC PANEL (14) BUN 17 mg/dL 8-27 normal Not Available [facility] ([facility]) [address] [place], [address], 10/11/2024 06:08:19 10/10/20 24 10/10/2024 COMP. METAB OLIC PANEL (14) creatinine 1.05 mg/dL 0.57-1 .00 above high normal Not Available [facility] ([facility]) [address] [place], [address], 10/11/2024 06:08:19 10/10/20 24 10/10/2024 COMP. METAB OLIC PANEL (14) eGFR 55 mL/mi n/1.7 3 >59 below low normal Not Available [facility] ([facility]) [address] [place], [address], 10/11/2024 06:08:19 10/10/20 24 10/10/2024 COMP. METAB OLIC PANEL (14) BUN/creatini ne ratio 16 12-28 normal Not Available [facility] ([facility]) [address], [place], [address], 10/11/2024 06:08:19 10/10/20 24 10/10/2024 COMP. METAB OLIC PANEL (14) sodium 143 mmol/ L 134-14 4 normal Not Available [facility] ([facility]) [address] [place], [address], 10/11/2024 06:08:19 10/10/20 24 10/10/2024 COMP. METAB OLIC PANEL (14) potassium 4.7 mmol/ L 3.5-5. 2 normal Not Available [facility] ([facility]) [address] [place], [address], 10/11/2024 06:08:19 10/10/20 24 10/10/2024 COMP. METAB OLIC PANEL (14) chloride 103 mmol/ L 96-106 normal Not Available [facility] ([facility]) [address] [place], [address], 10/11/2024 06:08:19 10/10/20 24 10/10/2024 COMP. METAB OLIC PANEL (14) carbon dioxide, total 23 mmol/ L 20-29 normal Not Available [facility] ([facility]) [address] [place], [address], 10/11/2024 06:08:19 10/10/20 24 10/10/2024 COMP. METAB OLIC PANEL (14) calcium 9.5 mg/dL 8.7-10 .3 normal Not Available [facility] ([facility]) [address] [place], [address], 10/11/2024 06:08:19 10/10/20 24 10/10/2024 COMP. METAB OLIC PANEL (14) protein, total 6.2 g/dL 6.0-8. 5 normal Not Available [facility] ([facility]) [address] [place] [place], [address], 10/11/2024 06:08:19 10/10/20 24 10/10/2024 COMP. METAB OLIC PANEL (14) albumin 4.5 g/dL 3.8-4. 8 normal Not Available [facility] ([facility]) [address] [place], [address], 10/11/2024 06:08:19 10/10/20 24 10/10/2024 COMP. METAB OLIC PANEL (14) globulin, total 1.7 g/dL 1.5-4. 5 Not Available [facility] ([facility]) [address] [place], [address], 10/11/2024 06:08:19 10/10/20 24 10/10/2024 COMP. METAB OLIC PANEL (14) bilirubin, total 0.3 mg/dL 0.0-1. 2 normal Not Available [facility] ([facility]) [address] [place], [address], 10/11/2024 06:08:19 10/10/20 24 10/10/2024 COMP. METAB OLIC PANEL (14) alkaline phosphatase 95 IU/L 44-121 normal Not Available [facility] ([facility]) [address] [place], [address], 10/11/2024 06:08:19 10/10/20 24 10/10/2024 COMP. METAB OLIC PANEL (14) AST (SGOT) 18 IU/L 0-40 normal Not Available [facility] ([facility] [address] [facility] [place], [address], 10/11/2024 06:08:19 10/10/20 24 10/10/2024 COMP. METAB OLIC PANEL (14) ALT (SGPT) 17 IU/L 0-32 normal Not Available [facility] ([facility]) [address] [facility] [place], [address], 10/11/2024 06:08:19 10/10/20 24 10/10/2024 HEMOG LOBIN A1C hemoglobin A1C 6.0 % 4.8-5. 6 above high normal Predi abete s: 5.7 - 6.4 Diabe sachin: >6.4 Glyce amie contr ol for adult s with diabe sachin: <7.0 Not Available [facility] ([facility]) [address] [facility], [place], [address], 10/11/2024 06:08:20 01/17/20 25 01/16/2025 rapid flu (A+B) Flu A positi ve Not Available In-Office Order Internal Use Only DO Not Attach Compendium DO Not Attach Compendium, Do Not Delete/merge, 01/16/2025 14:36:28 01/17/20 25 01/16/2025 rapid flu (A+B) Flu B negati ve Not Available In-Office Order Internal Use Only DO Not Attach Compendium DO Not Attach Compendium, Do Not Delete/merge, 01/16/2025 14:36:28 01/17/20 25 01/16/2025 rapid SARS CoV 2 Ag, QL IA, respi rator y speci men RAPID SARS COV 2 negati ve Not Available In-Office Order Internal Use Only DO Not Attach Compendium DO Not Attach Compendium, Do Not Delete/merge, 01/16/2025 14:36:40 07/03/20 25 07/03/2025 COLOG UARD cologuard result reportable NEGATI VE negati ve normal The Colog uard Plus (TM) test was perfo rmed on this speci men. NEGAT ERICKA TEST RESUL T. A negat ericka (norm al) Colog uard Plus resul t means the patie nt has a less- than- avera ge chanc e of havin g color ectal cance r (CRC) or advan austen preca ncer (poly ps or lesio ns that could becom e cance r). Negat ericka is the afsaneh l value (refe rence range ) for this assay . Guide lines recom mend ritakamala rosasg again 3 years after a negat ericka Colog uard Plus resul t. Atul nued scree brandon incre ases the [facility] department e of findi ng CRC early or preve nting it entir mejia. A clini nicolas valid ation study showe d the Colog uard Plus test is effec tive at [facility] g out CRC. Out of every 10,00 0 patie nts testi ng negat ericka, appro ximat mejia 2 will be false ly reass ured that they do not have CRC, and out of every 100 patie nts testi ng negat ericka, appro ximat mejia 7 patie nts will be false ly reass ured they do not have advan austen preca ncer. TEST DESCR IPTIO N: The Colog uard Plus test is a multi -targ et stool DNA (mt-s DNA) test that maria luisa zes DNA and hemog lobin bioma rkers in stool . It uses a propr ietar y algor ithm to quali tativ mejia detec t CRC and advan austen preca ncer. It is FDA-a pprov ed and indic ated for use in adult s 45 years or older at avera ge risk for CRC. A posit ericka (abno rmal) resul t shoul d be follo wed by a colon oscop y. Patie nts with a negat ericka (norm al) resul t shoul d scree n again in 3 years . False posit ericka and false negat ericka resul ts may occur . The USPST F recom mends the Colog uard test as a CRC scree brandon optio n. Their model ing estim ates that scree brandon with the test every 3 years from ages 45-85 could preve nt up to 73% of CRC and avoid up to 85% of CRC s. A 18, 1-pat ient clini nicolas trial found the Colog uard Plus test effec tivel y detec ts CRC and preca ncer. The study found the test was 95% sensi tive for CRC, 43% sensi tive for advan austen preca ncer, and had a 91% speci ficit y ([place] [facility] jeferson Addison ure. Exact [employer]ien [employer] [employer] ratio n. [place], [place] Visit www.[facility] FXTripcom /abou t/acc uracy -sens itivi ty-sp [facility] for more test infor bel n, refer georgette matthews ngs, and preca ution s. Not Available [facility] [address], [place], [address], 07/11/2025 05:15:36 10/31/20 24 10/31/2024 MAMMO , scree brandon, [...] raphic screen ing BI-RAD S: 1 (Negat ericka) Lay letter mailed to michaela cespedes WSN: [id number] Orderi ng Physic marika: Dannie Dunn Dictat ed By: Camille Weeks MD, I Dictat ed Date/T tania: 3:12 pm Review ed By: Camille Weeks MD, I Signed By: Camille Weeks MD, I Signed Date/T tania: 3:12 pm Transc ribed By: BENNIE Transc riptio n Date/T tania: 3:09 pm Birads : Michaela cespedes Class: Outpat ient [facility] (Outpt Imaging) [address] [place] [address], [address], 12/05/2024 13:32:42 10/31/20 24 10/31/2024 MAMMO , scree brandon, digit al, bilat eral No observ ation record ed. [facility] [address], [place], [address], 12/05/2024 13:32:42 01/20/20 25 01/19/2025 XR, chest [...] IMPRES EMILY: No acute abnorm ality. WSN: [id number] Orderi ng Physic marika: Mukesh Kevin Dictat ed By: Alan Valerio MD Dictat ed Date/T tania: 1:37 pm Review ed By: Alan Valerio MD Signed By: Alan Valerio MD Signed Date/T tania: 1:37 pm Transc ribed By: BENNIE Transc ribed Date/T tania: 1:36 pm Patien t Class: Outpat ient [facility] (Outpt Imaging) [address] [place], [address], 06/05/2025 13:31:27 03/18/20 25 03/06/2025 bone densi ty No observ ation record ed. [facility] [address], [place], [address], 06/05/2025 13:31:23 Result Notes Documentation Provider Name and Address Organization Details Recorded Time Mammo, Screening, Digital, Bilateral : PROCEDURE: MM Digital Mammo Screening INDICATION: Screening for breast cancer. No known palpable abnormalities. COMPARISON: BBWC and REYES dating back to 10/22/2021. TECHNIQUE: Full-field digital CC and MLO 3D tomosynthesis images of both breasts were acquired. Computer-aided detection (CAD) was utilized in the interpretation of this study. DENSITY: There are scattered areas of fibroglandular density. FINDINGS: No suspicious masses, suspicious microcalcifications, or areas of architectural distortion are seen in either breast to suggest malignancy. IMPRESSION: No mammographic evidence of malignancy. RECOMMENDATION: Annual mammographic screening BI-RADS: 1 (Negative) Lay letter mailed to patient WSN: [id number] Ordering Physician: Dannie Moore Dictated By: Camille Weeks MD, I Dictated Date/Time: 10/31/24 3:12 pm Reviewed By: Camille Weeks MD, I Signed By: Camille Weeks MD, I Signed Date/Time: 10/31/24 3:12 pm Transcribed By: BENNIE Hr Consultant Date/Time: 10/31/24 3:09 pm Birads: Patient Class: Outpatient Dannie Moore MD [address], [address], [facility] 12/05/2024 13:32:42 Xr, Chest, 2 View : Chest 2 Views Frontal and Lat Reason: Chronic cough COMPARISON: 08/26/2022 FINDINGS: LINES AND TUBES: None. LUNGS AND PLEURA: Clear lungs. Normal pulmonary vascularity. No pleural effusion. No pneumothorax. HEART, MEDIASTINUM AND SILVIANO: Heart is normal in size. Normal mediastinal and hilar contour. BONES AND SOFT TISSUES: There are degenerative changes of the thoracic spine. IMPRESSION: No acute abnormality. WSN: [id number] Ordering Physician: Mukesh Robertson Dictated By: Alan Burrows MD Dictated Date/Time: 01/19/25 1:37 pm Reviewed By: Alan Burrows MD Signed By: Alan Burrows MD Signed Date/Time: 01/19/25 1:37 pm Transcribed By: BENNIE Transcribed Date/Time: 01/19/25 1:36 pm Patient Class: Outpatient Dannie Moore MD [address], [address], [facility] 06/05/2025 13:31:27 Problems Name Problem SNOMED Code Status Onset Date Resolution Date Notes Provider Name and Address Organization Details Recorded Time Acute pharyngi tis [id number] Completed 06/12/2015 Dannie Moore MD [address], [place], [address] , [facility] 6 10:14:24 Laryngit is 71620477 Completed 02/24/2021 Dannie Moore MD [address], [place], [address] , [facility] 1 14:31:43 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 06/12/2015 s/p gilbert -Paula Moore MD [address], [place], [address] , [facility] 6 10:14:24 Osteopen ia 858412933 Completed 11/20/2018 Dannie Moore MD [address], [place], [address] , [facility] 9 20:53:35 Acute pharyngi tis 406206111 Completed 03/01/2016 Dannie Moore MD [address], [place], [address] , [facility] 6 10:14:24 Cough 05155940 Completed 06/26/2016 Dannie Moore MD [address], [place], [address] , [facility] 6 10:14:24 Recurren t sinusiti s 903091166 Active Kayleen Ibrahim null, [facility] 1 10:09:05 Low back pain 106473784 Active Kayleen Ibrahim null, [facility] 1 10:09:05 Inflamma tion of sacroili ac joint 20796210 Completed 07/01/2017 Dannie Moore MD [address] [facility] [address], [place], [address] , [facility] 7 11:43:30 Anxiety state 817234295 Active 2011 Nathalia Duron null, [facility] 0 08:50:09 Allergic rhinitis 39081540 Active 2011 Nathalia Oliverio null, [facility] 0 08:50:09 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 Kayleen Ibrahim null, [facility] 1 10:09:05 Borderli ne glaucoma Active 2011 Nathaliachalino Duron [facility] 0 08:50:09 Sinus node dysfunct ion 45126655 Active 2011 Nathaliachalino Duron [facility] 0 08:50:09 Influenz a vaccine needed 93563322221 06 Completed 201105/15/2014 RECORDED 06/29/20 12 10:46AM BY PETTY NESS MA, OFFICE VISIT Dannie Moore MD [address] [address], [place], [address] , [facility] 6 10:14:24 Influenz a vaccine needed 74658325325 06 Completed 201106/11/2014 RECORDED 06/29/20 12 10:46AM BY PETTY NESS MA, OFFICE VISIT Dannie Moore MD [address] [address], [place], [address] , [facility] 6 10:14:24 Gastroes ophageal reflux disease 756069258 Completed 201105/15/2014 RECORDED 07/26/20 12 9:11AM BY PETTY NESS MA, ANNOTATI ON/ADDEN DUM Dannie Moore MD [address] [facility] [address], [place], [address] , [facility] 6 10:14:24 Hypercho lesterol emia 78144837 Completed 201105/15/2014 RECORDED 07/26/20 12 9:12AM BY PETTY NESS MA, ANNOTATI ON/ADDEN DUM Dannie Moore MD [address] [facility] [address], [place], [address] , [facility] 6 10:14:24 Active or passive immuniza tion Completed 201105/15/2014 RECORDED 07/26/20 12 9:57AM BY DANNIE Maciel MD, OFFICE VISIT Dannie Moore MD [address] [address], [place], [address] , [facility] 6 10:14:24 Gastroes ophageal reflux disease 157241975 Completed 201106/11/2014 RECORDED 07/26/20 12 9:11AM BY PETTY NESS MA, ANNOTATI ON/ADDEN DUM Dannie Moore MD [address] [address], [place], [address] , [facility] 6 10:14:24 Hypercho lesterol emia 13735440 Completed 201106/11/2014 RECORDED 07/26/20 12 9:12AM BY PETTY NESS MA, ANNOTATI ON/ADDEN DUM Dannie Moore MD [address] [facility] [address], [place], [address] , [facility] 6 10:14:24 Active or passive immuniza tion Completed 201106/11/2014 RECORDED 07/26/20 12 9:57AM BY DANNIE Maciel MD, OFFICE VISIT Dannie Moore MD [address] [address], [place], [address] , [facility] 6 10:14:24 Tobacco user [id number] Completed 201205/15/2014 RECORDED 03/06/20 13 9:53AM BY PETTY NESS MA, SYARA ON/VALERY Moore MD [address] [facility] [address], [place], [address] , [facility] 6 10:14:24 History of clinical finding in subject 400177950 Completed 201206/12/2015 RECORDED 03/06/20 13 9:53AM BY PETTY NESS MA, SAYRA ON/VALERY Moore MD [address] [facility] [address], [place], [address] , [facility] 6 10:14:24 Bursitis 21443210 Completed 201205/15/2014 IMPRESSI ON: PRINTED INFO PROVIDED FOR HOME THERAPY. TO RHEUM IF PERSISTA NT/WORSE ; RECORDED 03/06/20 13 9:53AM BY PETTY NESS MA, SAYRA ON/VALERY Moore MD [address] [facility] [address], [place], [address] , [facility] 6 10:14:24 Acute upper respirat ory infectio n 65551361 Completed 201205/15/2014 IMPRESSI ON: SOUNDS VIRAL AND LIKELY RESOLVIN G. CALL IF PERSISTA NT/WORSE .; RECORDED 03/06/20 13 9:53AM BY PETTY NESS MA, ANNOTATI ON/VALERY Moore MD [address], [place], [address] , [facility] 6 10:14:24 Tobacco user [id number] Completed 201206/11/2014 RECORDED 03/06/20 13 9:53AM BY PETTY NESS MA, ANNOTATI ON/VALERY Moore MD [address] [facility] [address], [place], [address] , [facility] 6 10:14:24 Bursitis 57760591 Completed 201206/11/2014 IMPRESSI ON: PRINTED INFO PROVIDED FOR HOME THERAPY. TO RHEUM IF PERSISTA NT/WORSE ; RECORDED 03/06/20 13 9:53AM BY PETTY NESS MA, SAYRA ON/VALERY Moore MD [address] [facility] [address], [place], [address] , [facility] 6 10:14:24 Acute upper respirat ory infectio n 91136592 Completed 201206/11/2014 IMPRESSI ON: SOUNDS VIRAL AND LIKELY RESOLVIN G. CALL IF PERSISTA NT/WORSE .; RECORDED 03/06/20 13 9:53AM BY PETTY NESS MA, ANNOTATI ON/VALERY Moore MD [address] [facility] [address], [place], [address] , [facility] 6 10:14:24 Family history of breast cancer 995974433 [facility] Adult health examinat ion Completed 201205/15/2014 IMPRESSI ON: WILL UPDATE IMMUNIZA TION STATUS (ZOSTAVA X VACCINE ADVISED) AND SCREEN BASED ON RISK FACTORS. REGULAR DENTAL CARE AND SEATBELT USE ADVISED. DISTRACT ED DRIVING DISCUSSE D. ROUTINE SALES AND SERVICE CHANGE LEADER CARE UTD VIA DR SAMUEL. TOBIN FOR COLONOSO CPY DUE THIS SUMMER.; RECORDED 08/04/20 13 1:04PM BY PETTY NESS MA, ANNOTATI ON/VALERY Moore MD [address] [facility] [address], [place], [address] , [facility] 6 10:14:24 Screenin g for malignan t neoplasm of breast Completed 201205/15/2014 RECORDED 08/04/20 13 1:04PM BY PETTY NESS MA, ANNOTATI ON/VALERY Moore MD [address] [facility] [address], [place] [place], [address] , [facility] [place] 6 10:14:24 Plantar nerve lesion [id number] Completed 201205/15/2014 IMPRESSI ON: PT HAS HISTORY OF THIS DIAGNOSI S AND IS REQUESTI NG PODIATRY CONSULTA TION. SHE WILL ARRANGE. ; RECORDED 08/04/20 13 1:04PM BY PETTY NESS MA, ANNOTATI ON/VALERY Moore MD [address] [facility] [address], [place], [address] , [facility] [place] 6 10:14:24 Administ ration of diphther ia and tetanus vaccine Completed 201205/15/2014 RECORDED 08/04/20 13 1:04PM BY PETTY NESS MA, ANNOTATI ON/VALERY Moore MD [address] [facility] [address], [place], [address] , [facility] [place] 6 10:14:24 Plantar nerve lesion [id number] Completed 201206/11/2014 IMPRESSI ON: PT HAS HISTORY OF THIS DIAGNOSI S AND IS REQUESTI NG PODIATRY CONSULTA TION. SHE WILL ARRANGE. ; RECORDED 08/04/20 13 1:04PM BY PETTY NESS MA, ANNOTATI ON/VALERY Moore MD [address] [facility] [address], [place], [address] , [facility] [place] 6 10:14:24 Administ ration of diphther ia and tetanus vaccine Completed 201206/11/2014 RECORDED 08/04/20 13 1:04PM BY PETTY NESS MA, ANNOTATI ON/VALERY Moore MD [address] [facility] [address], [place], [address] , [facility] [place] 6 10:14:24 Screenin g for malignan t neoplasm of colon Completed 201205/15/2014 RECORDED 10/16/20 13 8:49AM BY PETTY NESS MA, ANNOTATI ON/VALERY Moore MD [address], [place], [address] , [facility] [place] 6 10:14:24 Screenin g for malignan t neoplasm of colon Completed 201206/11/2014 RECORDED 10/16/20 13 8:49AM BY PETTY NESS MA, ANNOTATI ON/VALERY Moore MD [address], [place], [address] , [facility] [place] 6 10:14:24 Shoulder joint pain [id number] Completed 201305/15/2014 IMPRESSI ON: SUSPECT BURSITIS VS ROTATOR CUFF TENDINOP ATHY. GIVEN LACK OF IMPACT HISTORY WILL DEFER IMAGING TO [facility]. HAS NAPROXER N AT HOME WILL TRY PAIN MED AT BEDTIME TO HELP WITH SLEEP WHILE WAITING FOR ORTHO.; RECORDED 12/11/19 14 1:12PM BY PETTY NESS MA, SAYRA ON/VALERY Moore MD [address], [place], [address] , [facility] [place] 6 10:14:24 Shoulder joint pain [id number] Completed 201306/11/2014 IMPRESSI ON: SUSPECT BURSITIS VS ROTATOR CUFF TENDINOP ATHY. GIVEN LACK OF IMPACT HISTORY WILL DEFER IMAGING TO [facility]. HAS NAPROXER N AT HOME WILL TRY PAIN MED AT BEDTIME TO HELP WITH SLEEP WHILE WAITING FOR ORTHO.; RECORDED 12/11/19 14 1:12PM BY PETTY NESS MA, SAYRA ON/VALERY Moore MD [address], [place], [address] , [facility] [place] 6 10:14:24 Dysthymi a [id number] Completed 201306/26/2016 RECORDED 03/02/20 14 1:13PM BY PETTY NESS MA, OFFICE VISIT Dannie Moore MD [address] [facility] [address], [place], [address] , [facility] [place] 6 10:14:24 Asthma [id number] Completed 201307/01/2017 Dannie Moore MD [address] [address], [place], [address] , [facility] [place] 7 11:42:26 Headache 11066670 Completed 201306/01/2024 Dannie Moore MD [address] [address], [place], [address] , [facility] [place] 4 14:47:07 Screenin g for malignan t neoplasm of breast Completed 201306/12/2015 RECORDED 03/02/20 14 1:17PM BY PETTY NESS MA, OFFICE VISIT Dannie Moore MD [address] [address], [place], [address] , [facility] [place] 6 10:14:24 Cough 70004567 Completed 201305/15/2014 IMPRESSI ON: SEE IF THIS HELPS. WILL NEEDS FURTHER EVAL IF SYMPTOMS WORSEN/P ERSIST.; RECORDED 03/02/20 14 1:00PM BY PETTY NESS MA, ANNOTATI ON/ADDEN DUM Dannie Moore MD [address] [facility] [address], [place], [address] , [facility] [place] 6 10:14:24 Hypercal cemia 66022263 Completed 201306/12/2015 IMPRESSI ON: SLIGHT ELEVATIO N, MAY BE LAB ERROR OR RELATED TO SUPPLEME NT. WILL REDUCE SUPPLEME NT DOSE AND FOLLOW. IF PERSISTA NT WILL NEED FURTHER EVALUATI ON.; RECORDED 03/02/20 14 1:13PM BY PETTY NESS MA, OFFICE VISIT Dannie Moore MD [address] [facility] [address], [place], [address] , [facility] [place] 6 10:14:24 Major depressi on single episode, in partial remissio n [id number] Completed 201306/01/2024 Dannie Moore MD [address] [facility] [address], [place], [address] , [facility] [place] 4 14:44:19 Migraine 33604900 Active 2013 Kayleen Patrice kinsey, [facility] 1 10:09:05 Non-toxi c multinod ular goiter 12505781 Active 2013 Kayleen kinsey, [facility] 1 10:09:05 [place]weig ht [id number] Completed 201306/26/2016 IMPRESSI ON: POTETNAI L [facility] [place]. HEALTHIE R DIETARY AND EXERCISE HABITS ADVISED. ; RECORDED 03/02/20 14 1:13PM BY PETTY NESS MA, OFFICE VISIT Dannie Moore MD [address] [address], [place], [address] , [facility] [place] 9 13:42:37 Chronic sinusiti s 12467770 Completed 201305/15/2014 RECORDED 03/02/20 14 1:44PM BY DANNIE Maciel MD, ANNOTATI ON/ADDEN DUM Dannie Moore MD [address] [address], [place], [address] , [facility] [place] 6 10:14:24 Non-toxi c uninodul ar goiter 576304954 Completed 201306/26/2016 STORY: GLENN GUILLORY; Dannie Moore MD [address] [address], [place], [address] , [facility] [place] 6 10:14:24 Administ ration of viral vaccine Completed 201306/12/2015 RECORDED 03/02/20 14 1:54PM BY DANNIE Maciel MD, OFFICE VISIT Dannie Moore MD [address] [facility] [address], [place], [address] , [facility] [place] 6 10:14:24 Cough 59167868 Completed 201306/11/2014 IMPRESSI ON: SEE IF THIS HELPS. WILL NEEDS FURTHER EVAL IF SYMPTOMS WORSEN/P ERSIST.; RECORDED 03/02/20 14 1:00PM BY PETTY NESS MA, ANNOTATI ON/ADDEN DUM Dannie Moore MD [address] [facility] [address], [place], [address] , [facility] [place] 6 10:14:24 Chronic sinusiti s 95042659 Completed 201306/11/2014 RECORDED 03/02/20 14 1:44PM BY DANNIE Maciel MD, ANNOTATI ON/ADDEN DUM Dannie Moore MD [address] [facility] [address], [place], [address] , [facility] [place] 6 10:14:24 Adult health examinat ion Completed [...] MD, OFFICE VISIT Dannie Moore MD [address] [facility] [address], [place], [address] , [facility] [place] 6 10:14:24 Gastroes ophageal reflux disease 736227724 Active 2013 STORY: SON kinsey, [facility] 1 10:09:05 Pure hypercho lesterol emia 989236547 Active 2013 Kayleenfern kinsey, [facility] 1 10:09:05 Single major depressi ve episode Completed 201307/01/2017 STORY: ZENOBIA /BOBBY Moore MD [address], [place], [address] , [facility] [place] 7 11:43:42 Mammogra phy abnormal 312714945 Completed 201407/01/2017 Dannie Moore MD [address], [place], [address] , [facility] [place] 7 11:41:54 Osteopen ia 035565884 Active 2015 Kayleen kinsey [facility] 1 10:09:05 Insomnia 153496028 Active 2016 Kayleenanne kinsey, [facility] 1 10:09:05 Impaired fasting glycemia 435389167 Active 2017 Kayleen kinsey, [facility] 1 10:09:05 Overweig ht 418060468 Completed 201707/25/2019 Dannie Moore MD [address], [place], [address] , [facility] [place] 9 13:42:37 Sinus tachycar bud 46807965 Active 2017 Kayleenfern kinsey [facility] 1 10:09:05 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 836446614 Active 2018 Kayleen kinsey [facility] 1 10:09:05 Degenera tion of interver tebral disc 69406097 Active 2018 C5-C7 Kayleen kinsey [facility] 1 10:09:05 Osteopor osis 15065919 Completed 201804/05/2023 Dannie Moore MD [address], [place], [address] , [facility] [place] 3 17:05:27 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 999718026 Active 2018 Kayleen Ibrahim null, [facility] 1 10:09:05 Divertic ular disease 842394204 Active 2018 Kayleen Ibrahim null, [facility] 1 10:09:05 Actinic keratosi s 037943834 Active 2019 Kayleen Ibrahim null, [facility] 1 10:09:05 Prediabe sachin 974733673 Active 2019 Akyleenanne Ibrahim null, [facility] 1 10:09:05 Chronic kidney disease stage 3 363391269 Completed 202005/07/2021 Dannie Moore MD [address], [place], [address] , [facility] [place] 1 21:18:46 Hyperten sive renal disease 18149924 Active 2020 Concepciónsydney Smythvedo null, [facility] 1 09:56:37 Hyperpar athyroid ism 84673364 Active 2020 Dannie Moore MD [address], [place], [address] , [facility] [place] 1 21:06:42 Impingem ent syndrome of right shoulder region 28997746189 9102 Active 2021 Dannie Moore MD [address], [place], [address] , [facility] [place] 2 12:51:37 Chronic paronych ia 711188574 Completed 202206/01/2024 Dannie Moore MD [address] [facility] [address], [place], [address] , [facility] [place] 4 14:47:05 Chronic kidney disease stage 2 271146468 Completed 202209/28/2023 Dannie Moore MD [address] [facility] [address], [place], [address] , [facility] [place] 3 06:57:37 Bursitis of right hip 798766370 Active 2022 Dannie Moore MD [address] [facility] [address], [place], [address] , [facility] [place] 3 14:53:08 Chronic kidney disease stage 3A 416488332 Active 2022 Dannie Moore MD [address] [facility] [address], [place], [address] , [facility] [place] 3 06:57:54 Postoper ative hypothyr oidism 31236686 Active 2023 Dannie Moore MD [address] [facility] [address], [place], [address] , [facility] [place] 4 09:11:14 Hiatal hernia 05011757 Active 2023 Dannie Moore MD [address] [facility] [address], [place], [address] , [facility] [place] 4 14:46:12 Major depressi on in remissio n 70164014 Active 2023 Dannie Moore MD [address] [facility] [address], [place], [address] , [facility] [place] 4 15:08:48 Body mass index 25-29 - overweig ht 205330684 Active 2023 Dannie Moore MD [address] [facility] [address], [place], [address] , [facility] [place] 4 15:18:13 Trochant linda bursitis of right hip 65673036092 9100 Active 2024 Dannie Moore MD [address], [place], [address] , [facility] [place] 5 16:41:49 Pain of right shoulder joint [id number] 627860 Active 2024 Dannie Moore MD [address], [place], [address] , [facility] [place] 5 13:37:30 Problem Notes None recorded. Procedures Surgical History Date Name Laterality Status Provider Name and Address Organization Details Recorded Time 2024 injection of hip joint completed Dannie Moore MD [address], [place], [address], [facility] [place] 5 21:54:25 2024 injection into bursa completed Dannie Moore MD [address], [place], [address], [facility] [place] 5 08:27:08 2024 Cologuard completed Dannie Moore MD [address], [place], [address], [facility] [place] 5 11:42:02 2024 Advanced Care Planning completed Dannie Moore MD [address], [place], [address], [facility] [place] 5 13:27:56 2024 intra-articular injection completed Dannie Moore MD [address], [place], [address], [facility] [place] 5 06:42:54 2024 Most Recent Bone Density completed Cathy Moreno MA [facility] 5 13:13:33 2024 Dxa bone density waldemar vrt fx completed Anirudh Moreno MA [facility] 5 13:14:03 2023 Most Recent Mammogram completed Shanda Mcgrath [facility] 5 07:47:10 2023 Advanced Care Planning completed Dannie Moore MD [address], [place], [address], [facility] [place] 4 14:58:26 2023 total thyroidectomy completed Shanda Mcgrath [facility] 4 08:05:25 2022 Mammogram screening completed Andreina West [facility] 3 16:00:14 2020 biopsy of lesion of thyroid gland completed Dannie Moore MD [address], [place], [address], [facility] [place] 1 06:59:41 2020 biopsy of thyroid completed Dannie Moore MD [address], [place], [address], [facility] [place] 1 06:36:06 2020 Six-Item Cognitive Test completed Petty Ness MA [facility] 1 14:00:21 2019 esophagogastroduodenoscopy completed Dannie Moore MD [address], [place], [address], [facility] [place] 4 14:45:57 2018 Mini-Cog Test completed Petty Ness MA [facility] 9 13:09:37 2018 Date of Last Colonoscopy completed Petty Ness MA [facility] 2 13:09:08 2018 colonoscopy completed Dannie Moore MD [address], [place], [address], [facility] [place] 1 14:40:15 2018 Dxa bone density waldemar vrt fx completed Ritika Ness MA [facility] 9 13:06:13 2017 Eye Surgery completed Dannie Moore MD [address], [place], [address], [facility] [place] 9 13:39:05 2017 Mini-Cog Test completed Chrissy Cazares [facility] 8 10:42:09 2017 Echo transthoracic completed Dannie Moore MD [address], [place], [address], [facility] [place] 8 09:47:42 2016 Fall Risk Assessment completed Sidra frederick MA [facility] 7 11:14:21 2016 Mini-Cog Test completed Sidra frederick MA [facility] 7 11:15:30 2016 Advanced Care Planning completed Dannie Moore MD [address], [place], [address], [facility] [place] 7 11:40:14 2015 Fall Risk Assessment completed Petty Ness MA [facility] 6 09:56:47 2015 Mini-Cog Test completed Petty Ness MA [facility] 6 09:57:35 2015 Advanced Care Planning completed Petty Ness MA [facility] 6 09:49:22 2014 Fall Risk Assessment completed Petty Ness MA [facility] 5 14:12:30 2014 Mini-Cog Test completed Petty Ness MA [facility] 5 14:12:30 2012 Date of Last Pap Smear completed Petty Ness MA [facility] 5 14:00:16 1985 Hysterectomy completed Petty Ness MA [facility] 6 09:54:00 1977 oophorectomy completed Dannie Moore MD [address] [facility] [address] [address], [facility] [place] 9 19:13:18 1958 Appendectomy completed Petty Ness MA [facility] 6 09:54:00 Tonsillectomy completed Petty Ness MA [facility] 5 14:00:16 Arthroscopic Surgery completed Ritika Ness MA [facility] 6 09:54:00 Thyroid Surgery completed Petty Ness MA [facility] 6 09:54:00 Hemorrhoidectomy completed Petty Ness MA [facility] 5 14:00:16 Imaging Results None recorded. Procedure Notes None recorded. Medical Equipment None Reported. Allergies Allergen ID Allergen Name Allergen Category Reaction Reaction Severity Criticality Documentation Date Start Date Code Code System Note Provider Name and Address Organization Details Recorded Time 00042 ampicilli n medicatio n abdominal pain Not available Not available 07/01/2017 733 RxNorm JAIRO Romo [facility] 7 11:11:25 54326 meperidin e medicatio n Not available Not available Not available 03/15/2020 6754 RxNorm Nathalia kinsey [facility] 0 11:25:39 97420 Bactrim medicatio n nausea moderate Not available 10/19/2020 23809 9 RxNorm Dannie Moore MD [address] [facility] [address], [place], [address], [facility] [place] 3 09:00:49 98508 Bactrim medicatio n abdominal pain nausea severe moderate Not available 10/19/2020 71502 9 RxNorm Sidra frederick [place] null, [facility] 0 10:30:06 4130 Demerol medicatio n Not available Not available Not available 05/15/20142013 03524 1 RxNorm Dannie Moore MD [address] [facility] [address], [facility] [place] [address], [facility] [place] 3 09:00:52 Medications Name Sig Start Date [...] 24 hr TAKE 1 TABLET BY MOUTH DAILY active Not Available Not Available No t Available moxifloxa rony 400 mg tablet TAKE 1 TABLET BY MOUTH EVERY DAY FOR 7 DAYS 12/10 completed Not Available Not Available Not Available venlafaxi ne ER 150 mg capsule,e xtended release 24 hr 150 mg by oral route. 03/14 completed Not Available Not Available Not Available acetamino phen 300 mg-codein e 30 mg tablet TAKE 1 TABLET BY MOUTH EVERY 6 HOURS FOR 3 DAYS active Not Available Not Available No t Available ciproflox acin 250 mg tablet Take 1 tablet twice a day by oral route for 3 days. 07/01 completed Not Available Not Available Not Available doxepin 10 mg capsule Take 1 capsule as needed by oral route at bedtime for 90 days. 09/30 completed Not Available Not Available Not Available tramadol 50 mg tablet TAKE 1 TABLET BY MOUTH EVERY 6 HOURS FOR 7 DAYS. active Not Available Not Available No t Available bupropion HCl SR 100 mg tablet,12 hr sustained -release Take 1 tablet twice a day by oral route for 90 days. 02/07 completed Not Available Not Available Not Available butalbita l-acetami nophen-ca ffeine 50 mg-325 mg-40 mg tablet TAKE ONE TABLET BY MOUTH EVERY SIX HOURS NEEDED 2024 active Not Available Not Available Not Avai lable acyclovir 800 mg tablet TAKE 1 TABLET BY MOUTH THREE TIMES A DAY FOR 10 DAYS active Not Available Not Available No t Available levothyro xine 100 mcg tablet TAKE 1 TABLET BY MOUTH 6 DAYS EACH WEEK. TAKE 1/2 TABLET ON DAY 7. active Not Available Not Available No t [...] completed RECORDED 04/24/20 14 11:29AM BY DANNIE Maicel MD, MEDICATI ON AUTO-YOLIS CTIVATIO N; Not Available Not Available Not Available codeine-b utalbital -ASA-caff eine 30 mg-50 mg-325 mg-40 mg capsule EVERY SIX HOURS, NEEDED 11/21 completed RECORDED 11/21/19 14 4:31PM BY DANNIE Maciel MD, ANNOTATI ON/ADDEN DUM; Not Available Not Available Not Available trazodone 100 mg tablet TAKE 1 [...] in 20 mg tablet TAKE 1 TABLET BY MOUTH EVERY DAY IN THE EVENING FOR 90 DAYS active Not Available Not [...] omeprazol e 20 mg capsule,d elayed release TAKE 1 CAPSULE BY MOUTH TWICE A DAY FOR 90 DAYS active Not Available Not [...] N; Not Available Not Available Not Available mupirocin 2 % topical ointment APPLY TOPICALL Y 3 TIMES A DAY FOR 7 DAYS 07/29 completed Not Available Not Available Not Available [...] n 0.3 %-dexamet hasone 0.1 % eye drops,[facility] 12/05 completed Not Available Not Available Not [...] extended release TAKE 1 TABLET BY MOUTH EVERY MORNING active Not Available Not Available No t Available bupropion HCl XL 150 mg 24 hr tablet, extended release 08/28 completed Not Available Not Available Not Available nitrofura ntoin monohydra te/macroc rystals 100 mg capsule Take 1 capsule twice a day by oral route. 07/23 completed Not Available Not Available Not Available calcium 06/05 completed Not Available Not Available Not Available Fish Oil take 1 tab daily po 06/25 completed RECORDED 03/02/20 14 1:14PM BY PETTY NESS MA, OFFICE VISIT; Not Available Not Available Not Available naproxen TWO TIMES DAILY, NEEDED WITH FOORD 11/15 completed RECORDED 11/16/19 14 11:30AM BY DANNIE Maciel MD, MEDICATI ON AUTO-YOLIS CTIVATIO N; Not Available Not Available Not Available Vitamin D 06/05 completed Not Available Not Available Not Available Vitamin D3 1,000 units 1 daily active Not Available Not Available No t Available multivita min Take 1 tablet po [...] active Not Available Not Available Not Available Citracal- D3 Maximum Plus 1 daily active Not Available Not Available Not Available Fluzone High-Dose Quad (PF) 240 mcg/0.7 mL IM syringe 10/19 completed Not Available Not Available Not Available Vitals Date Recorded Body height Body mass index (BMI) Body weight Heart rate Oxygen saturation Oxygen saturation in Arterial blood by Pulse oximetry Body temperature Systolic And Diastolic Provider Name and Address Organization Details Last Updated DateTime 5 153.04 cm 29.6 kg/m2 58910.6 3 g 95 /min 97 % 97 % 97.9 [degF] 109/65 mm[Hg] Rebeca Lambert MA [facility] 5 13:18:06 Date Recorded Body height Body mass index (BMI) Body weight Systolic And Diastolic Provider Name and Address Organization Details Last Updated DateTime 01/16/2025 153.04 cm 29.4 kg/m2 42739.04 g 156/82 mm[Hg] Anastacia Husain MA [facility] 01/16/2025 14:41:29 Date Recorded Body height Body mass index (BMI) Body weight Heart rate Oxygen saturation Oxygen saturation in Arterial blood by Pulse oximetry Body temperature Systolic And Diastolic Provider Name and Address Organization Details Last Updated DateTime 4 153.04 cm 29.1 kg/m2 02815.8 6 g 86 /min 97 % 97 % 97.8 [degF] 145/78 mm[Hg] Anastacia Husain MA [facility] 4 14:07:00 Date Recorded Body height Body mass index (BMI) Body weight Heart rate Oxygen saturation Oxygen saturation in Arterial blood by Pulse oximetry Body temperature Systolic And Diastolic Systolic And Diastolic Provider Name and Address Organization Details Last Updated DateTime 5 153.04 cm 29.5 kg/m2 83090.7 4 g 83 /min 96 % 96 % 97.3 [degF] 146/82 mm[Hg] 148/78 mm[Hg] Janet Moreno [facility] 5 13:24:24 Date Recorded Body height Oxygen saturation Oxygen saturation in Arterial blood by Pulse oximetry Heart rate Body temperature Systolic And Diastolic Provider Name and Address Organization Details Last Updated DateTime 4 153.04 cm 98 % 98 % 97 /min 97.6 [degF] 125/82 mm[Hg] Rona Delatorre MA [facility] 4 13:59:50 Social History Question Answer Notes LastModified by Organizat ion Details LastModified Time Tobacco Smoking Status Former Smoker Not Available [employer] 09/03/2020 03:36:44 Do You Have An Advance Directive? Yes Taylor (daughte r) And Yemi (son) Information not available 10/19/2020 Is Blood Transfusion Acceptable In An Emergency? Yes [id number] Information not available 09/03/2020 What Is Your Level Of Caffeine Consumption? Occasional Information not available 06/05/2025 How Much Tobacco Do You Chew? None [id number] Information not available 09/03/2020 In The 14 Days Before Symptom Onset, Have You Had Close Contact With A Laboratory-confir med COVID-19 While That Case Was Ill? No [id number] Information not available 09/03/2020 In The 14 Days Before Symptom Onset, Have You Had Close Contact With A Person Who Is Under Investigation For COVID-19 While That Person Was Ill? No [id number] Information not available 09/03/2020 Have You Been To An Area Known To Be High Risk For COVID-19? No [id number] Information not available 09/03/2020 What Type Of Diet Are You Following? REGULAR [id number] Information not available 09/03/2020 Which Illicit Or Recreational Drugs Have You Used? None [id number] Information not available 09/03/2020 When Did You Quit Smoking? 18+yearssinmarisel [email or web address] Information not available 10/19/2020 Live Alone Or [...] 10/19/2020 Have You Recently Traveled To A COVID-19 High Risk Area Or Gathering In The Last 10 Days? No Information not available 02/24/2021 What Was The Date Of Your Most Recent Tobacco Screening? 06/05/2025 [email or web address] Information not available 06/05/2025 How Many Children Do You Have? 2 [id number] Information not available 09/03/2020 What Is Your Current Pack Years? 10packyears Information not available 02/24/2021 Seat Belts Used Routinely Yes Information not available 06/12/2015 Are You Sexually Active? No [id number] Information not available 09/03/2020 Smoke Alarm In Home Yes Information not available 06/12/2015 At What Age Did You Start Smoking Tobacco? 22 Information not available 02/24/2021 Are You Passively Exposed To Smoke? No Information no t available 06/12/2015 How Much Tobacco Do You Smoke? 1 PPW Information not available 02/24/2021 Do You Use Sunscreen Routinely? Yes [id number] Information not available 09/03/2020 How Many Years Have You Smoked Tobacco? 8 [id number] Information not available 09/03/2020 Sex: Unknown Functional Status Question Answer Note LastModified by Organizat ion Details LastModified Time Do you use any illicit or recreational drugs? No Information not available 03/02/2022 Do you or have you ever used any other forms of tobacco or nicotine? No Information not available 03/02/2022 What is your level of alcohol consumption? rarly Information not available 06/05/2025 Do you or have you ever used smokeless tobacco? Never used smokeless tobacco [id number] Information not available 09/03/2020 Are you currently employed? No retired bsolijo annos Information not available 10/19/2020 Are you able to walk independently without assistance or assistive devices? YESWOREST Information not available 03/02/2022 Are you able to care for yourself independently? 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 Never used electronic cigarettes [id number] Information not available 09/03/2020 What is your exercise level? Occasional walking 3x week [id number] Information not available 09/03/2020 Mental Status None recorded. Family History Relationship Description Onset Age of this Age Resolved Age Notes LastModified by Organization Details LastModified Time Father Heart disease 66 [email or web address] Not available 06/26 10:18:29 Father Hypercholest erolemia 66 awychowski Not available 06/26 10:18:29 Mother Malignant neoplasm of colon awychowski Not available 06/26 10:18:29 Mother Disorder of thyroid gland awychowski Not available 06/26 10:18:29 Mother Harmful pattern of use of alcohol 67 awychowski Not available 06/26 10:18:29 Mother Arthritis awychowski Not availa ble 06/26/2016 10:18:29 Paternal Grandfather Cerebrovascu lar accident awychowski Not available 10:18:29 Paternal Aunt Malignant neoplasm of breast 55 64 abolcun Not available 2015 09:53:17 Sister Malignant neoplasm of breast 65 awychowski Not available 06/26 10:18:29 Sister Disorder of thyroid gland 60 awychowski Not available 06/26 10:18:29 Paternal Grandmother Heart disease 83 awychowski Not available 06/26 10:18:29 Son Well adult awychowski Not avail able 06/26/2016 10:18:29 Daughter Well adult awychowski Not sadia ilable 06/26/2016 10:18:29 Medical History Condition Response Coronary Artery Disease N Gout N Other N Blood Diseases N Kidney Stones N Hyperthyroidism N Breast Cancer N mrsa exposure N Lung Disease N COPD N Depression Y Hypothyroidism N Defects or Inherited Disease N Developmental or Behavioral Disorders N Breast Problem N Anesthesia Complications N [...] Problems N Developmental Delay N Acne N Eating Disorder Y Skin Problems N Anemia N Constipation N Bladder Problems Y Mental Illness N Diabetes N Ovarian Cancer N Bedwetting N Blood Transfusions N Heart Problems/Murmur N Seizures/Epilepsy N Tuberculosis N AIDS/HIV N Congestive Heart Failure (CHF) N Eczema N Abuse/Domestic Violence N Diverticulitis N Asthma N Allergies Y Reflux/GERD N Hepatitis N Heart Disease N Pulmonary Embolism N Hypertension Y Chicken Pox Y Autism Spectrum Disorder (ASD) N Osteoporosis N Gynecological History Statement/Question Response Date of Last Pap Smear 04/19/2013 Date of Last Colonoscopy 05/19/2019 Most Recent Mammogram 10/31/2024 Most Recent Bone Density 03/06/2025 Obstetrics History GPAL:G 0 P 0 0 0 0 Immunizations Vaccine Type Date Status Note Provider Name and Address Organization Details Recorded Time Influenza, split virus, trivalent, preservative 015 completed Kayleenfern kinsey [facility] 03/14/2021 10:09:11 Influenza, split virus, quadrivalent, preservative 020 completed Kayleen kinsey [facility] 03/14/2021 10:09:11 Influenza, split virus, trivalent, preservative 013 completed JAIRO Monson [facility] 03/02/2022 13:04:01 COVID-19, mRNA, LNP-S, PF, 30 mcg/0.3 mL dose 021 [facility] 13:04:01 COVID-19, mRNA, LNP-S, PF, 30 mcg/0.3 mL dose 021 [facility] 13:04:01 Influenza, split virus, trivalent, preservative 014 [facility] 13:04:01 COVID-19, mRNA, LNP-S, PF, 30 mcg/0.3 mL dose 021 [facility] 13:04:01 Influenza, high-dose, trivalent, PF 018 completed JAIRO Monson, [facility] 08/14/2022 12:53:06 Influenza, high-dose, trivalent, PF 016 completed JAIRO Monson, [facility] 08/14/2022 12:53:06 Influenza, high-dose, quadrivalent, PF 021 completed Petty Ness MA null, [facility] 08/14/2022 12:53:06 Influenza, high-dose, trivalent, PF 019 completed JAIRO Monson, [facility] 08/14/2022 12:53:06 Influenza, high-dose, trivalent, PF 017 completed JAIRO Monson, [facility] 08/14/2022 12:53:06 COVID-19, mRNA, LNP-S, PF, 30 mcg/0.3 mL dose 021 completed JAIRO Monson, [facility] 08/14/2022 12:53:06 Influenza, adjuvanted, quadrivalent, PF 022 completed JAIRO Monson, [facility] 08/14/2022 12:53:07 Pneumococcal conjugate PCV 13 015 completed JAIRO Monson, [facility] 08/14/2022 12:53:07 COVID-19, mRNA, LNP-S, PF, 30 mcg/0.3 mL dose 021 completed JAIRO Monson, [facility] 08/14/2022 12:53:07 COVID-19, mRNA, LNP-S, bivalent, PF, 30 mcg/0.3 mL dose 023 completed JAIRO Carolina, [facility] 03/18/2023 15:53:15 Influenza, adjuvanted, quadrivalent, PF 023 completed JAIRO Kaplan, [facility] 09/30/2023 10:51:39 COVID-19, mRNA, LNP-S, PF, dinora-sucrose, 30 mcg/0.3 mL 023 completed JAIRO Kaplan, [facility] 09/30/2023 10:51:39 COVID-19, mRNA, LNP-S, PF, dinora-sucrose, 30 mcg/0.3 mL 024 completed JAIRO Hamlin, [facility] 08/30/2024 13:50:30 Influenza, high-dose, trivalent, PF 024 completed JAIRO Hamlin, [facility] 08/30/2024 13:50:30 zoster live 017 cancelled patient objection Not Available [facility] 11/18/2019 02:21:33 Influenza, split virus, trivalent, preservative 012 completed Kayleen Ibrahim null, [facility] 03/14/2021 10:09:11 pneumococcal polysaccharide PPV23 012 completed Kayleen Ibrahim null, [facility] 03/14/2021 10:09:11 Tdap 013 completed Kayleen Ibrahim null, [facility] 03/14/2021 10:09:11 zoster recombinant 019 cancelled patient objection Not Available [facility] 11/18/2019 02:22:20 Td (adult), 2 Lf tetanus toxoid, preservative free, adsorbed 023 completed Dannie Moore MD [address] [address], [place], [address], [facility] 04/05/2023 17:05:41 Past Encounters Encounter ID Performer Location Encounter Start Date Encounter Closed Date Diagnosis/Indication Diagnosis SNOMED-CT Code Diagnosis ICD10 Code Diagnosis IMO Codes Diagnosis Note [id number] [facility] [address] [place] [address] [address] [place] [address] 06/29/2012 00:00:00 [id number] auto[facility] erce [address] [place] [address] [place], [place] [address] 07/26/2012 00:00:00 [id number] [facility] erce [address] [facility] [address] [place], [place] [address] 11/16/2012 00:00:00 [id number] [facility] erce [address] [place] [address] [place], [place] [address] 03/06/2013 00:00:00 [id number] auto[facility]Comm erce [address] [facility] [address] [place], [place] [address] 08/07/2013 00:00:00 [id number] auto[facility] erce [address] [facility] [address] [place], [place] [address] 10/16/2013 00:00:00 [id number] auto[facility]Comm erce [address] [facility] [address] [place], [place] [address] 12/11/2013 00:00:00 [id number] auto[facility]Comm erce [address] [facility] [address] [place], [place] [address] 03/02/2014 00:00:00 [id number] AMRTELL Raymond Main Office [address] [facility] [address] [place], [place] [address] 07/31/2014 10:18:36 07/31/2014 10:57:32 Acute pharyngitis [id number] Laryngitis [id number] Dannie Moore MD Main Office [address] [place], [place] [address] 06/12/2015 13:48:45 06/12/2015 15:15:33 Adult health examination 110199519 Will update immunizati on status and screen based on risk factors. Flu advised in the Fall. Breast, cervical and colon cancer screening utd. Regular dental and ophtho care advised as well as seatbelt and sunscreen use. Distracted driving discussed. Pt currently demonstrat es low risk for falls and no significan t cognitive decline. Advance directives in place. Body mass index 25-29 - overweight 691955611 Pure hypercholesterolemia 108681449 Based on 10 yr CV risk >7.5% will start moderate dose statin. Non-toxic multinodular goiter 03677399 Osteopenia 864563617 Regul ar weight bearing exercise and adequate dietary Ca/VitD intake advised. Administra tion of pneumococcal vaccine 77982319 Major depr ession single episode, in partial remission 99283662 Stable, and followed/m anaged by psych. [id number] Dannie Moore MD Main Office [address] [place] [address] 06/19/2015 13:26:55 06/19/2015 14:09:24 Acute pharyngitis 039580438 Rapid strep negative and overall symptom score makes strep unlikely. Call if persistent /worse. Cough 78159540 Suspect that this is an allergy mediated phenomenon given cyclical recurrent nature. Will treat symptoms acutely with short course of steroid and hopefully sustain symptom control with antihistam ine. Advised to call inb/worse. [id number] Dannie Moore MD Main Office [address] [place] [address] 06/27/2015 15:00:10 06/27/2015 16:15:29 Recurrent sinusitis 863183720 Still suspect an allergic foundation of inflammati on but now with secondary bacterial process. Will try to address both issues. Cough 49771419 Suspect that this is an allergy mediated phenomenon given cyclical recurrent nature. Will treat symptoms acutely with short course of steroid and hopefully sustain symptom control with antihistam ine. Refer to allergy for further eval if persistent /worse. [id number] Patricia Og PA-C Main Office [address] [place] [address] 01/24/2016 13:36:29 01/24/2016 14:35:11 Low back pain 819874061 M54.5 H/o lumbar disc degenerati on with slow gradual recurrence of symptoms . Will start more regular NSAIDs and referral to PT for several weeks. If no sign. imrovement s , will repeat MRI and refer to pain management . [id number] Dannie Moore MD Main Office [address] [place] [address] 02/27/2016 15:32:07 02/27/2016 16:39:01 Tachycardia 1326886 R00.0 Currently well controlled . Pt advised ok to take and extra dose on days that BP/HR might be more elevated. Also advised to call if occurring frequently or of long duration or associated with dizziness/ CP/SOB. Would need holter at that time. Pure hypercholesterolemia 634707579 E78.0 tolerating statin, LDL at goal. Continue current dosing. [id number] Dannie Moore MD Main Office [address] [facility] [address] [place] [address] 06/26/2016 09:28:34 06/26/2016 10:56:40 Adult health examination 470570080 Z00.00 Immunizati on status updated will screen based on risk factors. Breast, cervical and colon cancer screening utd. Regular dental and ophtho care advised as well as seat belt and sunscreen use. Distracted driving discussed. Pt currently demonstrat es low risk for falls and no significan t cognitive decline. Advance directives in place. Advance di rective discussed with patient 453940892 Z71.89 MOLST for provided Single nelia or depressive episode 356058779 F32.9 Followed closely and meds managed by psych. Pure hypercholesterolemia 526058834 E78.0 tolerating statin, LDL at goal. Continue current dosing. Body mass index 25-29 - overweight 820748193 Z68.29 Osteopenia 010249271 M85 .80 Regular weight bearing exercise and adequate dietary Ca/VitD intake advised. Tachycardia 6092998 R00. 0 Currently well controlled . Pt advised ok to take and extra dose on days that BP/HR might be more elevated. Also advised to call if occurring frequently or of long duration or associated with dizziness/ CP/SOB. Would need further eval at that time. Influenza vaccine needed 1999870353 106 Z23 Inflammati on of sacroiliac joint 20063142 M46.1 [id number] Alfredito Buckley MD Main Office [address] [facility] [address] [place] [address] 07/01/2016 10:24:49 07/01/2016 11:32:56 Dysuria 36751382 R30.0 [id number] Dannie Moore MD Main Office [address] [facility] [address] [place] [address] 07/23/2016 15:46:09 07/23/2016 16:48:25 Left flank pain 209990354 R10.9 Etiology unclear. Thus far only abnormalit y found are possible bladder wall fullness with subtle UA abnormalit ies. Left lower quadrant pain 913175479 R10.32 See if neurogenic pain meds help, and rule out pelvic/hip pain component. Look for evidence of inflammato ry process. [id number] Dannie Moore MD Main Office [address] [facility] [address] [place] [address] 07/01/2017 10:56:22 07/01/2017 12:24:39 Adult health examination 172300931 Z00.00 Immunizati on status updated will screen based on risk factors. Breast, cervical and colon cancer screening utd. Regular dental and ophtho care advised as well as seat belt and sunscreen use. Distracted driving discussed. Pt currently demonstrat es low risk for falls and no significan t cognitive decline. Advance directives in place. Varicella vaccination 68 162135 Z23 Screening for malignant neoplasm of breast 764803705 Z12.39 Influenza vaccine needed 2120974959 106 Z23 Body mass index 25-29 - overweight 740967821 Z68.29 Advance di rective discussed with patient 509896694 Z71.89 Patient is planning on having a meeting with her son and daughter to reaffirm end of life care goal/wishe s. Pure hypercholesterolemia 651341498 E78.00 Tachycardia 1000275 R00. 0 Currently well controlled . Pt advised ok to take and extra dose on days that BP/HR might be more elevated. Also advised to call if occurring frequently or of long duration or associated with dizziness/ CP/SOB. Would need further eval at that time. Major depr ession single episode, in partial remission 22317853 F32.4 Chronic but overall stable, and followed/m anaged by psych. [id number] Dannie Moore MD Main Office [address] [facility] [address] [place] [address] 01/19/2018 12:33:59 01/19/2018 13:19:50 Tachycardia 0780105 R00.0 Fair control. Suspect deconditio brandon is and issue. Had normal thyroid labs this past Fall. Advised to call if occurring frequently or of long duration or associated with dizziness/ CP/SOB. Would titrate BB dose at that time. Gastroesop hageal reflux disease 852237994 K21.9 Symptoms well controlled with PRN PPI use and no warning signs. Continue current regimen. Pure hypercholesterolemia 090621636 E78.00 LDL at goal. Continue current regimen. Osteopenia 694126217 M85 .80 Regular weight bearing exercise and adequate dietary Ca/VitD intake advised. Due for BND in June [id number] Dannie Moore MD Main Office [address] [facility] 207 [facility] [place] [address] 07/07/2018 10:18:54 07/07/2018 11:55:47 Adult health examination 279065340 Z00.00 Immunizati on status updated will screen based on risk factors. Breast, cervical and colon cancer screening utd. Regular dental and ophtho care advised as well as seat belt and sunscreen use. Distracted driving discussed. Pt currently demonstrat es low risk for falls and no significan t cognitive decline. Advance directives in place. Body mass index 25-29 - overweight 000466118 Z68.29 Screening for malignant neoplasm of breast 425516524 Z12.39 Pure hypercholesterolemia 226395603 E78.00 LDL at goal. Continue current regimen. Tachycardia 5329185 R00. 0 Currently fairly well controlled . BB dose titration discussed but pt would prefer to address with cards. Will track down recent echo and holter reports. Major depr ession single episode, in partial remission 85299401 F32.4 Chronic but overall stable, and followed/m anaged by psych. Impaired f asting glycemia 358274552 R73.01 Non-toxic multinodular goiter 26807934 E04.2 Pt would like to follow up with a different andocrinol ogist. Osteopenia 933924676 M85 .80 Regular weight bearing exercise and adequate dietary Ca/VitD intake advised. Due for BND in June Screening for malignant neoplasm of colon 187104785 Z12.11 Varicella vaccination 68 714974 Z23 Influenza vaccine needed 1876455866 106 Z23 Overweight 475815635 E66 .3 [id number] Mukesh Robertson MD Main Office [address] [facility] 207 [facility] [place] [address] 08/12/2018 14:50:32 08/12/2018 15:53:25 Hordeolum 108405953 H00.[address] Reese office and they will contact the patient. Continue with warm compresses . [id number] Dannie Moore MD Main Office [address] [facility] [address] [place] [address] 02/07/2019 12:44:08 02/07/2019 13:34:45 Osteoporosis 59171858 M81.0 Treatment options discussed extensivel y including potential benefits and side effects of bisphospho shauna therapy. >25 min spent face to face counseling . Pt will consider starting rx and let me know if she does as well as if she has any side effects/in tolerance. [id number] Dannie Moore MD Main Office [address] [address] [place] [address] 04/18/2019 12:42:27 04/18/2019 13:19:04 Pain in finger 53037774 M79.644 Suspect crystaline arthropath y but will screen for inflammato ry/reactiv e arthropath y. Image to rule out significan t bone disease. Depending on lab results and response to steroid, may need referral and/or taper. Pain of mu ltiple joints 33176485 M25.50 [id number] Dannie Moore MD Main Office [address] [address] [place] [address] 07/25/2019 12:51:17 07/25/2019 14:03:14 Adult health examination 666049203 Z00.00 Immunizati on status updated will screen based on risk factors. Breast, cervical and colon cancer screening utd. Regular dental and ophtho care advised as well as seat belt and sunscreen use. Distracted driving discussed. Pt currently demonstrat es low risk for falls and no significan t cognitive decline. Advance directives in place. Essential hypertension 06151300 I10 Well controlled , continue current regimen. Hyperlipidemia 01534607 E78.5 LDL at goal on low dose statin. Influenza vaccine needed 3138113174 106 Z23 Varicella vaccination 68 472703 Z23 Screening for malignant neoplasm of breast 355704505 Z12.39 Major depr ession single episode, in partial remission 37705173 F32.4 Chronic/st able, and followed/m anaged by psych. Obesity 211937942 E66.9 Z68.30 [id number] Dannie Moore MD [address] [address] [place] [address] 03/14/2020 07:43:52 03/14/2020 14:06:43 Cough 79729172 R05 Suspect that this is an allergy mediated phenomenon given cyclical recurrent nature. Will treat with antihistam ine. Refer to allergy for further eval if persistent /worse. Gastroesop hageal reflux disease 666120453 K21.9 See if H2B prn is effective. Monitor while allergy symptoms calm down. Feeling of lump in throat 770883797 F45.8 See if allergy and reflux are the culprits. [id number] Alfredito Buckley MD [facility] [address] [place] [address] [place] [address] 10/19/2020 10:26:24 10/21/2020 06:54:24 Essential hypertension 96396988 I10 Vertigo 621439345 R42 [id number] Beata salas MD Main Office [address] [place] [address] [place] [address] 10/30/2020 14:35:47 11/04/2020 13:22:25 Essential hypertension 66425643 I10 Will try a different generic at pt request, rx sent in. If vertigo is not better then I would recommend vestibular rehab. Pt to call if any acute change. BP has been running ok at home per pt. [id number] Dannie Moore MD Main Office [address] [place] [address] [place] [address] 02/24/2021 13:22:59 02/24/2021 15:01:40 Adult health examination 524605383 Z00.00 Immunizati on status updated will screen based on risk factors. Breast, cervical and colon cancer screening utd. Regular dental and ophtho care advised as well as seat belt and sunscreen use. Distracted driving discussed. Pt currently demonstrat es low risk for falls and no significan t cognitive decline. Advance directives in place. Anxiety state 539012750 F41.1 Depressive disorder 3548 9007 F32.9 Stable. Followed/m anaged by psych. Essential hypertension 96262387 I10 Well controlled , continue current regimen. Screening for malignant neoplasm of breast 350626528 Z12.39 Varicella vaccination 68 342718 Z23 Hepatitis C screening 41 1251372 Z11.59 Pure hypercholesterolemia 059771661 E78.01 LDL at goal. Continue current regimen. Major depr ession single episode, in partial remission 96454876 F32.4 Chronic/st able, and followed/m anaged by psych. Osteoporosis 04287751 M8 1.0 Due for BDN channing. Has appt with endo in April Body mass index 25-29 - overweight 610582850 E66.3 Z68.29 Positional vertigo 57002 4002 H81.13 Persistent issue with CVD risk factors. Will image to rule out old CVA/Mass Albuminuria 897776681 R8 0.9 Need to confirm. Prediabetes 694218561 R7 3.03 Due for reassessme nt. [id number] Dannie Moore MD Main Office [address] [facility] 207 [facility] [address] 08/28/2021 12:38:27 08/28/2021 13:39:15 Essential hypertension 02689693 I10 Well controlled , continue current regimen. Influenza vaccine needed 4838422573 106 Z23 Osteoporosis 72009594 M8 1.0 Just crossing the threshold in 1 site. Pt does not want bisphospho shauna Migraine 10929616 G43.90 9 Fair control with current abortive medication regimen. Pure hypercholesterolemia 315381455 E78.01 LDL at goal. Continue current regimen. Chronic ki dney disease stage 3A 178922579 N18.31 Impaired f asting glycemia 269017285 R73.01 Gastroesop hageal reflux disease 358074372 K21.9 See if H2B prn is effective. Monitor while allergy symptoms calm down. [id number] Dannie Moore MD Main Office [address] [facility] 207 [facility] [address] 03/02/2022 12:59:01 03/02/2022 14:11:23 Adult health examination 862233080 Z00.00 Immunizati on status updated will screen based on risk factors. Breast, cervical and colon cancer screening utd. Regular dental and ophtho care advised as well as seat belt and sunscreen use. Distracted driving discussed. Pt currently demonstrat es low risk for falls and no significan t cognitive decline. Advance directives in place. Anxiety state 683434691 F41.1 Chronic ki dney disease stage 3A 876920622 N18.31 Hypertensi ve renal disease 44626795 I12.9 Well controlled continue current regimen. Prediabetes 651813636 R7 3.03 Due for reassessme nt. Hyperparathyroidism 6699 9008 E21.3 Will reassess and if persistent and no secondary causes identified will ask endo for help. Screening for malignant neoplasm of breast 090229080 Z12.39 Osteoporosis 00944577 M8 1.0 Just crossing the threshold in 1 site. Pt does not want bisphospho shauna, follows with Endocrine Body mass index 25-29 - overweight 276357535 E66.3 Z68.29 Major depr ession single episode, in partial remission 48541659 F32.4 Chronic/st able, and followed/m anaged by psych. [id number] Dannie Moore MD [facility] [address] [facility] [address] [facility] [place] [address] 08/14/2022 09:32:43 08/14/2022 13:48:48 Cough 25592670 R05.9 Suspect that this is a viral vs allergy mediated phenomenon . Will treat symptomati aurora in this acute setting. Salt water gargling and nasal saline advised as well at to call if not slowly improving or if second sickening occurs. Will need a more formal assessment and possibly imaging if that's the case. 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 9 recommend probiotics while on abx [id number] Dannie Moore MD Main Office [address] [facility] [address] [place] [address] 08/26/2022 10:54:11 08/26/2022 11:54:59 Hypertensive renal disease 92964641 I12.9 stable, cont meds as dir Reactive a irway disease 2528339697 06 J45.909 better but not gone - cont montelukas t as dir, prn proair -- see below, will check cxr and pft's for further eval (? asthma) Chronic ki dney disease stage 3A 955751184 N18.31 Cough 96793818 R05.9 and chest tightness x > 2 wks --- this happens to her annually -- suspect RAD also rec mucinex pt requested refill [id number] Dannie Moore MD Main Office [address] [facility] [address] [address] 10/22/2022 12:56:50 10/22/2022 13:49:51 Hypertensive renal disease 26092870 I12.9 Well controlled continue current regimen. Dizziness 458344556 R42 Stable, had MRI in 2020 and seen ENT in the past. Gastroesop hageal reflux disease 303559745 K21.9 Well controlled without warning signs on PPI. Prediabetes 725943744 R7 3.03 Due for reassessme nt. Chronic ki dney disease stage 3A 064655795 N18.31 Stable with non reactive urine and good BP control on BB. Will continue current regimen and monitor for now. Pure hypercholesterolemia 248266447 E78.01 LDL at goal. Continue current regimen. Hyperparathyroidism 6699 9008 E21.3 Will reassess in context of CKD. [id number] Mukesh Robertson MD Telehealt [address] [facility] [address] [place] [address] 03/18/2023 15:26:07 03/19/2023 16:56:42 Acute sinusitis 09757178 J01.90 She will continue to use OTC meds for symptomati c relief. [id number] CRISSY BETANCOURT MD Main Office [address] [address] [place] [address] 03/20/2023 10:41:43 03/20/2023 12:07:41 Red eye 951869017 H57.89 SYMPTOMS:w hich eye(s)? rightredne ss? yesdischar ge? nocrusting or matting on waking? noexposure to someone with conjunctiv itis? no POSSIBLE CONTRAINDI CATIONS TO TELEPHONE TREATMENT: eye pain? yesblurry vision? norecent treatment (within 1 month)?tra janessa? nolupus or rheumatoid arthritis? PROVIDER ACTION Reviewed nursing notes?Pantera mmended action Antibiotic treatment Pt was provided with erythromyc in ointment to be applied to the right eye [id number] Dnanie Moore MD Main Office [address] [address] [place] [address] 04/05/2023 12:50:16 04/05/2023 14:06:57 Adult health examination 771227628 Z00.00 Immunizati on status updated will screen based on risk factors. Shingrix advised via local pharmacy. Breast, cervical and colon cancer screening utd. Regular dental and ophtho care advised as well as seat belt and sunscreen use. Distracted driving discussed. Pt currently demonstrat es low risk for falls and no significan t cognitive decline. Advance directives in place. Hypertensi ve renal disease 03352501 I12.9 Well controlled continue current regimen. Prediabetes 574187254 R7 3.03 Has been stable, will monitor. Body mass index 25-29 - overweight 060526361 E66.3 Z68.29 Major depr ession single episode, in partial remission 10833014 F32.4 Chronic/st able, and followed/m anaged by psych. Anxiety state 728258596 F41.1 Screening for malignant neoplasm of breast 802998290 Z12.39 Requires a tetanus booster 499477032 Z23 Chronic ki dney disease stage 3A 689844124 N18.31 Stable with non reactive urine and good BP control on BB. Will continue current regimen and monitor for now. [id number] Dannie Moore MD Main Office [address] [address] [place] [address] 09/30/2023 10:47:43 09/30/2023 11:41:27 Hypertensive renal disease 19647416 I12.9 Well controlled continue current regimen. Prediabetes 052632086 R7 3.03 Has been stable, will monitor. Pure hypercholesterolemia 255463574 E78.01 LDL at goal. Continue current regimen. Reassess before next appt. Chronic ki dney disease stage 3A 648149568 N18.31 Stable with non reactive urine and good BP control on BB. Will continue current regimen and monitor for now. [id number] Dannie Moore MD Main Office [address] [address] [place] [address] 11/13/2023 10:02:32 11/13/2023 10:56:55 Abdominal discomfort 83281716 R10.9 Right lowe r quadrant pain 082127512 R10.31 Sounds abdominal and suspcious for diverticul itis but further evaluation to rule out urologic or musculoske letal etiology needs to be done. Will empiricall y cover with moxifloxac in and see what labs and xray show. Further testing will be needed if pain persists. Diverticul ar disease of colon 387686938 K57.30 [id number] Mukesh Robertson MD Main Office [address] [address] [place] [address] 12/21/2023 11:19:56 12/21/2023 12:05:36 Perforation of tympanic membrane 61343936 H72.92 Healing. No further treatment needed. [id number] Dannie Moore MD Main Office [address] [address] [place] [address] 06/01/2024 13:44:10 06/01/2024 15:15:24 Adult health examination 997020097 Z00.00 Immunizati on status updated will screen based on risk factors. Shingrix advised via local pharmacy. Breast, cervical and colon cancer screening utd. Regular dental and ophtho care advised as well as seat belt and sunscreen use. Distracted driving discussed. Pt currently demonstrat es low risk for falls and no significan t cognitive decline. Advance directives in place. Varicella vaccination 68 915668 Z23 Administra tion of viral vaccine 44286939 Z29.11 Administra tion of pneumococcal vaccine 40705371 Z23 Body mass index 25-29 - overweight 766478704 E66.3 Z68.29 Chronic ki dney disease stage 3A 462279208 N18.31 Stable with non reactive urine and good BP control on BB. Will continue current regimen and monitor for now. 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 Prediabetes 883558660 R7 3.03 Has been stable, will monitor. Pure hypercholesterolemia 812081798 E78.01 LDL at goal. Continue current regimen. Reassess before next appt. Osteopenia 778792045 M85 .80 Regular weight bearing exercise and adequate dietary Ca/VitD intake advised. Due for BND in 2024. Advance di rective discussed with patient 800376590 Z71.89 Patient is planning on having a meeting with her son and daughter to reaffirm end of life care goal/wishe s. 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 eye. Recom to see ophthalmol ogist in f/u. [id number] Dannie Moore MD Main Office [address] [place] [address] 12/05/2024 12:54:18 12/05/2024 13:59:04 Hypertensive renal disease 29665488 I12.9 Well controlled continue current regimen. Osteopenia 012630975 M85 .80 Regular weight bearing exercise and adequate dietary Ca/VitD intake advised, appropriat e supplement ation discussed. Due for BND in 2024. Prediabetes 476706375 R7 3.03 Has been stable, will monitor. Pure hypercholesterolemia 317624752 E78.01 LDL at goal. Continue current regimen. Reassess before next appt. Gastroesop hageal reflux disease 911244098 K21.9 Well controlled without warning signs on PPI. Working to try and schedule EGD as well as colonoscop y. [id number] Mukesh Robertson MD Main Office [address] [facility] [address] [place] [address] 01/16/2025 14:33:21 01/16/2025 15:17:13 Nasal congestion 68774145 R09.81 Influenza caused by Influenza A virus 948449463 J09.X2 She will treat her symptoms; too late to start tamiflu. Cough 64284120 R05.9 [id number] Dannie Moore MD Main Office [address] [facility] [address] [place] [address] 06/05/2025 12:55:59 06/05/2025 14:05:11 Adult health examination 389210445 Z00.00 RSV, Shingrix advised via local pharmacy along with flu/COVID. Breast, and cervical cancer screening utd. WIll utilize stool testing for colon cancer screening. Regular dental and ophtho care advised as well as seat belt and sunscreen use. Distracted driving discussed. Pt currently demonstrat es low risk for falls and no significan t cognitive decline. Advance directives in place. Screening for malignant neoplasm of breast 812299267 Z12.39 Body mass index 25-29 - overweight 617196498 E66.3 Z68.29 Chronic ki dney disease stage 3A 478876954 N18.31 Stable with non reactive urine and good BP control on BB. Will continue current regimen and monitor for now. 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 Zaman. Postoperat ericka hypothyroidism 58036886 E89.0 Doing well, following with endo who is titrating dose. Prediabetes 543505109 R7 3.03 Has been stable, will monitor. Pure hypercholesterolemia 636857760 E78.01 LDL at goal last month. . Continue current regimen. Osteopenia 536534081 M85 .80 Regular weight bearing exercise and adequate dietary Ca/VitD intake advised. Due for BND in 2024. Advance di rective discussed with patient 105662351 Z71.89 POLST form reviewed, completed, and scanned into chart. Pain of ri ght shoulder joint 8488808657 6654279 M25.511 907442 c/w bursitis vs biceps tendinopat hy. Screening for malignant neoplasm of colon 251650851 Z12.11 Z12.12 Health Concerns Section Related Observation LastModified by Organization Detai ls LastModified Time None Recorded Concern Status LastModified by Organization Details LastModified Time None Recorded Advance Directives Directive Y: Taylor (daughter) and Yemi (son) Payers Insurance Date Sequence Insurance Name Policy Number Policy Nieto Covered Member ID Nieto Member ID Guarantor Name 12/22/2024 1 [place] [id number] Amy Torrez Kittler [id number] Amy Torrez Kittler 06/05/2025 1 [place] [employer]™ Medical SERVICES Amy Casetler [id number] Amy Torrez Kittler 06/19/2025 2 [place] [id number] Amy Torrez Kittler [id number] Amy Torrez Kittler 12/05/2024 1 [employer] - MEDICARE ADVANTAGE PLAN (MEDICARE REPLACEMENT HMO) [id number] Amy Torrez Kittler [id number] Amy Casetler Notes Date Note Type Note Provider Name and Address Organization Details Recorded Time 06/01/20 24 text/htm l Medicare Annual Wellness VisitReported by PatientSocial/Behavioral HistoryFor diet and nutrition, patient reportsdiet is high in saltbut reportshealthy diet. For fracture risk, patient reportsno history of fractures,no recent explained fracture,no sudden unexplained fractures, andno previous musculoskeletal injuries. For physical activity, patient reportsexercises on a regular basis,recent increase in physical activity, andgood physical condition.Mental Status:For depression risk, patient reportsfeels sad, empty, or tearfulandhistory of mood disordersbut reportsno loss of interest in activities,no significant changes in weight,no sleep disturbances or insomnia,no agitation,no loss of energy,no feelings of worthlessness or guilt,no thoughts of suicide, andno history of depression. For concentration and memory, patient reportsforgetting wordsbut reportsno decreased concentrating abilityandno memory lapses or loss. For orientation, patient reportsno disorientation to time,no disorientation to date, andno disorientation to place. For speech/motor difficulties, patient reportsno speech difficulties,no difficulty expressing formulated concepts,no difficulty with fine manipulative tasks,no difficulty writing/copying,no slowed reaction time, anddoes not knock things over when trying to pick them up.Functional AbilityFor hearing, patient reportsno loss of hearing. For vision, patient reportsno vision problems. For activities of daily living, patient reportsable to bathe with limited or no assistance,able to contol urination and bowels,able to dress with limited or no assistance,able to feed self with limited or no assistance,able to get out of chair or bed with limited or no assistance,able to groom with limited or no assistance, andable to toilet with limited or no assistance. For instrumental activities of daily living, patient reportsable to do house work with limited or no assistance,able to grocery shop with limited or no assistance,able to manage medications with limited or no assistance,able to manage money with limited or no assistance,able to prepare meals with limited or no assistance, andable to use the phone with limited or no assistance. For falls risk assessment, patient reportsno frequent falls while walking,no fall in the past year,no fall since last visit, andno dizziness/vertigo. For home safety, patient reportsno unsafe deandra hazzards,no unsafe stairs,working smoke/co detectors,use of seatbelts,has hand bars in the bathroom/shower, andgood lighting in the home.ROS as noted in the HPI Dannie Moore MD [address] [address], [place], [phone], [facility] [place] 06/01/2024 15:19:32 08/30/20 24 text/htm l ROS as noted in the HPI 79 year old female c/o recurrent R. eye redness that she has had twice before,she has been treating it with eye drops she has on hand. This is her 3rd episode in the same eye. Denies fever, chills. Concepción kinsey, [facility] [place] 09/12/2024 10:38:34 12/05/19 25 text/htm l Hypertension F/UReported by PatientHPIFor lifestyle, patient reportsnot exercising regularly. For associated symptoms, patient reportsno dizziness,no lightheadedness,no chest pain,no shortness of breath,no palpitations, andno edema. For medications, patient reportstaking medications as directedandno side effects from medication. HyperlipidemiaReported by PatientHPIFor type of hyperlipidemia, patient reportshypercholesterolemia. For compliance, patient reportsdoes not exercisebut reportscompliantandcompliant with diet. For risk factors, patient reportshypertensionandobesity. For current therapy, patient reportscurrently taking: (simvastatin 20mg),last cholesterol level: (172),last ldl level: (89),last triglyceride level: (108), andlast hdl level: (64). For complications, patient reportsno coronary artery disease,no peripheral artery disease, andno cardiovascular disease. GERD RefluxReported by PatientHPIFor symptoms, patient reportsasymptomatic,no difficulty swallowing,no pain swallowing, andno postprandial pain. For duration, patient reportspresent 5 or more years.Symptoms improved since increasing does 20mg BID. Cough and sore throat are better. DizzinessReported by PatientHPIFor severity, patient reportssome effect on daily activities. For quality, patient reportssymptoms worse during the day. For duration, patient reportsintermittent episodes lasting:andlasts <5 minutes. For context, patient reportsnon-smoker. For associated symptoms, patient reportsno double vision,no slurred speech,no blurred vision,no vision changes,no foggy vision, andno blindness.ROS as noted in the HPI Dannie Moore MD [address], [phone], [facility] [place] 12/05/2024 13:54:08 01/17/20 25 text/htm l ROS as noted in the HPI Started with a non-productive cough 4 nights [...] which gives some help. Mukesh Robertson MD [address], [address], [facility] [place] 01/16/2025 17:06:33 06/05/20 25 text/htm l Medicare Annual Wellness VisitReported by PatientSocial/Behavioral HistoryFor diet and nutrition, patient reportsdiet is high in saltbut reportshealthy diet. For fracture risk, patient reportsno history of fractures,no recent explained fracture,no sudden unexplained fractures, andno previous musculoskeletal injuries. For physical activity, patient reportsexercises on a regular basis,recent increase in physical activity, andgood physical condition.Mental Status:For depression risk, patient reportsfeels sad, empty, or tearfulandhistory of mood disordersbut reportsno loss of interest in activities,no significant changes in weight,no sleep disturbances or insomnia,no agitation,no loss of energy,no feelings of worthlessness or guilt,no thoughts of suicide, andno history of depression. For concentration and memory, patient reportsforgetting wordsbut reportsno decreased concentrating abilityandno memory lapses or loss. For orientation, patient reportsno disorientation to time,no disorientation to date, andno disorientation to place. For speech/motor difficulties, patient reportsno speech difficulties,no difficulty expressing formulated concepts,no difficulty with fine manipulative tasks,no difficulty writing/copying,no slowed reaction time, anddoes not knock things over when trying to pick them up.Functional AbilityFor hearing, patient reportsno loss of hearing. For vision, patient reportsno vision problems. For activities of daily living, patient reportsable to bathe with limited or no assistance,able to contol urination and bowels,able to dress with limited or no assistance,able to feed self with limited or no assistance,able to get out of chair or bed with limited or no assistance,able to groom with limited or no assistance, andable to toilet with limited or no assistance. For instrumental activities of daily living, patient reportsable to do house work with limited or no assistance,able to grocery shop with limited or no assistance,able to manage medications with limited or no assistance,able to manage money with limited or no assistance,able to prepare meals with limited or no assistance, andable to use the phone with limited or no assistance. For falls risk assessment, patient reportsno frequent falls while walking,no fall in the past year,no fall since last visit, andno dizziness/vertigo. For home safety, patient reportsno unsafe deandra hazzards,no unsafe stairs,working smoke/co detectors,use of seatbelts,has hand bars in the bathroom/shower, andgood lighting in the home.ROS as noted in the HPI Dannie Moore MD [address] [address], [place], [address], [facility] [place] 06/05/2025 14:00:38 OBGyn Episode No OBEpisode recorded.
--- OUTSIDE RECORDS SUMMARY | 2025-08-06 12:24 | XMS_ITS | Clinical Summary ---
Author Organization [address] [address] Address [address] [place] [address] Phone Care Team Providers Care Lineman A Class Name Role Phone Dannie Palacio MD Primary Care Provider [phone] Medications omeprazole (PriLOSEC) [address] capsuleIndicatidante ns:Gastroesophag eal reflux disease without esophagitis Take 1 capsule (20 mg total) by mouth 1 (one) time each day. Do not crush or chew. 90 each 1 05/15/2025 11/11/19 26 Active Encounters Date Type Department Care Team Description 05/15/2025 Telephone Gastroenterology - [address] [place] [phone] Karen Porras MD from Last 3 Months Social History Tobacco Use Types Packs/Day Years Used Date Smoking Tobacco: Never Assessed Comments Unknown Sex and Gender Information Value Date Recorded Sex Assigned at Not on file Legal Sex Female 9:24 PM EST Gender Identity Not on file Sexual Orientation Not on file Plan of Treatment Upcoming Encounters Date Type Department Care Team (Late st Contact Info) Description 10/16/2025 3:00 PM EST Office Visit Gastroenterology - [address] [place] [phone] Karen Porras MD [address] [place] [id number] Health Maintenance Due Date Last Done Comments DTaP,Tdap,and Td Vaccines (1 - Tdap) 1966 Pneumococcal Vaccine: 50+ Ye ars (1 of 1 - PCV) 1997 Zoster Vaccines (1 of 2) 1997 RSV Immunization Adult Patie nts (1 - 1-dose 75+ series) 2022 Falls Risk Assessment 08/25/2024 Hepatitis C Screening 08/25/2024 Medicare Annual Wellness Visit 08/25/2024 Osteoporosis Screening (Bone Density Screening) 08/25/2024 Social Influencers of Health Screening 08/25/2024 Depression Screening 11/01/2024 COVID-19 Vaccine (1 - 2023-2 5 season) 2025 Influenza Vaccine (#1) 2025 HIB Vaccines Aged Out No longer eligi ble based on patient's age to complete this topic HPV Vaccines Aged Out No longer eligi ble based on patient's age to complete this topic Hepatitis A Vaccines Aged Out No long er eligible based on patient's age to complete this topic Hepatitis B Vaccines Aged Out No long er eligible based on patient's age to complete this topic IPV Vaccines Aged Out No longer eligi ble based on patient's age to complete this topic MMR Vaccines Aged Out No longer eligi ble based on patient's age to complete this topic Meningococcal ACWY Vaccine Aged Out N o longer eligible based on patient's age to complete this topic Meningococcal B Vaccine Aged Out No l onger eligible based on patient's age to complete this topic RSV Immunization Patients Un nate 20 months Aged Out No longer eligible b ased on patient's age to complete this topic Varicella Vaccines Aged Out No longer eligible based on patient's age to complete this topic Insurance MEDICARE [facility] Care Teams Lineman A Class Relationship Specialty Start Date End Date Dannie Palacio MD [address] PCP - General Internal Medicine 08/04/17
== END 2025-08-06 10:37 | disposition home or self-care (01) ==
LOC: HO.HOP 10:30
PROVIDERS: PCP Pediatrics; Visit Provider Psychiatry & Neurology Psychiatry
DX: F32.4 Major depressive disorder, single episode, in partial remission (principal); I10 Essential (primary) hypertension
CPT/HCPCS: 90833; 99213

== ENCOUNTER → 2025-08-06 10:30 | Outpatient (BNVA) | payer MEDICARE, SELFPAY | PROVIDERS: PCP Pediatrics; Visit Provider Psychiatry & Neurology Psychiatry | DX: F32.4 Major depressive disorder, single episode, in partial remission (principal); I10 Essential (primary) hypertension; Z79.899 Other long term (current) drug therapy | CPT/HCPCS: 99212 ==

== ENCOUNTER 2025-10-30 11:59 | Outpatient (AMB) | payer MEDICARE, SELFPAY ==
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
--- OUTSIDE RECORDS SUMMARY | 2025-10-30 16:02 | XMS_ITS | Clinical Summary ---
Author Organization [facility] [address] [facility] Address [address] [place] [address] Phone Care Team Providers Care Wellness Coach Name Role Phone Dannie Palacio MD Primary Care Provider [phone] Allergies Active Allergy Reactions Criticality Noted Date Comments Meperidine 10/16/2025 Medications omeprazole (PriLOSEC) [address] capsuleIndicatio ns:Gastroesophag eal reflux disease without esophagitis Take 1 capsule (20 mg total) by mouth 1 (one) time each day. Do not crush or chew. 90 each 1 5 11/11/19 26 Active buPROPion XL (WELLBUTRIN XL) 300 mg 24 hr tablet Take 1 tablet (300 mg total) by mouth 1 (one) time each day in the morning. 5 Active FLUoxetine (PROzac) 10 mg capsule Take 1 capsule (10 mg total) by mouth 1 (one) time each day. 5 Active LORazepam (ATIVAN) 1 mg tablet Take 1 tablet (1 mg total) by mouth every 8 (eight) hours if needed. 5 Active metoprolol succinate (TOPROL-XL) 100 mg 24 hr tablet Take 1 tablet (100 mg total) by mouth 1 (one) time each day. 5 Active simvastatin (ZOCOR) 20 mg tablet Take 1 tablet (20 mg total) by mouth at bedtime. 5 Active traZODone (DESYREL) 100 mg tablet Take 1 tablet (100 mg total) by mouth at bedtime as needed. for insomnia Active multivitamin tablet Take 1 tablet by mouth 1 (one) time each day. Active Encounters Date Type Department Care Team Description 10/16/2025 3:00 PM EST Office Visit Gastroenterology - [address] [facility] [address] [place] [address] Karen Porras MD Gastroesophageal reflux disease without esophagitis (Primary Dx); Colon cancer screening; Chronic idiopathic constipation from Last 3 Months Surgical History Surgery Date Site/Laterality Comments APPENDECTOMY 195 HYSTERECTOMY 1976 THYROIDECTOMY ESOPHAGOGASTRODUODENOSCOPY 04/12/2020 nl gastric bx, small hh ESOPHAGOGASTRODUODENOSCOPY 11/04/2012 nl gastric and esophagus bx COLONOSCOPY 05/19/2019 tics, hemorrhoids COLONOSCOPY 09/19/2013 nl COLONOSCOPY 04/17/2008 nl Medical History Medical History Date Comments Anxiety 1967 Depression 1967 Arthritis 2009 Hypertension 2005 GERD (gastroesophageal reflux disease) Hyperlipidemia Migraines Osteopenia Family History Medical History Relation Name Comments Hypertension Father Alcohol abuse Mother Colon cancer Mother Relation Name Status Comments Father Mother Social History Tobacco Use Types Packs/Day Years Used Date Smoking Tobacco: Never Tobacco Cessation:Counseling Given: Not Answered Alcohol Use Standard Drinks/Week Comments Not Currently 0 (1 standard drink = 0.6 oz pur e alcohol) A glass of wine at [place] Comments Unknown Sex and Gender Information Value Date Recorded Sex Assigned at Not on file Legal Sex Female 9:24 PM EST Gender Identity Not on file Sexual Orientation Not on file Last Filed Vital Signs Vital Sign Reading Time Taken Comments Blood Pressure 150/80 10/16/2025 3:06 PM EST Pulse - - Temperature - - Respiratory Rate - - Oxygen Saturation - - Inhaled Oxygen Concentration - - Weight 68 kg (150 lb) 10/16/2025 3:06 PM EST Height 156.2 cm (5' 1.5 ) 10/16/2025 3:06 PM EST Body Mass Index 27.88 10/16/2025 3:06 PM EST Plan of Treatment Health Maintenance Due Date Last Done Comments Drug Screen 1945 Non-Opioid Controlled Substance Agreement 1945 Zoster Vaccines (1 of 2) 1997 RSV Immunization Adult Patients (1 - 1-dose 75+ series) 2022 Cholesterol Screening (Lipid Panel) 08/25/2024 Falls Risk Assessment 08/25/2024 Hepatitis C Screening 08/25/2024 Medicare Annual Wellness Visit 08/25/2024 Social Influencers of Health Screening 08/25/2024 Depression Screening 11/01/2024 COVID-19 Vaccine ( season) 2026 08/21/2025, 07/17/2024, 08/13/2023, Additional history exists DTaP,Tdap,and Td Vaccines (3 - Td or Tdap) 04/05/2033 04/05/2023, 03/06/2013 Osteoporosis Screening (Bone Density Screening) 03/06/2035 03/06/2025, 11/11/2018 Pneumococcal Vaccine: 50+ Years Completed 06/12/2015, 07/26/2012 Influenza Vaccine Completed 08/21/2025, , 07/22/2023, Additional history exists HIB Vaccines Aged Out No longer eligi [...] to complete this topic RSV Immunization Patients Under 20 months Aged Out No longer eligible based on patient's age to complete this topic Varicella Vaccines Aged Out No longer eligible based on patient's age to complete this topic Insurance MEDICARE [facility] Care Teams Wellness Coach Relationship Specialty [place] [address] [place] [address] PCP - General Internal Medicine 08/04/17
== END 2025-10-30 12:45 | disposition home or self-care (01) ==
LOC: HO.HOP 11:59
PROVIDERS: PCP Pediatrics; Visit Provider Psychiatry & Neurology Psychiatry
DX: F34.1 Dysthymic disorder (principal)
CPT/HCPCS: 90833; 99213

== ENCOUNTER → 2025-10-30 11:59 | Outpatient (BNVA) | payer MEDICARE, SELFPAY | PROVIDERS: PCP Pediatrics; Visit Provider Psychiatry & Neurology Psychiatry | DX: F34.1 Dysthymic disorder (principal) | CPT/HCPCS: 99212 ==